=== PATIENT | female | born 1955 | race Caucasian/White ===

== ENCOUNTER 2018-02-21 00:45 | Outpatient (CLI) | payer BC, SELFPAY ==
--- NOTE | 2018-02-21 15:30 | DI.MAMMO_ITS ---
SYMPTOMS/DIAGNOSIS: SCREENING, Z12.31 MAMMOGRAM: Mammograms were interpreted according to the usual protocol including computer analysis with CAD system, tomosynthesis and C view imaging. The breasts are heterogeneously dense. No dominant mass or clumped microcalcification identified in either breast. Current examination is compared with previous examinations including January 2017 and there has been no gross interval change in appearance in comparison with the previous studies. CONCLUSION: No specific evidence of malignancy at this time. Routine screening examinations are suggested at yearly intervals in this age group according to the ACS/ACR guidelines. Category 1, breast density category C. MQSA ASSESSMENT OF FINDINGS: Negative. Category 1. Patient will receive a letter notifying them of these results. Bi-RADS category C. The breasts are heterogeneously dense, which may obscure small masses.
== END 2018-02-21 01:05 ==
PROVIDERS: PCP Nurse Practitioner; Visit Provider Nurse Practitioner
DX: Z12.31 Encounter for screening mammogram for malignant neoplasm of breast (principal)
CPT/HCPCS: 77063; 77067

== ENCOUNTER 2019-02-22 02:01 | Outpatient (CLI) | payer BC, SELFPAY ==
--- NOTE | 2019-02-22 15:54 | DI.MAMMO_ITS ---
EXAM: MAMMO SCREENING CLINICAL HISTORY: SCREENING Z12.31. TECHNIQUE: Mammograms were interpreted according to the usual protocol including computer analysis w [employer] CAD system, tomosynthesis and C-view imaging. COMPARISON: Comparison is made with previous studies. FINDINGS: The breasts are of heterogeneously dense appearance. No dominant mass or clumped microcalcification i s identified in either breast. Current examination is compared with previous examinations including O ctober 2018 and there has been no gross interval change in appearance in comparison with previous denis dies. IMPRESSION: No specific evidence of malignancy at this time. Routine screening examinations are suggested at year ly intervals in this age group according to the ACS ACR guidelines category 1. Breast density catego ry C. BI-RADS Cat 1 - Negative. Breast Density - Category C - Heterogeneously dense.
== END 2019-02-22 02:21 ==
PROVIDERS: PCP Nurse Practitioner; Visit Provider Nurse Practitioner Family
DX: Z12.31 Encounter for screening mammogram for malignant neoplasm of breast (principal)
CPT/HCPCS: 77063; 77067

== ENCOUNTER 2019-11-19 17:47 | Outpatient (REF) | payer BC, SELFPAY ==
--- NOTE | 2019-11-19 16:00 | PAPFT_PTH ---
PATIENT: Monse Reyes LOC: [facility]#:[id number] AGE/SX: 64/F ROOM: RE11/19/[address]: Sue Sandoval : 1955 BED: DIS: 11/19/2019 SPEC #: [id number] RECD: 11/20/19 12:52 STATUS: KRISTINE REQ #: [id number] CHARITY: 11/19/19 16:[address]: Sue Sandoval DEPT: [facility] Cytology RECD BY: Emely Meza ENTERED: 11/20/19 12:52 SP TYPE: PAPFT OTHR DR: Aaliyah Martinez Tissues: 1 - CX/ENDOCX FOR PAP SMEARS Procedures: PAP THIN PREP/UVM Screening Comments: [id number] (UNSATISFACTORY FOR EVALUATION)
== END 2019-11-19 18:07 ==
LOC: NCHCN 17:47
PROVIDERS: PCP Nurse Practitioner; Visit Provider Family Medicine
DX: Z00.00 Encounter for general adult medical examination without abnormal findings (principal); Z12.4 Encounter for screening for malignant neoplasm of cervix; Z11.51 Encounter for screening for human papillomavirus (HPV); Z01.419 Encounter for gynecological examination (general) (routine) without abnormal findings; R87.615 Unsatisfactory cytologic smear of cervix
CPT/HCPCS: 88142

== ENCOUNTER 2020-03-03 00:41 | Outpatient (CLI) | payer BC, SELFPAY ==
--- NOTE | 2020-03-03 | DI.MAMMO_ITS ---
EXAM: MG MAMMO SCREENING CLINICAL HISTORY: SCREENING, Z12.31 TECHNIQUE: Bilateral full field digital CC and MLO mammographic images were obtained with 3D tomosyn thesis and utilizing computer aided detection (CAD). COMPARISON: Available for comparison. FINDINGS: Masses/Architectural Distortion: None seen. Microcalcifications: No suspicious pleomorphic-type are seen. Skin Thickening/Nipple Retraction: None. IMPRESSION: 1. No significant interval change with no specific features of malignancy noted. 2. Unless there is more urgent need, screening mammography is recommended, as per [employer] guidelines. BI-RADS Category 1 - Negative Breast Density - Category C - Heterogeneously dense The mammogram demonstrates the patient's breast tissue is dense. Dense breast tissue is very common a nd is not abnormal but dense breast tissue can make it harder to find cancer on a mammogram. Also, de nse breast tissue may increase their breast cancer risk. This information about the result of the [facility] mogram report was provided to the patient to raise their awareness. Use this report when you speak wi th the patient about their risks for breast cancer, which includes their family history. At that time , you may recommend for more screening tests (Ultrasound or MRI) as they might be useful based on the ir risk. A negative radiographic report should not delay biopsy if a dominant or clinically suspicious mass is present. Up to ten percent of cancers are not identified on mammography. A negative report may reinforce clinical impression. Adenosis and dense breasts may obscure an underlying neoplasm. False positive reports average 6 to 10%. Patient will receive a letter notifying them of these results.
== END 2020-03-03 01:01 ==
PROVIDERS: PCP Family Medicine; Visit Provider Family Medicine
DX: Z12.31 Encounter for screening mammogram for malignant neoplasm of breast (principal)
CPT/HCPCS: 77063; 77067

== ENCOUNTER 2020-11-17 18:19 | Outpatient (REF) | payer BC, SELFPAY ==
[2020-11-17 16:31] LABS: ALT 110 U/L (14-59); AST 61 U/L (15-37); Albumin 3.3 g/dL (3.4-5.0); Alkaline Phosphatase 461 U/L (46-116); Anion Gap 10.1 mmol/L (3-11); BUN 11 mg/dL (7-18); Bilirubin, Total 0.5 mg/dL (0.2-1.0); CO2 27.9 mmol/L (21.0-32.0); CREATININE 0.8 mg/dL (0.55-1.02); Calcium 9.5 mg/dL (8.5-10.1); Calculated LDL 73 mg/dL (<100); Chloride 103 mmol/L (98-107); Cholesterol 138 mg/dL (<200); Glucose 102 mg/dL (74-106); HDL Cholesterol 51 mg/dL (40-60); Potassium 4.6 mmol/L (3.5-5.1); Sodium 141 mmol/L (136-145); Total Protein 7.7 g/dL (6.4-8.2); Triglyceride 73 mg/dL (<150)
[2020-11-17 16:54] LABS: Vitamin D 25 Total 27.3 ng/mL (30-100)
== END 2020-11-17 18:20 | disposition home or self-care (01) ==
LOC: NCHCN 18:19
PROVIDERS: PCP Family Medicine; Visit Provider Family Medicine
DX: Z00.00 Encounter for general adult medical examination without abnormal findings (principal); E78.5 Hyperlipidemia, unspecified; I10 Essential (primary) hypertension
CPT/HCPCS: 80053; 80061; 82306

== ENCOUNTER 2020-12-17 19:40 | Outpatient (REF) | payer BC, SELFPAY ==
[2020-12-17 22:01] LABS: ALT 199 U/L (14-59); AST 127 U/L (15-37); Albumin 3.3 g/dL (3.4-5.0); Alkaline Phosphatase 852 U/L (46-116); Bilirubin, Direct 0.3 mg/dL (0.0-0.2); Bilirubin, Total 0.3 mg/dL (0.2-1.0); Total Protein 7.5 g/dL (6.4-8.2)
== END 2020-12-17 19:41 | disposition home or self-care (01) ==
LOC: NCHCN 19:40
PROVIDERS: PCP Family Medicine; Visit Provider Family Medicine
DX: R79.89 Other specified abnormal findings of blood chemistry (principal)
CPT/HCPCS: 80076

== ENCOUNTER 2020-12-30 17:13 | Outpatient (REF) | payer BC, SELFPAY ==
[2020-12-30 20:57] LABS: ALT 258 U/L (14-59); AST 161 U/L (15-37); Albumin 3.4 g/dL (3.4-5.0); Alkaline Phosphatase 765 U/L (46-116); Bilirubin, Direct 0.4 mg/dL (0.0-0.2); Bilirubin, Total 0.6 mg/dL (0.2-1.0); Total Protein 7.4 g/dL (6.4-8.2)
[2021-01-01 09:01] LABS: HBs Antibody, Quant <3.1 mIU/mL (See Note); Hepatitis B Surface Ab Negative (See Note)
[2021-01-01 10:08] LABS: Hepatitis C Ab w Rflx HCV PCR Negative (Negative)
== END 2020-12-30 17:14 | disposition home or self-care (01) ==
LOC: NCHCN 17:13
PROVIDERS: PCP Family Medicine; Visit Provider Family Medicine
DX: R79.89 Other specified abnormal findings of blood chemistry (principal)
CPT/HCPCS: 80076; 86706; 86803

== ENCOUNTER 2021-01-05 15:27 | Outpatient (REF) | payer BC, SELFPAY ==
[2021-01-05 21:40] LABS: ALT 82 U/L (14-59); AST 25 U/L (15-37); Albumin 3.4 g/dL (3.4-5.0); Alkaline Phosphatase 532 U/L (46-116); Bilirubin, Direct 0.1 mg/dL (0.0-0.2); Bilirubin, Total 0.2 mg/dL (0.2-1.0); Total Protein 7.6 g/dL (6.4-8.2)
== END 2021-01-05 15:28 | disposition home or self-care (01) ==
LOC: NCHCN 15:27
PROVIDERS: PCP Family Medicine; Visit Provider Family Medicine
DX: R79.89 Other specified abnormal findings of blood chemistry (principal)
CPT/HCPCS: 80076

== ENCOUNTER 2021-01-23 04:41 | Outpatient (CLI) | payer BC, SELFPAY ==
[2021-01-23] MEDS: Breeza Beverage 473 ML BTL PO ×2 (07:49→07:50)
[2021-01-23] MEDS: Omnipaque 350 MG/ML 50 ML BTL PO (07:50)
[2021-01-23 07:54] LABS: CREATININE 0.8 mg/dL (0.55-1.02)
--- NOTE | 2021-01-23 09:21 | DI.CT_ITS ---
Exam(s) CT ABDOMEN PELVIS W EXAM: CT ABDOMEN PELVIS W CLINICAL HISTORY: PANCREATIC LESION,K86.9 TECHNIQUE: COMPARISON: CT ABD PELVIS WITH CONTRAST from 01/26/2012 FINDINGS: CT examination of the abdomen and pelvis was performed with bolus infusion 100 cc of Omnipaque 350 an d ingestion of dilute barium. Images obtained through the lung bases are unremarkable. Liver is mildly enlarged and contains numerous cysts, as seen on prior CT of January 2012. There i s marked intra and extrahepatic biliary dilatation with the common duct measuring up to 16 millimeter s in diameter. There is an apparent obstructing lesion distal common bile duct with a rounded appear ance suggesting a soft tissue mass, measuring about 1 cm to 1.5 cm in diameter. Pancreatic duct is m inimally dilated. Pancreatic head shows heterogeneous attenuation with no definite mass. No other hepatic mass identified. Spleen is unremarkable in appearance. Gallbladder appears contrac ritu and thick walled and there is a dilated cystic duct. There are multiple loops of dilated small bowel with disordered folds in the right lower quadrant. F indings are nonspecific. Differential diagnosis would include inflammatory or neoplastic disease. There is a left lower quadrant colostomy, please correlate regarding reason for colectomy. No eviden ce of bowel obstruction. Abdominal aorta is of normal diameter with heavily calcified wall. Major visceral branches appear pa tent. Adrenals are unremarkable in appearance bilaterally. Multiple renal cysts are noted bilaterally, no solid renal lesion identified. No nephrolithiasis hyd ro nephrosis or ureterolithiasis. No gross abdominal or pelvic adenopathy seen. No significant abdominal wall hernia. Appendix is normal. No evidence of diverticulitis. There is a right pelvic cyst noted measuring about 28 x 9 millimeters in diameter. This could be of ovarian origin or be related to prior pelvic surgery. Pelvic ultrasound suggested for correlation. Apparent small bowel located in the pelvis appears to communicate with rectosigmoid remnant, please c orrelate regarding prior surgical procedure, fistula not excluded. IMPRESSION: Findings are highly suggestive of an obstructing lesion of the distal common bile duct, probably a so lid mass. Correlation with ERCP recommended. Mass could originate in the head of the pancreas or wi thin the bile duct. Prior bowel surgery with left lower quadrant colostomy, please correlate with surgical history, fistu la not excluded as described above. Abnormal loops of small bowel, nonspecific, are also noted in right lower quadrant, inflammatory or n eoplastic disease not excluded. RADIATION DOSE DELIVERED: 892.85mGy.cm Total DLP 13.33mGy CTDIvol RADIATION OPTIMIZATION: All CT scans at this facility use at least one of these dose optimization te chniques: automated exposure control; mA and/or kV adjustment per patient size (includes targeted exa ms where dose is matched to clinical indication); or iterative reconstruction.
[2021-01-23] MEDS: Omnipaque 350 MG/ML 100 ML BTL IJ (09:22)
[2021-01-23] MEDS: Normal Saline 20 ML VIAL IJ (09:24)
== END 2021-01-23 05:01 ==
PROVIDERS: PCP Family Medicine; Visit Provider Family Medicine
DX: K86.9 Disease of pancreas, unspecified (principal); R93.5 Abnormal findings on diagnostic imaging of other abdominal regions, including retroperitoneum
CPT/HCPCS: 74177; 82565; J3490; Q9967

== ENCOUNTER 2021-04-29 16:46 | Outpatient (REF) | payer BC, SELFPAY ==
[2021-04-29 22:24] LABS: ALT 22 U/L (14-59); AST 15 U/L (15-37); Albumin 3.7 g/dL (3.4-5.0); Alkaline Phosphatase 88 U/L (46-116); Bilirubin, Direct 0.1 mg/dL (0.0-0.2); Bilirubin, Total 0.2 mg/dL (0.2-1.0); Total Protein 7.7 g/dL (6.4-8.2)
[2021-05-01 08:53] LABS: HBs Antibody, Quant 3.3 mIU/mL (See Note); Hepatitis B Surface Ab Negative (See Note)
== END 2021-04-29 16:47 | disposition home or self-care (01) ==
LOC: NCHCN 16:46
PROVIDERS: PCP Family Medicine; Visit Provider Family Medicine
DX: R79.89 Other specified abnormal findings of blood chemistry (principal)
CPT/HCPCS: 80076; 86706

== ENCOUNTER 2021-11-24 10:18 | Outpatient (REF) | payer BC, SELFPAY ==
[2021-11-24 15:58] LABS: ALT 23 U/L (14-59); AST 18 U/L (15-37); Albumin 3.7 g/dL (3.4-5.0); Alkaline Phosphatase 73 U/L (46-116); Anion Gap 9.7 mmol/L (3-11); BUN 20 mg/dL (7-18); Bilirubin, Total 0.4 mg/dL (0.2-1.0); CO2 27.3 mmol/L (21.0-32.0); CREATININE 0.8 mg/dL (0.55-1.02); Calcium 9.1 mg/dL (8.5-10.1); Calculated LDL 213 mg/dL (<100); Chloride 100 mmol/L (98-107); Cholesterol 290 mg/dL (<200); Glucose 93 mg/dL (74-106); HDL Cholesterol 49 mg/dL (40-60); Potassium 4.7 mmol/L (3.5-5.1); Sodium 137 mmol/L (136-145); Total Protein 7.5 g/dL (6.4-8.2); Triglyceride 143 mg/dL (<150)
== END 2021-11-24 10:19 | disposition home or self-care (01) ==
LOC: NCHCN 10:18
PROVIDERS: PCP Family Medicine; Visit Provider Family Medicine
DX: I10 Essential (primary) hypertension (principal); E78.5 Hyperlipidemia, unspecified; Z00.00 Encounter for general adult medical examination without abnormal findings
CPT/HCPCS: 80053; 80061

== ENCOUNTER 2021-12-08 17:25 | Outpatient (REF) | payer BC, SELFPAY ==
[2021-12-08 15:25] LABS: Abs Immature Grans 0.12 10^3/uL (0.0-0.06); Absolute Eosinophil Count 0.17 10^3/uL (0.0-0.7); Basophils % 0.6; Eosinophils % 0.8; HCT 46.7 % (36.0-46.0); HGB 15.1 g/dL (11.2-15.7); Immature Grans % 0.6; Lymphocytes % 12.3; MCH 27.2 pg (27.0-33.0); MCHC 32.3 % (32.0-36.0); MCV 84 fL (80-95); MPV 10.4 fL (8.0-11.0); Monocytes % 6.8; Neutrophils % 78.9; Platelet Count 547 10^3/uL (130-400); RBC 5.56 10^6/uL (3.93-5.22); RDW 13.2 % (11.7-14.6); RDW-SD 41.1 fL; WBC 21.36 10^3/uL (4.4-10.8)
[2021-12-08 15:28] LABS: Absolute Basophil Count 0.13 10^3/uL (0.0-0.2); Absolute Lymphocyte Count 2.63 10^3/uL (1.2-3.4); Absolute Monocyte Count 1.45 10^3/uL (0.1-0.8); Absolute Neutrophil Count 16.85 10^3/uL (1.2-6.7)
[2021-12-08 15:32] LABS: ESR 110 mm/hr (0-30)
[2021-12-08 15:53] LABS: ALT 18 U/L (14-59); AST 15 U/L (15-37); Albumin 3.2 g/dL (3.4-5.0); Alkaline Phosphatase 80 U/L (46-116); Anion Gap 14.3 mmol/L (3-11); BUN 14 mg/dL (7-18); Bilirubin, Total 0.4 mg/dL (0.2-1.0); CO2 28.7 mmol/L (21.0-32.0); CREATININE 0.9 mg/dL (0.55-1.02); Calcium 9.6 mg/dL (8.5-10.1); Chloride 94 mmol/L (98-107); Glucose 109 mg/dL (74-106); Potassium 3.4 mmol/L (3.5-5.1); Sodium 137 mmol/L (136-145); Total Protein 7.9 g/dL (6.4-8.2)
== END 2021-12-08 17:26 | disposition home or self-care (01) ==
LOC: NCHCN 17:25
PROVIDERS: PCP Family Medicine; Visit Provider Family Medicine
DX: R10.9 Unspecified abdominal pain (principal); R19.7 Diarrhea, unspecified
CPT/HCPCS: 80053; 85652; 85025

== ENCOUNTER → 2021-12-09 09:53 | Outpatient (CLI) | payer BC, SELFPAY ==
--- NOTE | 2021-12-09 | DI.CT_ITS ---
Exam(s) CT ABDOMEN PELVIS W EXAM: CT ABDOMEN PELVIS W CLINICAL HISTORY: ACUTE ABD PAIN, R10.9. TECHNIQUE: Imaging Protocol: Axial computed tomography images with coronal and sagittal reformatted images were created and reviewed CONTRAST MATERIAL: Intravenous: Omnipaque 350 Contrast volume:100 ml Oral: yes / COMPARISON: CT CT ABDOMEN PELVIS W from 01/23/2021 FINDINGS: ABDOMEN: Lung Bases: Normal where visualized. Liver: Normal density. No measurable mass. Gallbladder and biliary tract: Gallbladder contracted. Previously noted mass at the distal common bi le duct no longer seen. No radiodense calculus or dilation. Pancreas: Mildly atrophic. No ductal dilatation. Spleen: Normal. Kidneys: Normal size, contour and axis. No radiodense stones or obstructive uropathy. Several small b ilateral renal cysts. No masses seen. Adrenal glands: No masses seen. Abdominal Aorta: Abdominal portion non-dilated. Atherosclerotic changes. PELVIS: Bladder: Nearly empty no gross wall thickening. No calculi.No focal mass. Bowel: Left-sided colostomy. No evidence of obstruction. Marked wall thickening of the colon from t he ascending portion through the ostomy. Appendix normal. Peritoneal cavity: No ascites, collection . Bones: The degenerative changes. Apparent fusion between facet L4 and L5. Reproductive organs: Stab le small right ovarian cyst. Lymph nodes: Unremarkable. Impression: Marked diffuse wall thickening throughout the colon, consistent with colitis. RADIATION DOSE DELIVERED: 759.69mGy.cm Total DLP DATA REPOSITORY: All CT scans at this facility are submitted to the National Radiology Data Registry (NRDR) Dose Index Registry (DIR) with the [employer] (ACR). RADIATION OPTIMIZATION: All CT scans at this facility use at least one of these dose optimization te chniques: automated exposure control; mA and/or kV adjustment per patient size (includes targeted exa ms where dose is matched to clinical indication); or iterative reconstruction.
--- OUTSIDE RECORDS SUMMARY | 2021-12-09 09:56 | XMS_ITS | Encounter Summary ---
:1955 Author Organization [facility] [place] [address] Care Team Providers Name Role Phone Puneet Kuamr APRN Primary Care Provider Encounter Details Date Type Department Care Team Description 01/26/2012 Orders Only Radiology Brianna Ochoa MD Abscess (Primary Dx) [facility] [place] [address] DIAGNOSTIC [phone] RADIOLOGY [place], [place] [address] (Wo rk) Social History Tobacco Use Types Packs/Day Years Used Date Never Assessed Sex Assigned at Date Recorded Not on file documented as of this encounter Progress Notes Brianna Ochoa MD - 01/26/2012 5:47 PM EDT PRE-PROCEDURE VIR NOTE Date of : 1955 Age: 56 y.o. PCP: PUNEET KUMAR APRN Referring Physician (if different): LAUREN ([phone]) Indication: Pelvic abscess Planned Procedure: CT guided right transgluteal pelvic abscess drain placement Chief Complaint/Diagnosis: 56 yo female 6d s/p Colon resection with end colostomy and abscess washout with persistently elevated WBC. CT scan shows persistent pelvic abscess. Pertinent Past Medical/Surgical History: Perforated diverticulitis over a year ago for which her colostomy was taken down September 2011. HTN Allergies not on file No current outpatient prescriptions on file prior to encounter. Pertinent ROS: as per HPI Pertinent Family History: non contributory Social History: n/a Labs: No results found for this basename: wbc, anc, hct, platelet, inr, bun, cr, gfr No results found for this basename: alkphos, ast, albumin, bilidir, bilitot, alt, [facility] 01/25/12 eGFR >60 Platelet 537,000 INR 1.1 Imaging: Outside CT from [facility] as above Assessment / Plan: CT guided right transgluteal pelvic abscess drain placement Medications to discontinue: none Prophylactic antibiotic: none (currently on ABx) Planned access site / position: prone, right documented in this encounter Plan of Treatment Not on filedocumented as of this encounter Results CT retroperitoneal abscess drain (01/27/2012 1:26 PM EDT) Anatomical Region Laterality Modality Abdomen Computed Tomography Specimen (Source) Anatomical Collection Method Collection Time Re ceived Time Location / / Volume Laterality 01/27/2012 1:26 PM EDT Narrative 01/28/2012 5:01 PM EDT ?VIR ?? PROCEDURE NOTE ?Procedure: ?? CT-guided pelvic abscess drainage catheter placement (acc ?? # [id number]) ?Indication : Persistently elevated WBC s/p ?? colon resection with OSH CT positive for pelvic abscess. We have been ?? consulted for abscess drain age. ?Technique: ?? After discussing risks (including infection and hemorrhag e), and benefits, ?? patient consented to the procedure. ?Due ?? to the dylan nful nature of the procedure, split doses of fentanyl and versed ?? were administe red by the IR nurse during continuous monitoring of pulse, ?? blood pressure a nd oxygen saturation. Total dose of fentanyl 200 mcg IV, versed 4 mg IV. ?Pelvic ?? abscess was localized with noncontrast CT pelvis. ?? After sterile preparation overlying skin using maximum sterile barrier ?? technique, 1% lidocai ne SQ was administered for ?? anesthesia, and an 18 ga needle was advanced under C T fluoroscopic guidance ?? into the collection. Over an .035 guidewire, ?? tract was dilated to 10 Fr, and a 10.2 Fr locking pigtail drain was placed. Cat heter was secured ?? to the skin and left to bulb drainage. Post-procedure CT images were ?? obtained. Patient tolerated the procedure well. There were no immediate ?? complications. ? Findings: ?? 50cc bloody purulent fluid aspirated. Sample sent for microbiological ?? analysis. ?Impres bridger: ?? Successful CT guided transgluteal pelvic abscess ?? drainage catheter plac ement. ?Resident/Fellow: ?? Robert Arzate MD ?Attending: ?? Brianna Ochoa MD ?I, ?? Dr. Ochoa, was present and scrubbed for the entire procedure. ?EBL: ?? 0 ? ; ?? {CR} ? ; ?? {CR} ? ; ?? {CR} ? ; ?? {CR} ? ; ?? {CR} ? Film and interpretation reviewed by the attending Procedure Note Brianna Ochoa MD - 01/28/2012 VIR PROCEDURE NOTE Procedure: CT-guided pelvic abscess drainage catheter placement (acc # [id number]) Indication : Persistently elevated WBC s/p colon resection with OS H CT positive for pelvic abscess. We have been consulted for abscess drainage . Technique: After discussing risks (including infection and hemorrhag e), and benefits, patient consented to the procedure. Due to the painful ashley ure of the procedure, split doses of fentanyl and versed were administered by the IR nurse during continuous monitoring of pulse, blood pressure and oxygen saturation. Total dose of fentanyl 200 mcg IV, versed 4 mg IV. Pel nicolette abscess was localized with noncontrast CT pelvis. After sterile pre paration overlying skin using maximum sterile barrier technique, 1% lidocaine SQ was administered for anesthesia, and an 18 ga needle was advanced under C T fluoroscopic guidance into the collection. Over an .035 guidewire, tra ct was dilated to 10 Fr, and a 10.2 Fr locking pigtail drain was placed. Cat heter was secured to the skin and left to bulb drainage. Post-procedure CT images were obtained. Patient tolerated the procedure well. There were no immediate complications. Findings: 50cc bloody purulent fluid asp irated. Sample sent for microbiological analysis. Impression: Gutierres ccessful CT guided transgluteal pelvic abscess drainage catheter placeme nt. Resident/Fellow: Robert Arzate MD Attending: Brianna Ochoa MD I, Dr. Ochoa, was present and scrubbed for the entire procedure. E BL: 0 ; {CR} ; {CR} ; {CR} ; {CR} ; {CR} Film and interpretation reviewed by the attending Brianna Ochoa MD IMG CT ORDERABLES documented in this encounter Visit Diagnoses Diagnosis Abscess - Primary Cellulitis and abscess of unspecified si te Abscess Cellulitis and abscess of unspecified si te documented in this encounter Care Teams Clocksmith Relationship Specialty Start Date End Date Puneet Kumar APRN PCP - General 03/11/11 02/05/21 [address] [place] [address] documented as of this encounter
--- OUTSIDE RECORDS SUMMARY | 2021-12-09 09:56 | XMS_ITS | Encounter Summary ---
:1955 Author Organization [facility] [place] [address] Care Team Providers Name Role Phone Tiffanie Kumar APRN Primary Care Provider Encounter Details Date Type Department Care Team Description 01/23/2021 Ancillary Procedure Radiology Library at Sue Sandoval MD [facility] [address] [place] [address] [facility] [phone] [place] [address] (Work) [phone] Social History Tobacco Use Types Packs/Day Years Used Date Never Assessed Sex Assigned at Date Recorded Not on file documented as of this encounter Plan of Treatment Not on filedocumented as of this encounter Procedures Procedure Name Priority Date/Time Associated Diagnosis Comme nts FILM LIBRARY Routine 01/23/2021 12:00 AM Results for this STORAGE ONLY CT EDT procedure ar e in ABDOMEN AND PELVIS the resul ts section. documented in this encounter Results Film Library- Storage Only CT Abdomen & Pelvis (01/23/2021 12:00 AM EDT) Specimen (Source) Anatomical Location Collection Method / Collectio n Time Received Time / Laterality Volume Narrative CAIO - 01/28/2021 4:07 PM EDT This exam is auto-finalizing. It's purpo se is for storage only. Sue Sandoval MD IMG FILM LIBRARY ORDERABLES Performing Organization Address City/State/ZIP Code Phon e Number [place], [place] documented in this encounter Visit Diagnoses Not on filedocumented in this encounter Care Teams Senior Vice President And Chief Information Officer Relationship Specialty Start Date End Date Tiffanie Kumar APRN PCP - General 03/11/11 02/05/21 [address] [place], [place] [id number] documented as of this encounter
--- OUTSIDE RECORDS SUMMARY | 2021-12-09 09:56 | XMS_ITS | Encounter Summary ---
:1955 Author Organization [facility] [place] [address] Care Team Providers Name Role Phone Tiffanie Kumar FABIEN Primary Care Provider Encounter Details Date Type Department Care Team Description 02/03/2021 Telephone Gastroenterology at [facility] [place] Debbie Kyle [facility] [place] [address] Social History Tobacco Use Types Packs/Day Years Used Date Never Assessed Sex Assigned at Date Recorded Not on file documented as of this encounter Miscellaneous Notes Telephone Encounter - Debbie Kyle - 02/03/2021 3:01 PM EDT Monse Reyes [id number] Diagnosis/Indication: 65-year-old smoker recently found to have elevated AST/ALT (but normal T bili)on routine labs. First attributed to statin/Tylenol use, both stopped. Referred for RUQ U/S & CTwith intra and extrahepatic chris dil, possible obstructive lesion (pancreatic head v ampullary). 1. Have you ever had a/an EUS & ERCP before? No If yes, did you have any problems with the procedure? No What type of sedation was used: None 2. Do you take any blood thinners or have you been diagnosed with a bleeding disorder that increasesyour risk of bleeding with procedures? No 3. Do you have a Pacemaker or Defibrillator device? No 4. Are you a diabetic? No 5. Do you have any Allergies to Eggs, Latex or Medications? No 6. Do you take any Oral Iron Supplements (Including multi-vitamins)? Yes (Multivitamin) 7. Do you have a history of three or more abdominal surgeries? No 8. Have you had a problem with sedation or anesthesia? No 9. Do you use a c-pap machine or oxygen tank? Neither 10. Do you take prescription narcotic pain medications, including suboxone or methodone? No 11. Do you have a preference regarding the gender of your provider? No Preference 12. Is there any other information you would like to us to note for the provider and nursing team who will perform your case? No 13. Say to patient: You must have a responsible democrat who will drive you to your procedure, stay on campus for the entire duration of your procedure, and drive you home from your procedure? *Please Verify the height and weight, and adjust if height and/or weight have changed* *Delete if not needed* Height: 5' 1 Weight: 127 BMI:24 Age:65 y.o. documented in this encounter Plan of Treatment Not on filedocumented as of this encounter Visit Diagnoses Not on filedocumented in this encounter Care Teams Case Management Director Relationship Specialty Start Date End Date Tiffanie Kumar APRN PCP - General 03/11/11 02/05/21 [address] [place] [address] documented as of this encounter
--- OUTSIDE RECORDS SUMMARY | 2021-12-09 09:56 | XMS_ITS | Encounter Summary ---
:1955 [place] [address] Care Team Providers Name Role Phone Tiffanie Kumar FABIEN Primary Care Provider Encounter Details Date Type Department Care Team Description 01/27/[address] Scan at [facility], CONV Abscess [facility] Eugenia Ochoa MD [facility] [place] [address] [place] [address] Social History Tobacco Use Types Packs/Day Years Used Date Never Assessed Sex Assigned at Date Recorded Not on file documented as of this encounter Last Filed Vital Signs Vital Sign Reading Time Taken Comments Blood Pressure 127/76 01/27/2012 2:00 PM EDT Pulse 90 01/27/2012 2:00 PM EDT Temperature 36.7 ??C (98.1 ??F) 01/27/2012 1:49 PM EDT Respiratory Rate 18 01/27/2012 2:00 PM EDT Oxygen Saturation 99% 01/27/2012 2:00 PM EDT Inhaled Oxygen Concentration - - Weight - - Height - - Body Mass Index - - documented in this encounter Discharge Instructions Discharge InstructionsMorelia Workman RN - 01/27/2012 1:59 PM EDT [facility] Vascular and Interventional Radiology Discharge Instructions for Tube Care Activity: Rest for the next 24 hours.You may be sore for several days after the tube is inserted. This may limit your activity. You should be careful to avoid activity that causes a pulling sensation, pain or kinking of the tube. When to call your healthcare provider: There may be a little blood in the drainage after the tube is placed or changed. Contact your healthcare provider if the bleeding doesn???t stop in a couple of days or if the drainage becomes bright red. If drainage leaks around the tube, or there is decreased drainage into the bag or bulb. If the tube stops draining. If skin around the tube is red or irritated or if you see any swelling or drainage around the tube. If you have shaking chills. If you have a fever equal to or greater than 101 degrees Fahrenheit If you have unusual pain at the tube site. If the smell of the drainage becomes strong, call your healthcare provider. Tube Care: If your tube is connected to a drainage bag or bulb, it is important to empty it regularly. Monitor the dressing daily and change as needed. You may take a shower but you must cover the dressing with plastic wrap to keep it dry. It may be easier to take a sponge bath. You may NOT take a tub bath or swim. It is important that you take care of your tube. It can be pulled out if it is caught on something.If you think the tube is partly pulled out or if it comes out completely, we can usually put it backin easily if you come to see us within 12-24 hours. It is important to keep the skin around the tube healthy. You should clean the area with soap and water a minimum of three times per week. Replace the gauze dressing after you have cleaned and completely dried the skin. x Please flush your drain as instructed with _5 cc of Normal Saline, using the syringes supplied to you. When to call the Interventional Radiology Department: Please call with any questions or concerns. Ifit is during regular office hours, please call [phone]. If it is after regular office hours, oron weekends or holidays, please call [phone] and ask to speak to the Yard Labor Supervisor on callfor Interventional Radiology. You may have received medication during your procedure to help lesson anxiety and keep you comfortable. We recommend that you do not drive, operate equipment, sign any important documents, or smoke unattended for 24 hours following your procedure. You may have received medication before and/or during your procedure, which affects judgement and reaction time. Be careful on stairs, as you may be unsteady on your feet. You may eat a regular diet as tolerated IV site -- slight redness, or tenderness is normal, you can use a warm compress. If tenderness and redness increases or foul drainage occurs, please contact your M. D. 06/04/11 Revised 01/15/11 documented in this encounter Progress Notes Morelia Workman RN - 01/27/2012 2:06 PM EDT Pt d/c'd with [facility] RN by her side. Report given to her as well as Jess at [facility]. Eugenia Ochoa MD - 01/27/2012 12:13 PM EDT Addendum: The patient's history and physical exam have been reviewed and completed. There has been no intervalchange from that of the pre-operative history and physical exam done within the last 30 days. Risks (including hemorrhage, infection, allergic reaction, occlusion, respiratory depression), and benefits discussed and patient consented to the procedure. Physical Exam Heart: RRR Lungs: clear ASA Classification: ASA 3 - Patient with moderate systemic disease with functional limitations Mallampati Classification: I (soft palate, uvula, fauces, tonsillar pillars visible) Ashok Alexander RN - 01/26/2012 6:13 PM EDT [facility] NURSING DATABASE Name: MONSE FLORES Date of : 1955 AGE 56 y.o. Address: [address] [address] (home) Mobile: No relevant phone numbers on file. Referring Provider: Eugenia Ochoa Reason for Visit: CT RETROPERITONEAL ABSCESS DRAIN Date to be done (approx) : 01/27/2012 Reason for exam and clinical history: Persistently elevated WBC s/p colon resection with pelvic abscess on CT Is the patient ? Unknown Where will study be performed? [facility] Laterality Right Other pertinent information: transgluteal approach NKDA Pertinent PMH: HTN Diverticulosis, diverticulitis Pertinent PSH: 2010 Colon resection and colostomy for ruptured diverticulum 09/2011 Colostomy reversal Social Hx: Tobacco: Denies EtOH: Denies Date/Procedure Comments: No hx in edh or cis 01-27-12 CT guided retroperitoneal abscess drain VERSED 4 MG, FENTANYL 200 MCG IV LABORATORY DATA [facility] 01-25-12 Bun 6 CREATININE 0.4 POTASSIUM 4.0 PLATELET 583 Laboratory Results: No results found for this basename: inr No results found for this basename: PT, PTT No results found for this basename: BUN No results found for this basename: creatinine No results found for this basename: k No results found for this basename: PLATELET Medications: Prior to Admission medications Not on File documented in this encounter Procedure Notes Eugenia Ochoa MD - 01/27/2012 1:29 PM EDTProcedure(s): CT GUIDED DRAIN RETROPERITONEAL ABSCESS; CT GUIDED DRAIN RETROPERITONEAL ABSCESS VIR PROCEDURE NOTE Procedure: CT-guided pelvic abscess drainage catheter placement (acc # [id number]) Indication : Persistently elevated WBC s/p colon resection with OSH CT positive for pelvic abscess. We have been consulted for abscess drainage. Technique: After discussing risks (including infection and hemorrhage), and benefits, patient consented to the procedure. Due to the painful nature of the procedure, split doses of fentanyl and versed were administered by the IR nurse during continuous monitoring of pulse, blood pressure and oxygen saturation. Total dose of fentanyl 200 mcg IV, versed 4 mg IV. Pelvic abscess was localized with noncontrast CT pelvis. After sterile preparation overlying skin using maximum sterile barrier technique, 1% lidocaine SQ was administered for anesthesia, and an 18 ga needle was advanced under CT fluoroscopic guidance into the collection. Over an .035 guidewire, tract was dilated to 10 Fr, and a 10.2 Fr locking pigtail drain was placed. Catheter was secured to the skin and left to bulb drainage. Post-procedure CT images were obtained. Patient tolerated the procedure well. There were no immediate complications. Findings: 50cc bloody purulent fluid aspirated. Sample sent for microbiological analysis. Impression: Successful CT guided transgluteal pelvic abscess drainage catheter placement. Resident/Fellow: Robert Arzate MD Attending: Eugenia Ochoa MD I, Dr. Ochoa, was present and scrubbed for the entire procedure. EBL: 0 documented in this encounter Miscellaneous Notes Miscellaneous - Provider, Scanning - 02/02/2012 10:53 AM EDT Miscellaneous - Provider, Scanning - 02/02/2012 10:44 AM EDT documented in this encounter Plan of Treatment Not on filedocumented as of this encounter Procedures Procedure Name Priority Date/Time Associated Comments Diagnosis ANAEROBIC CULTURE Routine 01/27/2012 1:52 Results for this PM EDT procedure are i n the results section. BODY FLUID CULTURE, Routine 01/27/2012 1:52 AEROBIC & ANAEROBIC PM EDT BODY FLUID CULTURE, Routine 01/27/2012 1:50 Resul ts for this AEROBIC PM EDT procedure are i n the results section. CT RETROPERITONEAL Routine 01/27/2012 1:26 Abscess Result s for this ABSCESS DRAIN PM EDT procedure are in the results section. documented in this encounter Results ANAEROBIC CULTURE (01/27/2012 1:52 PM EDT) [facility] Method Time Signature Anaerobic CERNER Culture ? Patient Name: MONSE FLORES ? Ordered By: EUGENIA OCHOA [facility] ? MR#: [id number] ?LOC: ??3W ? /Sex: ??1955 (56 years), ? Female ? PROCEDURE: Anaerobic Culture ?SOURCE: Pelvic Fl ? COLLECTED: 01/27/2012 13:52 ? BODY SITE: Pelvic ? STARTED: 01/27/2012 13:52 ?FREE TEXT SOURCE: S/P COLON RESECTION W/PELVIC CHARITY ECTION ? FINAL REPORT ? Final Report ? Verified:01/31/2012 13:14 ? No anaerobic organisms isolated ? PRELIMINARY REPORT ? Preliminary Report ? Verified:01/28/2012 09:50 ? No anaerobic organisms isolated to date ? Specimen Anatomical Collection Method Collection Time Receive d Time (Source) Location / / Volume Laterality Pelvic Fluid PELVIC REGION / 01/27/2012 1:52 PM 2011 1:52 Unknown EDT PM EDT Comment: S/P COLON RESECTION W/PELVIC CO LLECTION Resulting Agency Comment Spec In Lab uEgenia Ochoa MD MICROBIOLOGY - GENERAL ORDER NATY Performing Organization Address City/State/[place] [address] BODY FLUID CULTURE (01/27/2012 1:50 PM EDT) Component Value Ref Test Analysis Performed At [facility] Range Method Time Signature Body Fluid CERNER Culture ? Patient Name: FLORES, MONSE ? Ordered By: EUGENIA OCHOA ? MR#: [id number] ?LOC: ??3W ? /Sex: ??1955 (56 years), ? Female ? PROCEDURE: Body Fluid Culture ?SOURCE: Pelvic Fl ? COLLECTED: 01/27/2012 13:50 ? BODY SITE: Pelvic ? STARTED: 01/27/2012 13:51 ?FREE TEXT SOURCE: S/P COLON RESECTION W/PELVIC CHARITY ECTION ? STAINS / PREPARATIONS ? Gram Stain Report ? Verified:01/27/2012 14:57 ? Many White Blood Cells seen ? No microorganisms seen. ? FINAL REPORT ? Final Report ? Verified:01/31/2012 09:10 ? Few Escherichia coli two morphologies ? PRELIMINARY REPORT ? Preliminary Report ? Verified:01/30/2012 10:27 ? Few Escherichia coli two morphologies ? Patient: FLORES, MONSE ? MR#: [id number] ? SUSCEPTIBILITY RESULTS ? Escherichia coli ?BERE Inter p ? Ampicillin ? R ? Ampicillin/Sulbactam ? R ? Aztreonam ?I ? Cefazolin ?R ? Cefoxitin ?R ? Ceftazidime ?I ? Ceftriaxone ?S ? Cefuroxime ? R ? Ciprofloxacin ?S ? Doripenem ?S ? Gentamicin ? S ? Meropenem ?S ? Piperacillin/Tazobactam ?S ? Trimethoprim/Sulfa ? S ? Tetracycline ? S ? Tobramycin ? S ? Patient: FLORES, MONSE ? MR#: [id number] ? Escherichia coli #2 ?BERE Inter p ? Ampicillin ? R ? Ampicillin/Sulbactam ? R ? Aztreonam ?S ? Cefazolin ?R ? Cefoxitin ?R ? Ceftazidime ?S ? Ceftriaxone ?S ? Cefuroxime ? R ? Ciprofloxacin ?S ? Doripenem ?S ? Gentamicin ? S ? Meropenem ?S ? Piperacillin/Tazobactam ?S ? Trimethoprim/Sulfa ? S ? Tetracycline ? S ? Tobramycin ? S ? Specimen Anatomical Collection Method Collection Time Receive d Time (Source) Location / / Volume Laterality Pelvic Fluid PELVIC REGION / 01/27/2012 1:50 PM 2011 1:50 Unknown EDT PM EDT Comment: S/P COLON RESECTION W/PELVIC CO LLECTION Resulting Agency Comment Spec In Lab Eugenia Ochoa MD MICROBIOLOGY - GENERAL ORDER NATY Performing Organization Address City/State/ZIP [place] [address] retroperitoneal abscess drain (01/27/2012 1:26 PM EDT) Anatomical Region Laterality Modality Abdomen Computed Tomography Specimen (Source) Anatomical Collection Method Collection Time Re ceived Time Location / / Volume Laterality 01/27/2012 1:26 PM EDT Narrative 01/28/2012 5:01 PM EDT ?VIR ?? PROCEDURE NOTE ?Procedure: ?? CT-guided pelvic abscess drainage catheter placement (acc ?? # [id number]) ?Indication : Persistently elevated WBC s/p ?? [...] ?Resident/Fellow: ?? Robert Arzate MD ?Attending: ?? Eugenia Ochoa MD ?I, ?? Dr. Ochoa, was present and scrubbed for the entire procedure. ?EBL: ?? 0 ? ; ?? {CR} ? ; ?? {CR} ? ; ?? {CR} ? ; ?? {CR} ? ; ?? {CR} ? Film and interpretation reviewed by the attending Procedure Note Eugenia Ochoa MD - 01/28/2012 VIR PROCEDURE NOTE Procedure: CT-guided pelvic abscess drainage catheter placement (acc # [id number]) Indication : Persistently elevated WBC s/p [...] placeme nt. Resident/Fellow: Robert Arzate MD Attending: Eugenia Ochoa MD I, Dr. Ochoa, was present and scrubbed for the entire procedure. E BL: 0 ; {CR} ; {CR} ; {CR} ; {CR} ; {CR} Film and interpretation reviewed by the attending Eugenia Ochoa MD IMG CT ORDERABLES documented in this encounter Visit Diagnoses Diagnosis Abscess Cellulitis and abscess of unspecified si te documented in this encounter Administered Medications Inactive Administered Medications - up to 3 most recent administrations Medication Order MAR Action Action Date Dose Rate Site fentaNYL 50mcg/mL injection Given 01/27/2012 1:17 PM EDT 200 mcg 25-50 mcg, Intravenous, EVERY 5 MIN PRN, Starting on Aminta 01/27/12 at 1130, Until Aminta 01/27/12 at 1328, Pain, Angio/IR (Intra-Procedure), Routine midazolam (VERSED) injection 0.5-1 mg Given 01/27/2012 1:17 PM EDT 4 mg 0.5-1 mg, Intravenous, EVERY 5 MIN PRN, Starting on Aminta 01/27/12 at 1130, Until Aminta 01/27/12 at 1328, Anxiety, Angio/IR (Intra-Procedure), Routine documented in this encounter Care Teams Sales Support Associate Relationship Specialty Start Date End Date Tiffanie Kumar APRN PCP - General 03/11/11 02/05/21 [address] [place] [address] documented as of this encounter
--- OUTSIDE RECORDS SUMMARY | 2021-12-09 09:56 | XMS_ITS | Encounter Summary ---
:1955 Author Organization [facility] [place] [address] Care Team Providers Name Role Phone Sue Sandoval MD Primary Care Provider Reason for Visit Auth/Cert Specialty Diagnoses / Procedures Referred By Contact Refer red To Contact Diagnoses Pancreatic mass 65-year-old smoker recently found to have elevated AST/ALT (but normal T bili) on routine labs. First attributed to statin/Tylenol use, both stopped. Referred for RUQ U/S & CT with intra and extrahe patic chris dil, possible obst ructive lesion (pancreatic head v ampullary). Procedures PRO ENDOSCOPIC US EXAM, ESOPH PRO ERCP,DIAGNOSTIC PRO ANESTH, COMBINED UPPER OR LOWER ENDOSCOPY PRO ANESTH, UGI ENDOSCOPY ERCP UPPER EUS- ENDOSCOPIC ULTRASOUND ERCP Referral ID Status Reason Start Date Expiration Date Visits Requ ested Visits Authorized [id number] 1 1 Encounter Details Date Type Department Care Team Description 02/16/2021 Anesthesia Event Gastroenterology at [facility] Eris Welch, [facility] [place] [address] [facility] [phone] DR ANESTHESIOLOGY [place], [place] [address] Anesthesia Record Procedure Summary Procedure Name Responsible Anesthesia Start Anesthesia Stop Anesthesiologist Time Time UPPER EUS- Eris Welch MD 02/16/21 0805 02/16/21 085 0 ENDOSCOPIC ULTRASOUND (N/A Trunk) Events Date Time Event Comment 02/16/2021 0733 0805 AN Verify 0805 Start 0805 An Start Data 0809 An Induction 0810 An Intubation 0812 Anesthesia Ready 0817 Procedure Start 0845 Procedure Stop 0849 Extubation/LMA Out 0849 an stop data 0850 Recovery or ICU Handoff Patient care was transferred to the destination unit staff after review of the patient's medica l history, current anesthetic/surgi khushbu status and plan, according to the Provider Handoff Checklist. 0850 Stop Name Total IV Lidocaine 50 mg Propofol 200 mg Succinylcholine 60 mg Ondansetron 4 mg Glucagon 1 mg Ciprofloxacin 400 mg Lactated Ringers 0 mL Agents Name O2 Air N2O Sevoflurane (et) Blood No blood administrations on file. Lines, Drains, and Airways Type Details Placement Removal Lumbar/CSF Drain 01/27/12; 1323; posterior; 01/27/12 1323 by abdomen; collapsible Sunny Romero, RN closed device (#10 FR. to PEPE cont. bulb suction drain.) PIV 02/16/21; 0735; metacarpal 02/16/21 0735 by 12/11 1027 by vein (top of hand), right; Emili Moncada Ferguson, Andrea efrt-nri-[id number] catheter RN system; 22 gauge; mago moncada rn; distraction, tolerated well, appears comfortable; 10/27/21 (LDA Cleanup utility RA#[id number]); 1027 (LDA Cleanup utility RA#[id number]) ETT Mask Ventilation: Easy 02/16/21 0815 by 02/16/21 0849 by (1); ETT Type: Cuffed, Dontae Steel, Dontae Oral; ETT Size: 7.5 mm; S, INDUSTRIAL LABORER S, INDUSTRIAL LABORER Mac Blade: 3; Notes: Asleep, Pre-O2, Stylette; Laryngoscopy Grade: 1; ETT Placement Verified By: Auscultation, Visual, Capnometry; Secured at Teeth: 22 cm; Inserted by: Milvia documented in this encounter Social History Tobacco Use Types Packs/Day Years Used Date Current Every Day Smoker Cigarettes 0.5 Smokeless Tobacco: Never Used Comments: started smoking at age 18; den ies vaping Alcohol Use Standard Drinks/Week Comments Not Currently 0 (1 standard drink = 0.6 oz pure alcoho l) Sex Assigned at Date Recorded Not on file documented as of this encounter OR Notes Anesthesia Postprocedure Evaluation - Eris Welch MD - 02/16/2021 9:20 AM EDT Department of Anesthesiology Post-procedure Note Patient: Monse Reyes Procedure Summary Date: 02/16/21 Room / Location: [facility] ENDO 2 / [facility] ENDOSCOPY Anesthesia Start: 804 Anesthesia Stop: 849 Procedures: UPPER EUS- ENDOSCOPIC ULTRASOUND (N/A Trunk) ERCP W/SPHINCTEROTOMY/PAPILLOTOMY (N/A Trunk) CHOLANGIOGRAM ERCP W/REMOVAL CALCULI/DEBRIS FROM BILARY/PANCREATIC DUCT(S) Diagnosis: (65-year-old smoker recently found to have elevated AST/ALT (but normal T bili) on routine labs. First attributed to statin/Tylenol use, both stopped. Referred for RUQ U/S & CT with intra and extrahepatic chris dil, possible obstructive lesion (pancreatic) (head v ampullary).) Surgeons: Kevin Alvarado MD Responsible Provider: Eris Welch MD Anesthesia Type: general ASA Status: 2 All Anesthesia Providers: Anesthesiologist: Eris Welch MD INDUSTRIAL LABORER: Dontae Steel CRNA Vitals Value Taken Time BP 127/91 02/16/21 0910 Temp Pulse Resp 18 02/16/21 0910 SpO2 96 % 02/16/21 0919 Pain Level 0 02/16/21 0910 Vitals shown include unvalidated device data. Patient Location: PACU/[facility] Level of Consciousness: Awake and Alert Pain Management: Satisfactory Analgesia PONV: None Cardiovascular Status: Hemodynamically Stable and At Baseline Respiratory Status: Supplemental O2 (NC or FM) and Stable Respiratory Status Postoperative Fluid Status: Intravascular EUvolemia Possible Anesthetic Complications: NONE apparent at time of evaluation Final Primary Anesthesia Type: General (The anesthetic type performed was the same as planned.) Comments: Anesthesia Preprocedure Evaluation - Eris Welch MD - 02/16/2021 7:31 AM EDT Pre-Anesthesia Evaluation for: Monse Reyes a 65 y.o. female. Procedure(s): UPPER EUS- ENDOSCOPIC ULTRASOUND ERCP There are no problems to display for this patient. No past medical history on file. No past surgical history on file. Social History Tobacco Use ??? Smoking status: Current Every Day Smoker Packs/day: 0.50 Types: Cigarettes ??? Smokeless tobacco: Never Used ??? Tobacco comment: started smoking at age 18; denies vaping Substance Use Topics ??? Alcohol use: Not Currently Social History Substance and Sexual Activity Drug Use Never No Known Allergies Medications: MAR and/or home medications have been reviewed. Physical Exam: Preprocedure Vitals Current as of 02/16/21 0731 BP: 145/72 Pulse: 78 Resp: SpO2: 97 Temp: 36.5 ??C (97.7 ??F) Height: 157.5 cm (5' 2) (02/16/21) Weight: 59 kg (130 lb) (02/16/21) BMI: 23.77 IBW: 50.1 kg (110 lb 7.8 oz) Last edited 02/16/21724 by CG Airway Assessment: Mallampati: III TM distance: >3 FB Neck ROM: full Cardiovascular Assessment: Rate: normal Pulmonary Assessment: unlabored breathing Dental Assessment: - normal exam Misc Assessment: Last Filed Perioperative Cognitive Screening None Anesthesia Plan: ASA 2 general, with a(n) intravenous induction 65 y/o woman with a PMH of HTN, anxiety, smoking, recently found to have biliary duct dilation here for EUS/ERCP. GA in the past without issues. NPO. Plan for GA, ETT. Region - Other Informed Consent: Anesthetic plan and risks discussed with patient. Plan discussed with INDUSTRIAL LABORER and attending. Anesthesia Screening documented in this encounter Plan of Treatment Not on filedocumented as of this encounter Visit Diagnoses Not on filedocumented in this encounter Administered Medications Inactive Administered Medications - up to 3 most recent administrations Medication Order MAR Action Action Date Dose Rate Site ciprofloxacin (Cipro) 400 mg in Given 02/16/2021 8:44 AM EDT 400 mg dextrose 5% 200 mL infusion Intravenous, PRN, Starting on Tue02/16/21 at 0844, Until Tue02/16/21 at 0850, Administer over 60 Minutes, Anesthesia Intra-op glucagon (Glucagen) (1 mg/mL) injection Given 02/16/2021 8:31 AM EDT 1 mg solution Intramuscular, PRN, Starting on Tue02/16/21 at 0831, Until Tue02/16/21 at 0850, Anesthesia Intra-op, Routine lactated ringers infusion New Bag 02/16/2021 8:05 AM EDT Intravenous, CONTINUOUS PRN, Starting on Tue02/16/21 at 0805, Until Tue02/16/21 at 0850, Anesthesia Intra-op lidocaine (pf) (Xylocaine) (20 mg/mL) 2% Given 02/16/2021 8:09 A M EDT 50 mg injection syringe Intravenous, PRN, Starting on Tue02/16/21 at 0809, Until Tue02/16/21 at 0850, Anesthesia Intra-op, Routine ondansetron (pf) (Zofran) (2 mg/mL) inje ction Given 02/16/2021 8:24 AM EDT 4 mg Intravenous, PRN, Starting on Tue02/16/21 at 0824, Until Tue02/16/21 at 0850, Anesthesia Intra-op, Routine propofoL (Diprivan) 10 mg/mL bolus injection Given 8:09 AM EDT 200 mg (Anesthesia) Intravenous, PRN, Starting on Tue02/16/21 at 0809, Until Tue02/16/21 at 0850, Anesthesia Intra-op succinylcholine (Anectine;Quelicin) (20 mg/mL) Given 0 02/16/2021 8:09 AM EDT 60 mg injection Intravenous, PRN, Starting on Tue02/16/21 at 0809, Until Tue02/16/21 at 0850, Anesthesia Intra-op, Routine documented in this encounter Care Teams Merchandising Lead Relationship Specialty Start Date End Date Sue Sandoval MD PCP - General Family Medicine 02/06/21 [address] [place] [address] documented as of this encounter
--- OUTSIDE RECORDS SUMMARY | 2021-12-09 09:56 | XMS_ITS | Encounter Summary ---
:1955 Author Organization [facility] Address [facility] [place] [address] Care Team Providers Name Role Phone Tiffanie Kumar APRN Primary Care Provider Encounter Details Date Type Department Care Team Description 01/26/2012 Orders Only Radiology Brianna Ochoa [place] [id number] DIAGNOSTIC RADIOLOGY [phone] [place], [place] [address] (Wo rk) Social History Tobacco Use Types Packs/Day Years Used Date Never Assessed Sex Assigned at Date Recorded Not on file documented as of this encounter Plan of Treatment Not on filedocumented as of this encounter Procedures Procedure Name Priority Date/Time Associated Diagnosis Comme nts FILM LIBRARY Routine 01/26/2012 1:30 PM Results f or this STORAGE ONLY CT EDT procedure ar e in ABDOMEN AND PELVIS the resul ts section. documented in this encounter Results FILM LIBRARY- STORAGE ONLY CT ABDOMEN & PELVIS (01/26/2012 1:30 PM EDT) Specimen (Source) Anatomical Collection Method Collection Time Re ceived Time Location / / Volume Laterality 01/26/2012 1:30 PM EDT Narrative RAD - 12/04/2013 10:35 AM EDT This is a non-reportable exam. Procedure Note Nicola Kaur - 12/04/2013Formatti ng of this note might be different from the original. This is a non-reportable exam. Brianna Ochoa MD IMG FILM LIBRARY ORDERABLES Performing Organization Address City/State/ZIP Code Phon e Number [facility] [address] [facility] [place] [address] documented in this encounter Visit Diagnoses Not on filedocumented in this encounter Care Teams Tomography Technologist Relationship Specialty Start Date End Date Tiffanie Kumar APRN PCP - General 03/11/11 02/05/21 [address] [place] [address] documented as of this encounter
--- OUTSIDE RECORDS SUMMARY | 2021-12-09 09:56 | XMS_ITS | Encounter Summary ---
:1955 Author Organization [facility] [place] [address] Care Team Providers Name Role Phone Sue [...] Expiration Date Visits Requ ested Visits Authorized [id number] 1 1 Encounter Details Date Type Department Care Team Description 02/16/2021 Surgery Gastroenterology at [facility] Kevin Alvarado UPPER EUS- ENDOSCOPIC [facility] Robinson [place] [address] [facility] [phone] DR GASTROENTEROLOGY [place], [place] [address] Social History Tobacco Use Types Packs/Day Years [...] Sign Reading Time Taken Comments Blood Pressure 127/91 02/16/2021 9:10 AM EDT Pulse 78 02/16/2021 7:25 AM EDT Temperature 36.5 ??C (97.7 ??F) 02/16/2021 7:25 AM EDT Respiratory Rate 18 02/16/2021 9:10 AM EDT Oxygen Saturation 96% 02/16/2021 9:20 AM EDT Inhaled Oxygen Concentration - - Weight 59 kg (130 lb) 02/16/2021 7:25 AM EDT Height 157.5 cm (5' 2) 02/16/2021 7:25 AM EDT Body Mass Index 23.78 02/16/2021 7:25 AM EDT documented in this encounter Discharge Instructions Discharge InstructionsAnthony Randolph RN - 02/16/2021 9:02 AM EDT Endoscopic Ultrasound (Oral) and Endoscopic Retrograde Cholangiopancreatogram (ERCP): : What to Expect At Home Your Recovery After you have an endoscopic ultrasound--a test to look for problems in the stomach, liver, gallbladder, and other organs-- and an ERCP you will stay at the hospital or clinic for 1 to 2 hours. This will allow the medicine to wear off. You will be able to go home after your doctor or nurse checks to make sure you are not having any problems. You may have a sore throat for a day or two after the test. This care sheet gives you a general idea about what to expect after the test. How can you care for yourself at home? Activity ??? Rest when you feel tired. ?? You can do your normal activities when it feels okay to do so. Diet ?? Follow your doctor's directions for eating. ?? Unless your doctor has told you not to, drink plenty of fluids. This helps to replace the fluidsthat were lost during the prep. ?? Do not drink alcohol. Medicines ?? Your doctor will tell you if and when you can restart your medicines. He or she will also give you instructions about taking any new medicines. ?? If you take blood thinners, such as warfarin (Coumadin), clopidogrel (Plavix), or aspirin, be sure to talk to your doctor. He or she will tell you if and when to start taking those medicines again.Make sure that you understand exactly what your doctor wants you to do. ?? If a biopsy was done during the test, your doctor may tell you not to take aspirin or other anti-inflammatory medicines for a few days. These include ibuprofen (Advil, Motrin) and naproxen (Aleve). ?? If you have a sore throat the day after the procedure, use an cmgq-kwx-hiomnti spray to numb yourthroat. Sucking on throat lozenges and gargling with warm salt water may also help relieve your symptoms. Other instructions ?? For your safety, do not drive or operate machinery until the medicine wears off and you can think clearly. Your doctor may tell you not to drive or operate machinery until the day after your test. ?? Do not sign legal documents or make major decisions until the medicine wears off and you can think clearly. The anesthesia can make it hard for you to fully understand what you are agreeing to. Additional Information for Sedation Patients For patients who received sedation: ?? You may have received medications before and/or during your procedure which effects your judgement and reaction time. ?? Do not drive, operate machinery, drink alcoholic beverages or make important decisions for 24 hours. ?? Be careful on stairs as you may be unsteady on your feet. ?? You may eat a regular diet as tolerated. ?? Do not smoke if you are alone. ?? IV site: Slight redness or tenderness is normal, you can use a warm compress if you would like. If tenderness and/or redness increase or if foul drainage occurs, please contact your Doctor. Please call [phone] before 8pm Mon-Fri with problems, questions or concerns. If you call after 8pm or on weekends, call the Hospital at [phone] and ask to speak to the [employer]arry Supervisor personal consultant and the salmon gillnet vessel operator will contact that person for you. When should you call for help? Call [phone] anytime you think you may need emergency care. For example, call if: ?? You passed out (lost consciousness). ?? You pass maroon or bloody stools. ?? You have trouble breathing. Call your doctor now or seek immediate medical care if: ?? You have pain that does not get better after you take pain medicine. ?? You are sick to your stomach or cannot drink fluids. ?? You have new or worse belly pain. ?? You have blood in your stools. ?? You have a fever. ?? You cannot pass stools or gas. Watch closely for changes in your health, and be sure to contact your doctor if you have any problems. Where can you learn more? [facility] View your After Visit Summary and more online at [email or web address] If you would like to provide feedback about your hospital experience, please call the Office of Patient and Family Relations at . If you have received this After Visit Summary in error, please immediately return it in person to the department, or notify the [facility] Privacy Office by calling toll free at between the hours of 8AM and 5PM to arrange for our retrieval of the documents at no cost to you. Content Version: 12.2 ?? [phone] [employer]. Care instructions adapted under license by [facility]. If you have questions about a medical condition or this instruction, always ask your healthcare professional. [employer] disclaims any warranty or liability for your use of this information. documented in this encounter Medications at Time of Discharge Medication Sig Dispensed Refills Start Date End Date spironolactone (Aldactone) TAKE ONE TABLET BY 0 0 01/30/2021 25 mg Tablet MOUTH EVERY DAY metoprolol tartrate TAKE ONE TABLET BY 0 01/23/20 21 (Lopressor) 50 mg Tablet MOUTH TWICE A DAY FLUoxetine (PROzac) 40 mg TAKE ONE CAPSULE BY 0 0 01/13/2021 Capsule MOUTH EVERY DAY documented as of this encounter H&P Notes Kevin Alvarado MD - 02/16/2021 8:07 AM EDT PROBLEM LIST There is no problem list on file for this patient. HISTORY OF PRESENT ILLNESS Monse Reyes is a 65 y.o. y/o who presents for EUS/ERCP for CBD pathology. She has painless jaundice. MEDICATIONS No current facility-administered medications on file prior to encounter. Current Outpatient Medications on File Prior to Encounter Medication Sig Dispense Refill ??? spironolactone (Aldactone) 25 mg Tablet TAKE ONE TABLET BY MOUTH EVERY DAY ??? metoprolol tartrate (Lopressor) 50 mg Tablet TAKE ONE TABLET BY MOUTH TWICE A DAY ??? FLUoxetine (PROzac) 40 mg Capsule TAKE ONE CAPSULE BY MOUTH EVERY DAY PHYSICAL EXAM: Blood pressure 145/72, pulse 78, temperature 36.5 ??C (97.7 ??F), temperature source Skin, height 157.5 cm (5' 2), weight 59 kg (130 lb), SpO2 97 %. GEN: Alert, cooperative. Pleasant. In NAD MP I ASA II HEENT: No oropharyngeal lesions. Neck supple. No masses. Thyroid symmetric LUNGS: CTAB CARD: RRR without m/g/r RECENT LABS No results found for this or any previous visit (from the past 24 hour(s)). ASSESSMENT AND PLAN Monse Reyes is a 65 y.o. y/o who presents for endoscopic evaluation. Risks extensively discussedincluding bleeding, infection, reaction to anesthesia, perforation, pancreatitis (if applicable), bile duct injury (if applicable), missing a cancer (if applicable) and/or other unforseen complication.Consent signed and patient well informed of the risks of the procedure. documented in this encounter Plan of Treatment Not on filedocumented as of this encounter Procedures Procedure Name Priority Date/Time Associated Comments Diagnosis XR ERCP Routine 02/16/2021 9:17 AM Results f or this EDT procedure are i n the results section. ERCP W/REMOVAL 02/16/2021 8:05 AM 65-year-old smoker CALCULI/DEBRIS FROM EDT recently found to BILARY/PANCREATIC have elevated DUCT(S) AST/ALT (but normal T bili) on routine labs. First attributed to statin/Tylenol use, both stopped. Referred for RUQ U/S & CT with intra and extrahepatic chris dil, possible obstructive lesion (pancreatic head v ampullary). CHOLANGIOGRAM 02/16/2021 8:05 AM 65-year-old smoker EDT recently found to have elevated AST/ALT (but normal T bili) on routine labs. First attributed to statin/Tylenol use, both stopped. Referred for RUQ U/S & CT with intra and extrahepatic chris dil, possible obstructive lesion (pancreatic head v ampullary). ERCP 02/16/2021 8:05 AM 65-year-old smoker W/SPHINCTEROTOMY/PAPIL EDT recently found to LOTOMY have elevated AST/ALT (but normal T bili) on routine labs. First attributed to statin/Tylenol use, both stopped. Referred for RUQ U/S & CT with intra and extrahepatic chris dil, possible obstructive lesion (pancreatic head v ampullary). UPPER EUS- ENDOSCOPIC 02/16/2021 8:05 AM 65-year-old luis bryan ULTRASOUND EDT recently found to have elevated AST/ALT (but normal T bili) on routine labs. First attributed to statin/Tylenol use, both stopped. Referred for RUQ U/S & CT with intra and extrahepatic chris dil, possible obstructive lesion (pancreatic head v ampullary). UPPER EUS-ENDOSCOPIC Routine 02/16/2021 7:35 AM R esults for this ULTRASOUND EDT procedure are i n the results section. ERCP Routine 02/16/2021 7:33 AM Results f or this EDT procedure are i n the results section. documented in this encounter Results XR ERCP (02/16/2021 9:17 AM EDT) Specimen (Source) Anatomical Location Collection Method / Collectio n Time Received Time / Laterality Volume Narrative [facility] N[facility] - 02/16/2021 9:17 AM EDT See PACS for result report. Kevin Alvarado MD IMG FILM LIBRARY ORDERABLES Performing Organization Address City/State/ZIP Code Phon e Number [place], [place] UPPER EUS-ENDOSCOPIC ULTRASOUND (02/16/2021 7:35 AM EDT) Component Value Ref Test Analysis Performed Pathologis t Range Method Time At [facility] ENDOSCOPIC Endoscopy ULTRASOUND _ Procedure Date: 02/16/2021 7:35 AM ? Patient Name: Monse Reyes ? Date of : 1955 ? Age: 65 ? Order #: [id number] ? Instrument Name: [id number] ? Procedure: ? Upper EUS Indications: ? Abnormal abdominal/pelvic CT scan Providers: ? Kevin Alvarado MD, Paul cortes ? Helen Mars , ? Reservoir Engineering Manager Referring MD: ?Sue Sandoval MD Medicines: ? General Anesthesia Complications: ? No immediate complications. Procedure: ? Pre-Anesthesia Assessment: ? - Prior to the procedure, a H istory ? and Physical was performed, a nd ? patient medications and aller gies ? were reviewed. The patient is ? competent. The risks and bene fits of ? the procedure and the sedatio n ? options and risks were discus sed with ? the patient. All questions we re ? answered and informed consent was ? obtained. Patient identificat ion and ? proposed procedure were verif ied by ? the physician in the pre-proc edure ? area. Airway Examination: nor mal ? oropharyngeal airway and neck ? mobility. CV Examination: nor mal. ? Prophylactic Antibiotics: The patient ? does not require prophylactic ? antibiotics. Prior Anticoagul ants: ? The patient has taken no prev ious ? anticoagulant or antiplatelet agents. ? ASA Grade Assessment: II - A patient ? with mild systemic disease. A fter ? reviewing the risks and benef its, the ? patient was deemed in satisfa ctory ? condition to undergo the proc edure. ? The anesthesia plan was to us e ? general anesthesia. Immediate ly prior ? to administration of medicati ons, the ? patient was re-assessed for a dequacy ? to receive sedatives. The hea rt rate, ? respiratory rate, oxygen satu rations, ? blood pressure, adequacy of p ulmonary ? ventilation, and response to care ? were monitored throughout the ? procedure. The physical statu s of the ? patient was re-assessed after the ? procedure. ? The procedure, indications, b enefits, ? risks and alternatives were e xplained ? to the patient. Specifically ? discussed were potential ? complications including, but not ? limited to, bleeding, perfora tion, ? infection, missing a cancer, and ? adverse medication reactions. The ? Endosonoscope was introduced through ? the mouth, and advanced to e third ? part of duodenum. The ULTRASO UND ? SCOPE was introduced through the ? mouth, and advanced to the ird part ? of duodenum. The upper EUS wa s ? accomplished without difficul ty. The ? patient tolerated the procedu re well. ? Findings: ? ENDOSCOPIC FINDING: : ? The examined esophagus was endoscopically normal. ? The entire examined stomach was endoscopically normal . ? The examined duodenum was endoscopically normal. ? There was no evidence of ampullary mass. ? ENDOSONOGRAPHIC FINDING: : ? There was no sign of significant endosonographic ? abnormality in the esophagus, stomach, duodenum or ? celiac axis. ? There was no sign of significant endosonographic ? abnormality in the ampulla. Specifically, the CBD and ? PD tapered normally to the ampulla. ? The proximal CBD was dilated to 15 mm. Just proximal ? to the ampulla was a 10 x 6 mm shadowing stone. There ? was no evidence of mass or stricture. I could not ? locate the gallbladder. ? There was no sign of significant endosonographic ? abnormality in the left lobe of the liver with the ? excepion of massive ductal dilitation. ? There was no sign of significant endosonographic ? abnormality in the pancreatic head, body and tail ? with the excerption of fatty pancreatopathy. The PD ? was not dilated, ? No lymphadenopathy seen. ? Moderate Sedation: ? Not applicable - See Anesthesia documentation Impression: ?- Choledocholithiasis with large ? stone in the distal CBD and u pstream ? biliary dilitation. Recommendation: ?- Proceed with ERCP now ? Attending Participation: ? I personally performed the entire procedure. ? Kevin Alvarado MD 02/16/2021 8:25:48 AM This report has been signed electronically. Number of Addenda: 0 Note Initiated On: 02/16/2021 7:35 AM Specimen (Source) Anatomical Collection Method Collection Time Re ceived Time Location / / Volume Laterality 02/16/2021 7:35 AM EDT Sue Sandoval MD GENERAL SURGICAL ORDERABLES Performing Organization Address City/State/ZIP Code Phon e Number [facility] ERCP (02/16/2021 7:33 AM EDT) Component Value Ref Test Analysis Performed At [facility] Method Time Signature ERCP [facility] Endoscopy Procedure Date: 02/16/2021 7:33 AM ? Patient Name: Monse Reyes ? Date of : 1955 ? Age: 65 ? Order #: [id number] ? Instrument Name: [id number] ? Procedure: ? ERCP Indications: ? Evaluation and possible treatment o f ? bile duct stone(s) Providers: ? Kevin Alvarado MD, Paul cortes ? OHelen Chance , ? Reservoir Engineering Manager Referring MD: ?Sue Sandoval MD Medicines: ? General Anesthesia Complications: ? No immediate complications. Procedure: ? Pre-Anesthesia Assessment: ? - Prior to the procedure, a H istory ? and Physical was performed, a nd ? patient medications and aller gies ? were reviewed. The patient is ? competent. The risks and bene fits of ? the procedure and the sedatio n ? options and risks were discus sed with ? the patient. All questions we re ? answered and informed consent was ? obtained. Patient identificat ion and ? proposed procedure were verif ied by ? the physician in the pre-proc edure ? area. Mental Status Examinati on: ? alert and oriented. Airway ? Examination: normal oropharyn geal ? airway and neck mobility. Res piratory ? Examination: clear to auscult ation. ? CV Examination: normal. Proph ylactic ? Antibiotics: The patient does not ? require prophylactic antibiot ics. ? Prior Anticoagulants: The pat ient has ? taken no previous anticoagula nt or ? antiplatelet agents. ASA Grad e ? Assessment: II - A patient wi th mild ? systemic disease. After revie wing the ? risks and benefits, the patie nt was ? deemed in satisfactory condit ion to ? undergo the procedure. The an esthesia ? plan was to use general anest hesia. ? Immediately prior to administ ration ? of medications, the patient w as ? re-assessed for adequacy to r eceive ? sedatives. The heart rate, ? respiratory rate, oxygen satu rations, ? blood pressure, adequacy of p ulmonary ? ventilation, and response to care ? were monitored throughout the ? procedure. The physical statu s of the ? patient was re-assessed after the ? procedure. ? The procedure, indications, b enefits, ? risks and alternatives were e xplained ? to the patient. Specifically ? discussed were potential ? complications including, but not ? limited to, bleeding, perfora tion, ? infection, pancreatitis, miss ing a ? cancer, and adverse medicatio n ? reactions. The Duodenoscope w as ? introduced through the mouth, and ? advanced to the duodenum wher e it was ? used to inject contrast into and used ? to inject contrast into the b ile ? duct. The ERCP was accomplish ed ? without difficulty. The patie nt ? tolerated the procedure well. ? Findings: ? The welfare adviser film was normal. The esophagus was ? successfully intubated under direct vision. The scope ? was advanced to a normal major papilla in the ? descending duodenum without detailed examination of ? the pharynx, larynx and associated structures, and ? upper GI tract. The upper GI tract was grossly ? normal. The papilla was somewhat redundant so we used ? the SPYBITE forceps for stabilization. The bile duct ? was deeply cannulated with the short-nosed traction ? sphincterotome and a 25 Visiglide advanced to the ? intrahepatic ducts. Contrast was injected. ? Cholangiogram revealed a dilated CBD to 15 mm with ? the round filling defect seen on EUS having migrated ? proximally - indicating a stone. There was no other ? abnormality and contrast filled into a very ? diminutive cystic duct. A 15 mm biliary ? sphincterotomy was made with a sphincterotome using ? ERBE electrocautery. There was no post-sphincterotomy ? bleeding. Next the duct was swept with the 11.5 mm ? balloon and a single brown pigment stone was removed. ? Occlusion cholangiogram with the 15 mm balloon ? revealed no focal filling defects. The PD was not ? accessed. ? Moderate Sedation: ? Not applicable - See Anesthesia documentation Impression: ?- Choledocholithiasis s/p ? sphincterotomy and stone haresh kwaku Recommendation: ?- Consider outpatient CCY ? Attending Participation: ? I personally performed the entire procedure. ? Kevin Alvarado MD 02/16/2021 8:52:21 AM This report has been signed electronically. Number of Addenda: 0 Note Initiated On: 02/16/2021 7:33 AM Specimen (Source) Anatomical Collection Method Collection Time Re ceived Time Location / / Volume Laterality 02/16/2021 7:33 AM EDT Sue Sandoval MD GENERAL SURGICAL ORDERABLES Performing Organization Address City/State/ZIP Code Phon e Number [facility] documented in this encounter Visit Diagnoses Not on filedocumented in this encounter Administered Medications Inactive Administered Medications - up to 3 most recent administrations Medication Order MAR Action Action Date Dose Rate Site lactated ringers infusion New Bag 02/16/2021 7:35 AM EDT 100 mL/hr 100 mL/hr 100 mL/hr, Intravenous, CONTINUOUS, Starting on Tue02/16/21 at 0745, Until Tue02/16/21 at 1142, Endoscopy (Day of Procedure) documented in this encounter Active and Recently Administered Medications Times are shown in EDT. Continuous Medication Order 02/14/2021 02/15/2021 02/16/2021 lactated ringers infusion 0735 ( New Bag - Provider: Emili Thomas RN) 100 mL/hr, at 100 mL/hr, Intravenous, CO NTINUOUS, Starting on Tue02/16/21 at 0745, Until Tue02/16/21 at 1142, Endo (Day of Procedure) documented in this encounter Care Teams Coal Chute Worker Relationship Specialty Start Date End Date Sue Sandoval MD PCP - General Family Medicine 02/06/21 [address] [place] [address] documented as of this encounter
--- OUTSIDE RECORDS SUMMARY | 2021-12-09 09:56 | XMS_ITS | Encounter Summary ---
:1955 Author Organization [facility] [place] [address] Care Team Providers Name Role Phone Sue [...] Expiration Date Visits Requ ested Visits Authorized [id number] 1 1 Encounter Details Date Type Department Care Team Description 02/16/2021 Ancillary Procedure G[facility]enterology at [facility] [place] [address] Social History Tobacco Use Types Packs/Day [...] Name Priority Date/Time Associated Diagnosis Comme nts XR ERCP Routine 02/16/2021 9:17 AM Results f or this EDT procedure are i n the results section . documented in this encounter Results XR ERCP (02/16/2021 9:17 AM EDT) Specimen (Source) Anatomical Location Collection Method / Collectio n Time Received Time / Laterality Volume Narrative [facility] - 02/16/2021 9:17 AM EDT See PACS for result report. Kevin Alvarado MD IMG FILM LIBRARY ORDERABLES Performing Organization Address City/State/ZIP Code Phon e Number [place], [place] documented in this encounter Visit Diagnoses Not on filedocumented in this encounter Care Teams Jboss Developer Relationship Specialty Start Date End Date Sue Sandoval MD PCP - General Family Medicine 02/06/21 [address] [place] [address] documented as of this encounter
--- OUTSIDE RECORDS SUMMARY | 2021-12-09 09:56 | XMS_ITS | Encounter Summary ---
:1955 Author Organization [facility] [place] [address] Care Team Providers Name Role Phone Sue [...] Expiration Date Visits Requ ested Visits Authorized [id number] 1 1 Encounter Details Date Type Department Care Team Description 02/16/2021 Hospital Encounter Gastroenterology at [facility] Kevin Alvarado [facility] [place] [address] [place] [address] [facility] [place], [place] [address] Social History Tobacco Use Types [...] the day after the procedure, use an wxgl-zub-rntcxye spray to numb yourthroat. Sucking on throat [...] occurs, please contact your Doctor. Please call [phone] before 8pm Mon-Fri with problems, questions or concerns. If you call after 8pm or on weekends, call the Hospital at [phone] and ask to speak to the Lead Recreation Assistant customer service receptionist and the stamping machine operator will contact that person for you. When should you call for help? Call [phone] anytime you think you may need emergency [...] any problems. Where can you learn more? [facility] View your After Visit Summary and more online at [email or web address] If you would like to provide feedback about your hospital experience, please call the Office of Patient and Family Relations at . If you have received this After Visit Summary in error, please immediately return it in person to the department, or notify the [facility] Privacy Office by calling toll free at between the hours of 8AM and 5PM to arrange for our retrieval of the documents at no cost to you. Content Version: 12.2 ?? [id number] [employer]. Care instructions adapted under license by [facility]. If you have questions about a medical condition or this instruction, always ask your healthcare professional. [employer] disclaims any warranty or liability for your [...] Time Received Time / Laterality Volume Narrative [facility] - 02/16/2021 9:17 AM EDT See PACS for result report. Kevin Alvarado MD IMG FILM LIBRARY ORDERABLES Performing Organization Address City/State/ZIP Code Phon e Number [place], [place] UPPER EUS-ENDOSCOPIC ULTRASOUND (02/16/2021 7:35 AM EDT) Component Value Ref Test Analysis Performed Pathologis t Range Method Time At [facility]ATION ENDOSCOPIC Endoscopy ULTRASOUND _ Procedure Date: 02/16/2021 7:35 AM ? Patient Name: Monse Reyes ? Date of : 1955 ? Age: 65 ? Order #: [id number] ? Instrument Name: [id number] ? Procedure: ? Upper EUS Indications: ? Abnormal abdominal/pelvic CT scan Providers: ? Kevin Alvarado MD, Paul cortes ? Helen Mars , ? Human Resources Supervisor Referring MD: ?Sue Sandoval MD Medicines: ? [...] Component Value Ref Test Analysis Performed At [facility] Range Method Time Signature ERCP [facility] Endoscopy Procedure Date: 02/16/2021 7:33 AM ? Patient Name: Monse Reyes ? Date of : 1955 ? Age: 65 ? Order #: [id number] ? Instrument Name: [id number] ? Procedure: ? ERCP Indications: ? Evaluation and possible treatment o f ? bile duct stone(s) Providers: ? Kevin Alvarado MD, Paul cortes ? OHelen Chance , ? Human Resources Supervisor Referring MD: ?Sue Sandoval MD Medicines: ? [...] the procedure well. ? Findings: ? The comic book designer film was normal. The esophagus was ? [...] Procedure) documented in this encounter Care Teams Electric Knife Operator Relationship Specialty Start Date End Date Sue Sandoval MD PCP - General Family Medicine 02/06/21 [address] [place] [address] documented as of this encounter
--- OUTSIDE RECORDS SUMMARY | 2021-12-09 09:56 | XMS_ITS | Encounter Summary ---
:1955 Author Organization [facility] [place] [address] Care Team Providers Name Role Phone Tiffanie Kumar APRN Primary Care Provider Encounter Details Date Type Department Care Team Description 01/15/2021 Ancillary Procedure Radiology Library at Sue Sandoval MD [facility] [address] [place] [address] [facility] [phone] [place] [address] (Work) [phone] Social History Tobacco Use Types Packs/Day Years Used Date Never Assessed Sex Assigned at Date Recorded Not on file documented as of this encounter Plan of Treatment Not on filedocumented as of this encounter Procedures Procedure Name Priority Date/Time Associated Comments Diagnosis FILM LIBRARY STORAGE Routine 01/15/2021 12:00 AM Results for this ONLY ULTRASOUND EDT procedure ar e in STUDY the results section. documented in this encounter Results Film Library- Storage Only Ultrasound Study (01/15/2021 12:00 AM EDT) Specimen (Source) Anatomical Location Collection Method / Collectio n Time Received Time / Laterality Volume Narrative [facility] - 01/28/2021 4:07 PM EDT This exam is auto-finalizing. It's purpo se is for storage only. Sue Sandoval MD IMG FILM LIBRARY ORDERABLES Performing Organization Address City/State/ZIP Code Phon e Number [facility] [place], [place] documented in this encounter Visit Diagnoses Not on filedocumented in this encounter Care Teams Food Technology Teacher Relationship Specialty Start Date End Date Tiffanie Kumar APRN PCP - General 03/11/11 02/05/21 [address] [place], [place] [id number] documented as of this encounter
--- OUTSIDE RECORDS SUMMARY | 2021-12-09 09:56 | XMS_ITS | Clinical Summary ---
:1955 Author Organization [facility] [place] [address] Care Team Providers Name Role Phone Sue Sandoval MD Primary Care Provider Allergies No known active allergies Medications Medication Sig Dispensed Refills Start Date End Date Status spironolactone TAKE ONE TABLET 0 01/30/2021 Active (Aldactone) 25 mg Tablet BY MOUTH EVERY DAY metoprolol tartrate TAKE ONE TABLET 0 01/22/2021 Active (Lopressor) 50 mg Tablet BY MOUTH TWICE A DAY FLUoxetine (PROzac) 40 TAKE ONE CAPSULE 0 01/13/2021 Active mg Capsule BY MOUTH EVERY DAY Social History Tobacco Use Types Packs/Day Years Used Date Current Every Day Smoker Cigarettes 0.5 Smokeless Tobacco: Never Used Comments: started smoking at age 18; den ies vaping Alcohol Use Standard Drinks/Week Comments Not Currently 0 (1 standard drink = 0.6 oz pure alcoho l) Sex Assigned at Date Recorded Not on file Last Filed Vital Signs Vital Sign Reading [...] Mass Index 23.78 02/16/2021 7:25 AM EDT Plan of Treatment Health Maintenance Due Date Last Done Comments Covid-19 Vaccine (#1) 1962 Pneumococcal Vaccine: At-Risk 5-64yrs (1 - PCV) 1963 HIV screen 1975 Hepatitis C Screening 1975 Lipid Screening 1975 Tdap adult 1976 Tetanus vaccine 1976 HPV test 1987 PAP Smear 1987 Breast Cancer Share Decision Needed 1997 Colonoscopy 2002 Breast Cancer screening 2007 Zoster vaccine (1 of 2) 2007 Advance Directive 2012 Influenza (Flu) vaccine (1 of 1 - Influenza standard 01/21/2022 series) Insurance Payer Benefit Plan / Subscriber ID Effective Dates Phone Addre ss Type Group [employer] [id number] 2020-Present [address] BLUE [facility] EXCHANGE [facility] [address] Care Teams Clothing Cutter Relationship Specialty Start Date End Date Sue Sandoval MD PCP - General Family Medicine 02/06/21 [address] [place] [address]
--- OUTSIDE RECORDS SUMMARY | 2021-12-09 09:57 | XMS_ITS | Clinical Summary ---
:1955 Author Organization [facility] Address [address] [place] [address] Care Team Providers Name Role Phone Nilda Gonsales MD Primary Care Provider Social History Tobacco Use Types Packs/Day Years Used Date Never Assessed Sex Assigned at Date Recorded Not on file Plan of Treatment Health Maintenance Due Date Last Done Comments COVID-19 Vaccine (1) 1962 Hepatitis C Screen Completed 12/30/2020 Care Teams Lpn Cma Relationship Specialty Start Date End Date Nilda Gonsales MD PCP - General 03/16/11 [address] [place] [address]
--- OUTSIDE RECORDS SUMMARY | 2021-12-09 09:57 | XMS_ITS | Encounter Summary ---
:[address] [facility] Address [address] [place] [address] Care Team Providers Name Role Phone Nilda Gonsales MD Primary Care Provider Encounter Details Date Type Department Care Team Description 11/21/2019 Lab Requisition [facility] Sue Sandoval nter for general adult medical examination without abnormal findings; Pathology & CMD Encounter for screening for malignant ne oplasm of cervix; Laboratory Medicine [facility] Encounter for gynecological examination (general) (routine) without abnormal findings - [place], [place] [address] [facility] [address] [place], [place] [id number] Social History Tobacco Use Types Packs/Day Years Used Date Never Assessed Sex Assigned at Date Recorded Not on file documented as of this encounter Plan of Treatment Not on filedocumented as of this encounter Procedures Procedure Name Priority Date/Time Associated Diagnosis Comme nts PAP TEST Today 11/19/2019 4:00 EDT Encounter for general Results for this adult medical procedure are in examination without the resu lts abnormal finding s section. Encounter for screening for malignant neoplasm of cervix Encounter for gynecological examination (general) (routine) without abnormal findings documented in this encounter Results PAP TEST (11/19/2019 4:00 EDT) Specimens A. Cervix and/or [facility] Endocervix , [place] ThinPrep Imaging LABORATORY System with Manual SERVICES Evaluation Specimen Adequacy Unsatisfactory for [facility] MEDICAL evaluation - CENTER insufficient numbers LABORATORY of squamous SERVICES epithelial cells (less than 10% of expected cellularity). General Unsatisfactory [facility] CENTER LABORATORY SERVICES Attestation . [facility] MEDICAL Electronically CENTER signed by REMA Leung CT(ASC P) SERVICES on 11/29/2019 at 0907 Educational Comments Unsatisfactory - Specimen pr ocessed and examined, but unsatisfactory for evaluation of epithelial abnormality. Recommend Pap test in 2-4 months as stated in ASCCP's 2012 Updated Guidelines. HPV testing [facility] will not be performed due to the potential for false n egative results. [place] LABORATORY SERVICES Clinical History NONE [facility] Scanned Images [facility] SERVICES Specimen Pap Test - Cervix and/or Endocervix Performing Organization Address City/State/[facility] Code Phon e Number [facility] [address] [place] [address] SERVICES documented in this encounter Visit Diagnoses Diagnosis Encounter for general adult medical exam ination without abnormal findings Unspecified general medical examination Encounter for screening for malignant ne oplasm of cervix Screening for malignant neoplasm of the cervix Encounter for gynecological examination (general) (routine) without abnormal findings documented in this encounter Care Teams Unit Nurse Relationship Specialty Start Date End Date Nilda Gonsales MD PCP - General 03/16/11 [address] [place] [address] documented as of this encounter
--- OUTSIDE RECORDS SUMMARY | 2021-12-09 09:57 | XMS_ITS | Encounter Summary ---
:1955 Author Organization [facility] Address [address] [place] [address] Care Team Providers Name Role Phone Nilda Gonsales MD Primary Care Provider Encounter Details Date Type Department Care Team Description 01/27/2021 Lab Requisition [facility] Outr Resulting Lab, Pathology & Laboratory Provider [facility] [address] [place] [address] Social History Tobacco Use Types Packs/Day Years Used Date Never Assessed Sex Assigned at Date Recorded Not on file documented as of this encounter Plan of Treatment Not on filedocumented as of this encounter Procedures Procedure Name Priority Date/Time Associated Diagnosis Comme nts IGA Routine 01/27/2021 15:24 Results for this EDT procedure are i n the results section. ANTI NUCLEAR AB Routine 01/27/2021 15:24 Results for this (JANICE), IFA EDT procedure are i n the results section. IGG Routine 01/27/2021 15:24 Results for this EDT procedure are i n the results section. documented in this encounter Results (ABNORMAL) ANTI NUCLEAR AB (JANICE), IFA (01/27/2021 15:24 EDT) JANICE Interpretation Positive (A) Negative [facility] Comment: CENTER LABORATORY For titers greater than or e qual to 1:160 (except the centromere and nucleolar patterns) it is recommended that specific follow-up autoantibody testing ??(such as for dsDNA and Extractable Nuclear Antig SERVICES ens) be performed on all diffuse and/or speckled patterns NOTE: For add-on testing dsD NA is stable for 7 days refrigerated while Extractable Nuclear Antigens are only stable for 48 hours refrigerated. JANICE Titer and Pattern 1:[address] LABORATORY SERVICES Specimen Blood - Venous blood (substance) Narrative [facility] LABORATORY SERVICES - 01/29/2021 14:11 EDT Results were obtained with the ITN NOV A Lite HEp-2 JANICE Kit by indirect immunofluorescence. Performing Organization Address City/State/ZIP Code Phon e Number [facility] [address] [place] [address] SERVICES IGA (01/27/2021 15:24 EDT) Pathologist Sig nature IgA 272 85 - 499 mg/dL [facility] Specimen Blood - Venous blood (substance) Performing Organization Address City/[facility]/ZIP Code Phon e Number [facility] [address] [place] [address] SERVICES IGG (01/27/2021 15:24 EDT) Pathologist Sig nature IgG 1,467 610-1,616 mg/dL [facility] Specimen Blood - Venous blood (substance) Performing Organization Address City/[facility]/ZIP Code Phon e Number [facility] [address] [place] [address] SERVICES documented in this encounter Visit Diagnoses Not on filedocumented in this encounter Care Teams Assembler Tester Relationship Specialty Start Date End Date Nilda Gonsales MD PCP - General 03/16/11 [address] [place] [phone] documented as of this encounter
--- OUTSIDE RECORDS SUMMARY | 2021-12-09 09:57 | XMS_ITS | Encounter Summary ---
:1955 Author Organization [facility] Address [address] [place] [address] Care Team Providers Name Role Phone Unknown, Provider Primary Care Provider Encounter Details Date Type Department Care Team Description 03/12/2011 Results Only [facility] Samara Mensah, DO [phone] [facility] [place], [place] [phone] (Wo rk) Social History Tobacco Use Types Packs/Day Years Used Date Never Assessed Sex Assigned at Date Recorded Not on file documented as of this encounter Plan of Treatment Not on filedocumented as of this encounter Procedures Procedure Name Priority Date/Time Associated Diagnosis Comme nts SURGICAL PATHOLOGY Routine 03/12/2011 0:00 EDT Re sults for this procedure are i n the results section. documented in this encounter Results SURGICAL PATHOLOGY (03/12/2011 0:00 EDT) Pathology Report: SURGICAL PATHOLOGY REPORT BRYANT A ZAYNABMARKELL Reports generated via electronic interface contain galen ginal data; LAB however they are lacking the format of the original re port. Caution should be taken when reading/interpreting unfo rmatted reports. Name: ? MORENO FLORES ? Accession #: ? [id number] ? : ? 1955 (Age: 55) ??F ? Collect Date: ? 03/12/2011 ? Location: ? [facility] ? Receive Date: ? 011 ? Provider: SAMARA MENSAH DO Copy to: TANA VOGEL MD ? Final Pathologic Diagnosis: A. ?Liver, wedge biopsy: 1. ?Benign mesothelial-lined cyst. ?? 2. ? Cauterized liver tissue with mild steatosis. B. ?Colon, sigmoid, segmental resection: 1. ?Acute diverticulitis with fistula tra ct formation. 2. ? Diverticulosis. 3. ? Surgical resection margins viable. ?? Document reviewed and electronically signed by: JD DIETZ MD Report ??Date: 03/16/2011 15:04 By the signature above, the attending physician certif ies that he/she has personally conducted a gross and/or microscopic examin ation of the described specimens and rendered or confirmed the above diagnosi s. Specimen(s) Received: A. ?Liver wedge (#1) B. ? Sigmoid colon (#2) Clinical History: ? Colovesical fistula and left hydronephrosis Gross Description: ? Received in formalin labelled Moreno Flores and 1 ??liver wedge is a 0.7 x 0.5 x 0.2 cm firm henriquez tissue. ??The trisected sp ecimen is submitted entirely as (A). Received in formalin labelled Moreno Flores and 2 ??sigmoid colon is an unoriented 17 cm in length by 4.0 cm in diameter opened segment of colon with one stapled and one unstaple d margin. ??The serosa is dusky, and hemorrhagi, with focal walker-white exudate. ?? The mucosa is henriquez, velvety, and has focal submucosal edema. ??The muscularis is markedly thic kened up to 1.5 cm centrally and shows several diverticula. ??Sever al ill-defined areas of apparent perforation/fistula formation into the surrounding pericolic tissue with surrounding fibrosis and fat necrosis are present. ?? Semi Driver sections of the specimen are submitted as follows: BLOCK MILLER B1 ?Unstapled surgical margin ?? B2 ?Stapled surgical margin B3, B4 ?Full th ickness central bowel, bisected, demonstrating probable fistula (blue inked placed on ? contiguous cut surfaces) ? B5-B8 ?Additional sections of colo n (Benny Sigala)/kmm ?? End of Report Specimen Performing Organization Address City/State/ZIP Code Phon e Number [facility] [address] [place] [address] SERVICES [facility] [address] [place] [address] documented in this encounter Visit Diagnoses Not on filedocumented in this encounter Care Teams Bi Developer Relationship Specialty Start Date End Date Unknown, Provider, PCP - General 03/13/11 03/15/11 documented as of this encounter
--- OUTSIDE RECORDS SUMMARY | 2021-12-09 09:57 | XMS_ITS | Encounter Summary ---
:1955 Author Organization [facility] Address [address] [place] [address] Care Team Providers Name Role Phone Nilda Gonsales MD Primary Care Provider Encounter Details Date Type Department Care Team Description 12/31/2020 Lab Requisition [facility] Outr Resulting Lab, Pathology & Laboratory Provider [facility] [address] [place] [address] Social History Tobacco Use Types Packs/Day Years Used Date Never Assessed Sex Assigned at Date Recorded Not on file documented as of this encounter Plan of Treatment Not on filedocumented as of this encounter Procedures Procedure Name Priority Date/Time Associated Diagnosis Comme nts HEPATITIS C AB W Routine 12/30/2020 15:35 Results for this REFLEX TO HCV RNA EDT procedure are in BY PCR the results section. HEPATITIS B SURFACE Routine 12/30/2020 15:35 Resu lts for this ANTIBODY EDT procedure are i n the results section. documented in this encounter Results HEPATITIS B SURFACE ANTIBODY (12/30/2020 15:35 EDT) Hep B Surface Ab, <3.1 [address] [facility] Quantitative Comment: mIU/mL [facility] Reference Range for Hep B Surface Ab, Quant: SERVICES Positive: >= 10.0 mIU/mL Negative: ??< 10.0 mIU/mL Patient is presumed to not be immune to infection with Hepatitis B Virus. Hep B Surface Ab, Negative See Note [facility] Qualitative Comment: [facility] Reference Range for Hep B Surface Ab, Qual: SERVICES Unvaccinated: ??Negative Vaccinated: ??Positive Specimen Blood - Venous blood (substance) Performing Organization Address City/State/ZIP Code Phon e Number [facility] [address] [place] [address] SERVICES HEPATITIS C AB W REFLEX TO HCV RNA BY PCR (12/30/2020 15:35 EDT) Pathologist Sig nature Hep C Antibody Negative Negative [facility] SERVICES Specimen Blood - Venous blood (substance) Performing Organization Address City/State/ZIP Code Phon e Number [facility] [address] [place] [address] SERVICES documented in this encounter Visit Diagnoses Not on filedocumented in this encounter Care Teams Postdoctoral Scholar Relationship Specialty Start Date End Date Nilda Gonsales MD PCP - General 03/16/11 [address] [place] [address] documented as of this encounter
--- OUTSIDE RECORDS SUMMARY | 2021-12-09 09:57 | XMS_ITS | Encounter Summary ---
:1955 Author Organization [facility] Address [address] [place] [address] Care Team Providers Name Role Phone Nilda Gonsales MD Primary Care Provider Encounter Details Date Type Department Care Team Description 01/27/2021 Results Only [facility] Víctor Agarwal MD Lab - [place] [address] [place] [address] [place] [address] (Wo rk) Social History Tobacco Use Types Packs/Day Years Used Date Never Assessed Sex Assigned at Date Recorded Not on file documented as of this encounter Plan of Treatment Not on filedocumented as of this encounter Procedures Procedure Name Priority Date/Time Associated Comments Diagnosis HEPATIC FUNCTION PANEL Routine 01/27/2021 15:32 R esults for this (ALB,ALK EDT procedure are i n PHOS,ALT,AST,DBIL,TOT the re sults SHAE,TOT PROT) section. INR Routine 01/27/2021 15:24 Results for this EDT procedure are i n the results section. ANTI SMOOTH MUSCLE AB - Routine 01/27/2021 15:24 Results for this [facility] EDT procedure are i n the results section. CELIAC DISEASE Routine 01/27/2021 15:24 Results f or this COMPREHENSIVE CASCADE EDT proced ure are in the results section. IBC Routine 01/27/2021 15:24 Results for this EDT procedure are i n the results section. MITOCHONDRIAL IGG Routine 01/27/2021 15:24 Result s for this ANTIBODY EDT procedure are i n the results section. TISSUE TRANSGLUTAMINASE Routine 01/27/2021 15:24 Results for this AB EDT procedure are i n the results section. IGA Routine 01/27/2021 15:24 Results for this EDT procedure are i n the results section. PROTIME Routine 01/27/2021 15:24 Results for this EDT procedure are i n the results section. ANTI NUCLEAR AB (JANICE), Routine 01/27/2021 15:24 R esults for this IFA EDT procedure are i n the results section. TSH Routine 01/27/2021 15:24 Results for this EDT procedure are i n the results section. IRON Routine 01/27/2021 15:24 Results for this EDT procedure are i n the results section. IGG Routine 01/27/2021 15:24 Results for this EDT procedure are i n the results section. FERRITIN Routine 01/27/2021 15:24 Results for this EDT procedure are i n the results section. documented in this encounter Results (ABNORMAL) HEPATIC FUNCTION PANEL (ALB,ALK PHOS,ALT,AST,DBIL,TOT SHAE,TOT PROT) (01/27/2021 15:32 EDT) Pathologist Sig nature ALBUMIN - [facility] 4.5 3.4 - 4.9 g/dL [facility] ALKALINE PHOSPHATASE - 313 (H) 38 - 126 U/L [facility] ME D [facility] BILIRUBIN DIRECT CALC 0.1 0.0 - 0.4 mg/dL [facility] BILIRUBIN TOTAL 0.3 0.2 - 1.3 mg/dL [facility] Unconjugated Bilirubin 0.2 0.0 - 1.1 mg/dL [facility] TOTAL PROTEIN - [facility] 7.9 6.2 - 8.2 gm/dL [facility] SGOT/AST - [facility] 62 (H) 14 - 36 U/L [facility] SGPT/ALT - [facility] 102 (H) 0 - 35 U/L [facility] Specimen Narrative [facility] - 021 16:36 EDT Does PT Have a Latex Allergy? NO Performing Organization Address City/State/ZIP Code Phon e Number [facility] [address] [place] [address] TISSUE TRANSGLUTAMINASE AB (01/27/2021 15:24 EDT) Tissue Transglutaminase <1.2 () U/mL [facility] Antibody IGA Comment: [facility] REFERENCE VALUE ------ <4.0 (Negative) Test Performed by: [facility] [place] [address] Health And Wellness Director: Alejandro Mcdonough M.D. Ph.D.; CLIA# [id number] Specimen Narrative [facility] - 14:48 EDT Does PT Have a Latex Allergy? NO Performing Organization Address [facility] Phon e Number [facility] [address] [place] [address] ANTI SMOOTH MUSCLE AB - [facility] (01/27/2021 15:24 EDT) Pathologist [facility] ANTI SMOOTH Negative Negative [facility] MUSCLE AB - [facility] Comment: [facility] Negative: No further testing will be performed ADDITIONAL INFORMATION ------ This test was developed and its performance characteri stics determined by [facility] in a manner consistent with CLIA requirements. This test has not been cleared or approv ed by the U.S. Food and Drug Administration. Test Performed by: [facility] [place] [address] Health And Wellness Director: Alejandro Mcdonough M.D. Ph.D.; CLIA# [id number] Specimen Narrative [facility] - 14:48 EDT Does PT Have a Latex Allergy? NO Performing Organization Address [facility] Phon e Number [facility] [address] [place] [address] IGG (01/27/2021 15:24 EDT) Pathologist [facility] nature IgG 1,467 610-1,616 mg/dL [facility] Comment: [facility] Test performed or referred by The [address] [address] Specimen Narrative [facility] - 14:48 EDT Does PT Have a Latex Allergy? NO Performing Organization Address City/[facility]/ZIP Code Phon e Number [facility] [address] [place] [address] IGA (01/27/2021 15:24 EDT) Pathologist Sig nature IgA 272 85 - 499 mg/dL [facility] Comment: [facility] Test performed or referred by The [address] [address] Specimen Narrative [facility] - 14:48 EDT Does PT Have a Latex Allergy? NO Performing Organization Address [facility] Phon e Number [facility] [address] [place] [address] CELIAC DISEASE COMPREHENSIVE CASCADE (01/27/2021 15:24 EDT) IgA 290 61 - 356 [facility] mg/dL [facility] Celiac Disease SEE BELOW () [facility] Interpretation Comment: [facility] Negative serology. Celiac disease unlikely. However, approximately 10% of patients with celiac disease are seronegative. Also, patients who are already adhering to a gluten-free diet may be seronegative. If celiac diseas e is highly clinically suspected, consider HLA-DQ typing. Test Performed by: [facility] [place] [address] Health And Wellness Director: Alejandro Mcdonough M.D. Ph.D.; CLIA# [id number] Specimen Narrative [facility] - 14:48 EDT Does PT Have a Latex Allergy? NO Performing Organization Address [facility] Phon e Number [facility] [address] [place] [address] MITOCHONDRIAL IGG ANTIBODY (01/27/2021 15:24 EDT) ANTI MITOCHONDRIAL AB <0.1 () U [facility] - [facility] Comment: [facility] REFERENCE VALUE ------ <0.1 (Negative) Test Performed by: [facility] [place] [address] Health And Wellness Director: Alejandro Mcdonough M.D. Ph.D.; CLIA# [id number] Specimen Narrative [facility] - 14:48 EDT Does PT Have a Latex Allergy? NO Performing Organization Address [facility] Code Phon e Number [facility] [address] [place] [address] (ABNORMAL) ANTI NUCLEAR AB (JANICE), IFA (01/27/2021 15:24 EDT) Pathologist [facility] JANICE Interpretation Positive (A) Negative [facility] Comment: [facility] For titers greater than or equal to 1:160 (except the centromere and nucleolar patterns) it is recommended t hat specific follow-up autoantibody testing ??(such as for dsDNA and Extractable Nuclear Antigens) be performed on all diffuse and/or speckled patterns NOTE: For add-on testing dsDNA is stable for 7 days refrigerated while Extractable Nuclear Antigens are on ly stable for 48 hours refrigerated. JANICE Titer and Pattern 1:320 [address] () [facility] 1 Comment: [facility] Results were obtained with the [employer] NOVA Lite HEp-2 A NA Kit by indirect immunofluorescence. Test performed or referred by The [address] [address] Specimen Narrative [facility] - 14:48 EDT Does PT Have a Latex Allergy? NO Performing Organization Address [facility] Code Phon e Number [facility] [address] [place] [address] IBC (01/27/2021 15:24 EDT) Pathologist Sig nature IRON BINDING CAPACITY 385 261 - 462 ug/dL [facility] Specimen Narrative [facility] - 17:15 EDT Does PT Have a Latex Allergy? NO Performing Organization Address [facility]/ZIP Code Phon e Number [facility] [address] [place] [address] FERRITIN (01/27/2021 15:24 EDT) Pathologist [facility] FERRITIN - [facility] 31 11.1 - 264.0 [facility] Comment: ng/mL [facility] The results of this assay can be falsely lowered due t o the consumption of Biotin. Specimen Narrative [facility] - 17:15 EDT Does PT Have a Latex Allergy? NO Performing Organization Address [facility]/ZIP Code Phon e Number [facility] [address] [place] [address] IRON (01/27/2021 15:24 EDT) Pathologist Sig [facility] SERUM IRON - [facility] 60 37 - 170 ug/dL [facility] Specimen Narrative [facility] - 17:15 EDT Does PT Have a Latex Allergy? NO Performing Organization Address City/[facility]/ZIP Code Phon e Number [facility] [address] [place] [address] TSH (01/27/2021 15:24 EDT) THYROID STIM 1.78 0.46 - 4.68 [facility] Comment: uIU/ml [facility] The results of this assay can be falsely lowered due t o the consumption of Biotin. Specimen Narrative [facility] - 17:05 EDT Does PT Have a Latex Allergy? NO Performing Organization Address City/[facility] Code Phon e Number [facility] [address] [place] [address] PROTIME (01/27/2021 15:24 EDT) Pathologist Sig [facility] PROTHROMBIN TIME - 11.7 10.3 - 13.4 [facility] Specimen Narrative [facility] - 16:14 EDT Does PT Have a Latex Allergy? NO Performing Organization Address [facility]/ZIP Code Phon e Number [facility] [address] [place] [address] INR - [facility] (01/27/2021 15:24 EDT) Pathologist Sig [facility] INR - [facility] 1.0 0.9 - 1.1 [facility] Comment: [facility] Moderate Intensity Coumadin INR = 2.0-3.0 Adjustments in anticoagulant therapy dose should be ba sed upon the INR and NOT the Protime. Specimen Narrative [facility] - 16:14 EDT Does PT Have a Latex Allergy? NO Performing Organization Address City/[facility]/ZIP Code Phon e Number [facility] [address] [place] [address] documented in this encounter Visit Diagnoses Not on filedocumented in this encounter Care Teams Branch Sales Manager Relationship Specialty Start Date End Date Nilda Gonsales MD PCP - General 03/16/11 [address] [place] [address] documented as of this encounter
--- OUTSIDE RECORDS SUMMARY | 2021-12-09 09:57 | XMS_ITS | Encounter Summary ---
:1955 Author Organization [facility] Address [address] [place] [address] Care Team Providers Name Role Phone Nilda Gonsales MD Primary Care Provider Encounter Details Date Type Department Care Team Description 06/25/2020 Lab Requisition [facility] Outr Resulting Lab, Pathology & Laboratory Provider [facility] [address], [place] [address] Social History Tobacco Use Types Packs/Day Years Used Date Never Assessed Sex Assigned at Date Recorded Not on file documented as of this encounter Plan of Treatment Not on filedocumented as of this encounter Procedures Procedure Name Priority Date/Time Associated Diagnosis Comme nts COVID-19 TEST [facility] Today 06/25/2020 7:00 EST LAB PCR COVID-19 TESTING Routine 06/25/2020 7:00 EST Resu lts for this procedure are i n the results section. documented in this encounter Results COVID-19 TEST [facility] PCR (06/25/2020 7:00 EST) Specimen Swab - Entire nasopharynx (body structur e) Performing Organization Address City/State/ZIP Code Phon e Number [facility] [address] [place] [address] SERVICES COVID-19 TESTING (06/25/2020 7:00 EST) COVID-19 rt-PCR Negative Negative [facility] Result Comment: [facility] This test has not been FDA c leared or approved. This test has been authorized by FDA under an EUA for use by authorized laboratories. This test has been authorized only for detection of nucleic acid fro SERVICES m 2019-nCoV, not for any oth er viruses or pathogens. This test is only authorized for the duration of the declaration that circumstances exist justifying the authorization of emergency use of in vitro d iagnostic tests for detectio n and/or diagnosis of 2019-nCoV under section 564(b)(1) of Act, 21 U.S.C ?? 360bbb-3(b) (1), unless the authorization is terminated or revoked sooner. Negative results do not prec lude 2019-nCoV infection and should not be used as the sole basis for treatment or other patient management decisions. Negative results must be combined with clinical observa tions, patient history, and epidemiological informatio n. This test was developed and its performance characteristics determined by [facility]. It has not been cleared or approved by the US Food and Drug Administration. FDA does not require this test to go through premarket FDA review. This t est is used for clinical purposes. It should not be regarded as investigational or for research. This laboratory is certified under the Clinical Laboratory Improvement Amendm ents (CLIA) as qualified to perform high complexity clinical laboratory testing. This test is based on the CD C COVID-19 Emergency Use Authorization (EUA) assay, with minor modification as defined by the FDA Performed on the [employer] 7 Flex RT-PCR System. Performing Lab [facility] Lab [facility] SERVICES Specimen Swab Performing Organization Address City/State/ZIP Code Phon e Number [facility] [address] [place] [address] SERVICES documented in this encounter Visit Diagnoses Not on filedocumented in this encounter Care Teams Contact Center Professional Relationship Specialty Start Date End Date Nilda Gonsales MD PCP - General 03/16/11 [address] [place] [address] documented as of this encounter
--- OUTSIDE RECORDS SUMMARY | 2021-12-09 09:57 | XMS_ITS | Encounter Summary ---
:1955 Author Organization [facility] Address [address] [place] [address] Care Team Providers Name Role Phone Nilda Gonsales MD Primary Care Provider Encounter Details Date Type Department Care Team Description 10/13/2011 Results Only [facility] Samaar Lim DO [phone] [facility] [facility] [address] (Wo rk) Social History Tobacco Use Types Packs/Day Years Used Date Never Assessed Sex Assigned at Date Recorded Not on file documented as of this encounter Plan of Treatment Not on filedocumented as of this encounter Procedures Procedure Name Priority Date/Time Associated Diagnosis Comme nts SURGICAL PATHOLOGY Routine 10/13/2011 0:00 EDT Re sults for this procedure are i n the results section. documented in this encounter Results SURGICAL PATHOLOGY (10/13/2011 0:00 EDT) Pathology Report: SURGICAL PATHOLOGY REPORT [facility] B[facility]ROWS Reports generated via electronic interface contain galen ginal data; LAB however they are lacking the format of the original re port. Caution should be taken when reading/interpreting unfo rmatted reports. Name: ? MORENO FLORES ? Accession #: ? [id number] ? : ? 1955 (Age: 56) ??F ? Collect Date: ? 10/13/2011 ? Location: ? [facility] ? Receive Date: ? 012 ? Provider: SAMARA AGUILAR DO Copy to: NILDA GONSALES MD ? Final Pathologic Diagnosis: ? Tissue from ostomy site, resection: 1. ?Colocutaneous anastomotic tissue with : ? - Chronic inflammation. - Fibrosis. Document reviewed and electronically signed by: Ronna Keenan MD Report ??Date: 10/15/2011 15:35 By the signature above, the attending physician certif ies that he/she has personally conducted a gross and/or microscopic examin ation of the described specimens and rendered or confirmed the above diagnosi s. Specimen(s) Received: ? Ostomy site Clinical History: ? Reversal of colostomy Gross Description: ? Received in formalin labelled Flores, Moreno and ostomy site is a short segment of bowel which measu res 2.5 cm in length by 2.0 cm in diameter, received partially incised, which has a stapled proximal surgical margin. ??The distal end has a 2.5 x 1.0 cm roughly e lliptical shaped ring of white skin, which ranges in width from 0.4 cm to 0.2 cm. ??There is a small amount of mucosa slightly bulging from the center of the skin, which is granular and henriquez-brown. ??This distal end of bowel surrounded by skin is received with black silk sutures within it. ??The bowel mucosa is light henriquez, velvety, and folded and the bowel wall ranges in thickness from 0.6 cm to 0.1 cm. ??There is a moderate amount of light yellow, lobular adipose tissue attached to the external surfac e of the bowel. ??The serosa, otherwise, is slight ly rough and henriquez-white. ??Dry Pan Feeder sections of the specimen are submitted as follows: BLOCK MILLER A1 ?Section adjacent to stapled proximal surgical margin A2 ?Perpendicular sections of distal end, two sections (Benny Sigala)/ljn End of Report Specimen Performing Organization Address City/State/ZIP Code Phon e Number [facility] [address] [place] [address] SERVICES [facility] [address] [place] [address] documented in this encounter Visit Diagnoses Not on filedocumented in this encounter Care Teams Cashier Tube Room Relationship Specialty Start Date End Date Nilda Gonsales MD PCP - General 03/16/11 [address] [place] [phone] documented as of this encounter
--- OUTSIDE RECORDS SUMMARY | 2021-12-09 09:57 | XMS_ITS | Encounter Summary ---
:1955 Author Organization [facility] Address [address] [place] [address] Care Team Providers Name Role Phone Nilda Gonsales MD Primary Care Provider Encounter Details Date Type Department Care Team Description 01/19/2012 Results Only [facility]- Samara Lim DO [phone] [facility] [place], [place] [id number] (Wo rk) Social History Tobacco Use Types Packs/Day Years Used Date Never Assessed Sex Assigned at Date Recorded Not on file documented as of this encounter Plan of Treatment Not on filedocumented as of this encounter Procedures Procedure Name Priority Date/Time Associated Diagnosis Comme nts SURGICAL PATHOLOGY Routine 01/19/2012 0:00 EDT Re sults for this procedure are i n the results section. documented in this encounter Results SURGICAL PATHOLOGY (01/19/2012 0:00 EDT) Pathology Report: SURGICAL PATHOLOGY REPORT MANNY BURROWS Reports generated via electronic interface contain galen ginal data; LAB however they are lacking the format of the original re port. Caution should be taken when reading/interpreting unfo rmatted reports. Name: ? MORENO FLORES ? Accession #: ? [id number] ? : ? 1955 (Age: 56) ??F ? Collect Date: ? 01/19/2012 ? Location: ? [facility] ? Receive Date: ? 012 ? Provider: SAMARA AGUILAR DO Copy to: NILDA GONSALES MD ? Final Pathologic Diagnosis: ? Small intestine, segmental resection: 1. ?Severe acut e and chronic serositis with granulation tissue. ??See comment. 2. ? Focal ischemic changes. ?? Comment: ? The severe inflammatory response predominantly involves the serosa. However, there are focal areas of abscess and fistula tract formations identified in the mucosa and musculars propria. Althou gh the inflammation is present at some of the end sections of the small bowel segments, definitive surgical margin status can not be ascertained, because the proximity of the individual bowel segments is unknown. Clinical correlation is recommended. (Dr. Hoover)/lynn Document reviewed and electronically signed by: JE OSEGUERA MD Report ??Date: 01/25/2012 14:37 By the signature above, the attending physician certif ies that he/she has personally conducted a gross and/or microscopic examin ation of the described specimens and rendered or confirmed the above diagnosi s. Specimen(s) Received: ? Small intestine portion Clinical History: ? Bowel obstruction Gross Description: ? Received in formalin labelled Flores, Moreno and portion of small intestine are three portion s of bowel. ??The largest piece measures 12.0 cm in length by 8.0 cm in greatest circumference. ??The two small pieces measure 7.5 cm in length by 4.[address] and 9.0 cm in length by 4.0 cm in diameter. ??The 7.0 cm fragment is stapled a t both ends and has a wall disruption measuring 2.5 cm in the mid portion that i s stuffed with gauze. ??The 9.7 cm fragment does not have stapled ends, but has m ultiple disruptions in its bowel wall. ??The largest specimen has a disrupted area approximat nataly 2.5 cm from the end margin and 9.0 cm from the opposing end mar gin. ??The largest fragment has a henriquez-pink, focally hyperemic and hemorrhagic se michelle with a small amount of attached yellow adipose tissue. ??The 7.0 cm fragment of bowel h as henriquez-pink rough, focally hemorrhagic serosa with the previously described disruption measur ing 2.0 cm. ??The uninvolved mucosa is henriquez-brown, slightly folded and unremarkable. ??The 9.0 cm fragment has a mostly disrupted serosa and the margins are not readily identifiable. ??The 9.0 cm f ragmented serosa is not well-defined and is henriquez-pink with a moderate amount of at tached yellow adipose tissue. ??The uninvolved mucosa is henriquez-brown, edematous and folded. ? Represent ative sections of the specimen are submitted as follows: BLOCK MILLER A1 ?End margin (largest fragment) A2, A3 ?Opposing end, largest piece A4, A5 ?Sections of disrupted area (large st fragment) A6 ?Uninvolved mucosa (largest fragment) A7 ?End margin (7.0 cm fragment) A8 ?Opposing end margin (7.0 cm fragment) A9, A10 ?Sections of disrupted area (7.0 cm fragment) A11 ?Uninvolved mucosa (7.0 cm fragment) A12 ?End margin (9.0 cm fragment) A13 ?Opposing end margin (9.0 cm fragment ) A14-A16 ? Sections of disrupted wall (9.0 cm fragm ent) A17 ?Uninvolved mucosa (9.0 cm fragment (Dr. Luna)/[facility] End of Report Specimen Performing Organization Address City/State/ZIP Code Phon e Number [facility] [address] [place] [address] [facility] [address] [place] [address] documented in this encounter Visit Diagnoses Not on filedocumented in this encounter Care Teams Ward Nurse Relationship Specialty Start Date End Date Nilda Gonsales MD PCP - General 03/16/11 [address] [place] [address] documented as of this encounter
[2021-12-09] MEDS: Omnipaque 350 MG/ML 100 ML BTL IJ (12:20)
== END ==
PROVIDERS: PCP Family Medicine; Visit Provider Family Medicine
DX: R10.9 Unspecified abdominal pain (principal); R93.3 Abnormal findings on diagnostic imaging of other parts of digestive tract
CPT/HCPCS: 74177; J3490

== ENCOUNTER 2021-12-14 15:50 | Outpatient (REF) | payer BC, SELFPAY ==
[2021-12-14 16:22] LABS: Abs Immature Grans 0.16 10^3/uL (0.0-0.06); Absolute Eosinophil Count 0.11 10^3/uL (0.0-0.7); Absolute Lymphocyte Count 2.68 10^3/uL (1.2-3.4); Absolute Monocyte Count 1.22 10^3/uL (0.1-0.8); Basophils % 0.9; Eosinophils % 0.6; HCT 50.2 % (36.0-46.0); HGB 16.3 g/dL (11.2-15.7); Immature Grans % 0.9; Lymphocytes % 14.3; MCH 27.2 pg (27.0-33.0); MCHC 32.5 % (32.0-36.0); MCV 84 fL (80-95); Monocytes % 6.5; Neutrophils % 76.8; RBC 5.99 10^6/uL (3.93-5.22); RDW 13.2 % (11.7-14.6); RDW-SD 40.5 fL; WBC 18.76 10^3/uL (4.4-10.8)
[2021-12-14 16:28] LABS: Absolute Basophil Count 0.17 10^3/uL (0.0-0.2); Absolute Neutrophil Count 14.41 10^3/uL (1.2-6.7)
[2021-12-14 16:53] LABS: Platelet Count 709 10^3/uL (130-400)
[2021-12-14 17:08] LABS: ALT 19 U/L (14-59); AST 14 U/L (15-37); Alkaline Phosphatase 76 U/L (46-116); Anion Gap 14.7 mmol/L (3-11); BUN 19 mg/dL (7-18); Bilirubin, Total 0.3 mg/dL (0.2-1.0); CO2 28.3 mmol/L (21.0-32.0); CREATININE 1.1 mg/dL (0.55-1.02); Calcium 9.5 mg/dL (8.5-10.1); Chloride 90 mmol/L (98-107); Estimated GFR 50.01 (mL/min/1.73m2); Glucose 122 mg/dL (74-106); Potassium 4.3 mmol/L (3.5-5.1); Sodium 133 mmol/L (136-145); Total Protein 7.3 g/dL (6.4-8.2)
[2021-12-14 18:22] LABS: C Diff PCR Negative (Negative)
[2021-12-15 13:27] LABS: Campylobacter PCR Negative (Negative); Salmonella PCR Negative (Negative); Shiga Toxin PCR Negative (Negative); Shigella/Enteroinvasive Ecoli Negative (Negative)
== END 2021-12-14 15:51 | disposition home or self-care (01) ==
LOC: NCHCN 15:50
PROVIDERS: PCP Family Medicine; Visit Provider Family Medicine
DX: R19.7 Diarrhea, unspecified (principal); R10.9 Unspecified abdominal pain
CPT/HCPCS: 80053; 87329; 87493; 87505; 83630; 85025; 87177

== ENCOUNTER 2021-12-14 16:16 | Emergency (ER) | payer BC, SELFPAY ==
[2021-12-14 16:19] VITALS: BP 162/79; PULSE 109; RESP 17; TEMP 36.8; O2SAT 98
[2021-12-14 17:55] VITALS: BP 142/86; PULSE 107; TEMP 35.6; O2SAT 97
--- NOTE | 2021-12-14 18:27 | W.ED.GENAD ---
Discharge Plan Disposition Patient Disposition: HOME Condition: Improving Discharge Details Clinical Impression: Colitis, Vomiting Primary Care Provider: Sue Sandoval ED Provider: Elise Lazo Home Meds and New Rx's Prescriptions: New amoxicillin-pot clavulanate 875-125 mg tablet 1 tab PO BID 10 Days Qty: 20 0RF metoclopramide HCl [Reglan] 5 mg tablet 5 mg PO QACHS PRN (Reason: nausea and vomiting) Qty: 10 0RF No Action multivitamin Tablet 1 tab PO DAILY spironolactone 25 mg tablet 25 mg PO DAILY fluoxetine 40 mg capsule 40 mg PO DAILY metoprolol tartrate 50 mg tablet 50 mg PO BID Discharge Instructions Instructions: Acute Nausea and Vomiting (ED), Colitis (ED) Additional Instructions: Please do not take the Cipro or Flagyl anymore. Please change to the Augmentin which you have been given the first dose here in the department. Potassium was slightly low please increase foods that are high in potassium such as spinach the next few days. May also consider taking a potassium supplement for the next few days.. Take the nausea medication as instructed. Follow up with primary care provider in 3-5 days. Return to ED sooner if any worsening or concerns. Increase oral fluids. Referrals: Sue Sandoval [Primary Care Provider] - 3 days Discharge Data Discharge Date/Time-TO BE ENTERED AT DEPARTURE: 12/14/21 23:14 Medical Decision Making 66-year-old female with past medical history of hypertension, hyperlipidemia, anxiety, pancreatic lesion, vitamin D deficiency and tobacco use with a past family presents with chief complaint of Nausea vomiting diarrhea which began . Patient has a colostomy from a very extensive diverticulitis. She was recently diagnosed with colitis and was placed on Flagyl and Cipro. Labs ordered including lipase, Zofran 4 mg IV, liter normal saline. Patient had CT abdomen pelvis 5 days ago so imaging was not reordered. Will consider changing the antibiotic to Augmentin. CBC shows leukocytosis white blood cell count of 19.37, hemoglobin 16. Hematocrit 47.0, patient has had leukocytosis in the past since high as 21, platelet count is 673, absolute neutrophils 15.07, sodium 138 potassium 3.1 chloride 89 anion gap 12.5 BUN 20 creatinine 1.2 GFR is 45, glucose 139 magnesium 1.5 AST. She albumin 2.7 lipase is 199. Patient given 40mg p.o. potassium liquid, Reglan, liter of fluid 19 which patient tolerated. No emesis while here in the department. She was given 15 mg Toradol for some abdominal discomfort. Patient was administered 5 to 6 hours. Currently. She does plan to be discharged home prior to discharge. Improved. She is to Augmentin twice daily x10 days. Instructed to follow-up with PCP discussed strict return instructions. This text was generated using [employer] system, please disregard any oddities of phrase or misspellings. Medical Records Medical records reviewed: Yes I reviewed the patient's medical records. Lab Data Lab results reviewed: Yes I reviewed the patient's lab results. Labs: Laboratory Tests Range/Units 12/14/21 12/14/21 12/14/21 18:49 18:49 18:49 WBC (4.4-10.8) 10^3/uL 19.37 H RBC (3.93-5.22) 10^6/uL 5.91 H Hgb (11.2-15.7) g/dL 16.1 H Hct (36.0-46.0) % 47.0 H MCV (80-95) fL 80 D MCH (27.0-33.0) pg 27.2 MCHC (32.0-36.0) % 34.3 RDW (11.7-14.6) % 13.1 Plt Count (130-400) 10^3/uL 673 H MPV (8.0-11.0) fL 9.7 Immature Gran % 0.9 Neutrophils % 77.8 Lymphocytes % 12.7 Monocytes % 7.1 Eosinophils % 0.6 Basophils % 0.9 Nucleated RBC % (0.0-0.3) % 0.0 Absolute Neutrophils (1.2-6.7) 10^3/uL 15.07 H Absolute Lymphocytes (1.2-3.4) 10^3/uL 2.46 Absolute Monocytes (0.1-0.8) 10^3/uL 1.38 H Absolute Eosinophils (0.0-0.7) 10^3/uL 0.12 Absolute Basophils (0.0-0.2) 10^3/uL 0.17 Sodium (136-145) mmol/L 130 L Potassium (3.5-5.1) mmol/L 3.1 L D Chloride (98-107) mmol/L 89 L Carbon Dioxide (21.0-32.0) mmol/L 28.5 Anion Gap (3-11) mmol/L 12.5 H BUN (7-18) mg/dL 20 H Creatinine (0.55-1.02) mg/dL 1.2 H Estimated GFR/1.73 m2 (mL/min/1.73m2) 45.23 Glucose (74-106) mg/dL 139 H Calcium (8.5-10.1) mg/dL 9.4 Magnesium (1.8-2.4) mg/dL 1.5 L Total Bilirubin (0.2-1.0) mg/dL 0.4 AST (15-37) U/L 13 L ALT (14-59) U/L 15 Alkaline Phosphatase (46-116) U/L 72 Total Protein (6.4-8.2) g/dL 8.0 Albumin (3.4-5.0) g/dL 2.7 L Lipase (73-393) U/L 199 HPI General Mode of arrival: ambulatory. Date/Time Provider Initiated Documentation: 12/14/21 16:26. Limitations to Documentation: no limitations. Information obtained by: patient, RN notes reviewed and old records reviewed. HPI Narrative: 66-year-old female with past medical history of hypertension, hyperlipidemia, anxiety, pancreatic lesion, vitamin D deficiency and tobacco use with a past family presents with chief complaint of Nausea vomiting diarrhea which began . Patient has a colostomy from a very extensive diverticulitis. She was recently diagnosed with colitis and was placed on Flagyl and Cipro. She reports that her she last took the antibiotic last night. She is also being given nausea medication for which she reports is not working. She states that she has been able to keep down water daily. She is slightly tachycardic on arrival at 107. Abdomen is soft nontender. She did have some hematochezia even blood-tinged stool output which she reports has been ongoing for months. She recently had a CT abdomen pelvis with contrast 5 days ago. Related Data Home Medications Medication Instructions Recorded Confirmed fluoxetine 40 mg capsule 40 mg PO DAILY 07/16/21 12/14/21 metoprolol tartrate 50 mg tablet 50 mg PO BID 02/24/22 07/25/22 multivitamin 1 tab PO DAILY 07/16/21 12/14/21 spironolactone 25 mg tablet 25 mg PO DAILY 07/16/21 12/14/21 amoxicillin 875 mg-potassium 1 tab PO BID 10 days #20 tabs 12/14/21 clavulanate 125 mg tablet metoclopramide HCl 5 mg tablet 5 mg PO QACHS PRN nausea and 12/14/21 (Reglan) vomiting #10 tabs Previous Rx's Medication Instructions Recorded amoxicillin 875 mg-potassium 1 tab PO BID 10 days #20 tabs 12/14/21 clavulanate 125 mg tablet metoclopramide HCl 5 mg tablet 5 mg PO QACHS PRN nausea and 12/14/21 (Reglan) vomiting #10 tabs Allergies Allergy/AdvReac Type Severity Reaction Status Date / Time No Known Allergies Allergy Verified 12/14/21 16:28 General Stated Complaint: Abd Prob EDWARD: 3 Review of Systems All systems reviewed & are unremarkable except as noted in HPI and below Gastrointestinal Gastrointestinal: Reports as per HPI, Denies abdominal pain, Reports hematochezia, Reports diarrhea, Reports nausea and Reports vomiting PFSH All Active Problems (Updated 12/14/21 @ 22:30 by Elise Lazo NP) Colitis (Acute) Vomiting (Acute) Bilateral carotid bruits (Acute) Elevated LFTs (Acute) Cholelithiasis (Acute) Colostomy infection (Acute) Medical History Anxiety disorder Hyperlipidemia Hypertension Pancreatic lesion Shingles Tobacco use Vitamin D deficiency Social History Smoking/Tobacco Use Status: Current-Occasional Tobacco Type: cigarettes Smoking risk assessment performed?: Yes Alcohol Intake: never Drug use: Never Substance use type: does not use Do you feel safe at home: Yes Do you feel safe in your relationship?: Yes Exam Narrative Exam Narrative: Constitutional: Alert and oriented x3. Appears stated age. Normal body habitus. Head: Normocephalic, no trauma. Eyes: Pupils PERRL, Red reflex noted, EOM's intact. Eyelids symmetrical without lesions, discharge, or swelling. Chest: RRR, Normal S1, S2, distal pulses intact. Resp: Lungs clear to auscultation bilaterally, no wheezes, rales, or rhonchi. Abdomen: Soft, non-distended, midline vertical healed scar noted, colostomy bag in place to left lower quadrant. A stoma. There is red tinged soft diarrhea stool noted in the bag. Musculoskeletal: Normal gait, 5/5 strength to all four extremities. Skin: No suspicious rashes or lesions. Capillary refill less than 2 sec. Neurologic: Cranial nerves II-XII intact. Alert and oriented x 3. Motor: No deficits noted. Sensory: Intact bilaterally all 4 extremities. Hematologic/Lymphatic: No ecchymosis, no lymphadenopathy. Course Vital Signs Vital signs: Vital Signs Temperature 36.8 C 12/14/21 16:19 Pulse 109 H 12/14/21 16:19 Respiratory Rate 17 12/14/21 16:19 Blood Pressure 162/79 H 12/14/21 16:19 Pulse Oximetry 98 12/14/21 16:19 Temperature 35.6 C L 12/14/21 17:55 Temperature Source Tympanic 12/14/21 17:55 Pulse 107 H 12/14/21 17:55 Respiratory Rate 17 12/14/21 16:19 Respiratory Effort Non-Labored 12/14/21 16:25 Blood Pressure 142/86 H 12/14/21 17:55 Blood Pressure Position Sitting 12/14/21 16:19 Pulse Oximetry 97 12/14/21 17:55 Oxygen Delivery Method Room Air 12/14/21 17:55 Oxygen Flow Rate 0 12/14/21 17:55 Pain Level 2 12/14/21 16:25
[2021-12-14 19:04] LABS: Abs Immature Grans 0.18 10^3/uL (0.0-0.06); Absolute Basophil Count 0.17 10^3/uL (0.0-0.2); Absolute Eosinophil Count 0.12 10^3/uL (0.0-0.7); Absolute Lymphocyte Count 2.46 10^3/uL (1.2-3.4); Absolute Monocyte Count 1.38 10^3/uL (0.1-0.8); Absolute Neutrophil Count 15.07 10^3/uL (1.2-6.7); Basophils % 0.9; Eosinophils % 0.6; HGB 16.1 g/dL (11.2-15.7); Immature Grans % 0.9; Lymphocytes % 12.7; MCH 27.2 pg (27.0-33.0); MCHC 34.3 % (32.0-36.0); MCV 80 fL (80-95); MPV 9.7 fL (8.0-11.0); Monocytes % 7.1; Neutrophils % 77.8; RBC 5.91 10^6/uL (3.93-5.22); RDW 13.1 % (11.7-14.6); RDW-SD 37.3 fL; WBC 19.37 10^3/uL (4.4-10.8)
[2021-12-14 19:05] LABS: Platelet Count 673 10^3/uL (130-400)
[2021-12-14 19:13] LABS: Lipase 199 U/L (73-393); Magnesium 1.5 mg/dL (1.8-2.4)
[2021-12-14] MEDS: Normal Saline 1,000 ML 1000 ML IV (19:15)
[2021-12-14] MEDS: FAMOTIDINE 20 MG in Normal Saline 100 ML 400 MG IVPB (19:15)
[2021-12-14] MEDS: Ondansetron 4 MG/2 ML VIAL IVP (19:16)
[2021-12-14 19:18] LABS: ALT 15 U/L (14-59); AST 13 U/L (15-37); Albumin 2.7 g/dL (3.4-5.0); Alkaline Phosphatase 72 U/L (46-116); Anion Gap 12.5 mmol/L (3-11); BUN 20 mg/dL (7-18); Bilirubin, Total 0.4 mg/dL (0.2-1.0); CO2 28.5 mmol/L (21.0-32.0); CREATININE 1.2 mg/dL (0.55-1.02); Calcium 9.4 mg/dL (8.5-10.1); Chloride 89 mmol/L (98-107); Estimated GFR 45.23 (mL/min/1.73m2); Glucose 139 mg/dL (74-106); Potassium 3.1 mmol/L (3.5-5.1); Sodium 130 mmol/L (136-145)
[2021-12-14] MEDS: MAGNESIUM SULFATE 1 GM/100 ML BAG IVPB (20:23)
[2021-12-14] MEDS: Potassium Chloride Liquid 20 MEQ PKT 40 MEQ PO (20:24)
[2021-12-14] MEDS: Metoclopramide 10 MG/2 ML VIAL IVP (21:58)
[2021-12-14 22:00] VITALS: BP 163/99; PULSE 96; RESP 16; O2SAT 97
[2021-12-14] MEDS: Amoxicillin 875/Clav. 125 TAB PO (22:00)
[2021-12-14 22:46] VITALS: BP 157/63; PULSE 73; RESP 16; O2SAT 97
[2021-12-14] MEDS: Ketorolac 15 MG/ML VIAL IVP (22:47)
== END 2021-12-14 23:14 | disposition home or self-care (01) ==
PROVIDERS: Emergency Provider Registered Nurse Emergency; PCP Family Medicine
DX: K52.9 Noninfective gastroenteritis and colitis, unspecified (principal); D72.829 Elevated white blood cell count, unspecified; I10 Essential (primary) hypertension; F17.210 Nicotine dependence, cigarettes, uncomplicated; Z93.3 Colostomy status
CPT/HCPCS: 36415; 80053; 83690; 96361; 96374; 96375; 99284; 83735; 85025; J1885; J2405; J2765; J3475

== ENCOUNTER 2021-12-27 10:47 | Inpatient (IN) | payer BC, SELFPAY ==
[2021-12-27] VITALS (48 sets, daily range): BP systolic 95–120; BP diastolic 47–69; PULSE 73–85; RESP 16–18; TEMP 36.1–37.4; O2SAT 92–98
--- NOTE | 2021-12-27 11:27 | W.ED.GENAD ---
Discharge Plan Disposition Patient Disposition: [facility] IN[facility]IENT Discharge Details Chief Complaint: Abd Prob Clinical Impression: Colitis Primary Care Provider: Sue Sandoval ED Provider: Oscar Urena Home Meds and New Rx's Prescriptions: No Action multivitamin Tablet 1 tab PO DAILY spironolactone 25 mg tablet 25 mg PO DAILY fluoxetine 40 mg capsule 40 mg PO DAILY metoprolol tartrate 50 mg tablet 50 mg PO BID metronidazole 500 mg tablet 500 mg PO BID ciprofloxacin HCl 500 mg tablet 500 mg PO BID ondansetron 4 mg tablet,disintegrating 4 mg PO Q6H atorvastatin 40 mg tablet 40 mg PO QHS metoclopramide HCl [Reglan] 5 mg tablet 5 mg PO QACHS PRN (Reason: nausea and vomiting) Qty: 10 0RF Medical Decision Making The patient with a known pancolitis with elevated white count. Antibiotics were ordered. I recommended the patient be admitted when she initially refused. Dr. Westbrook will be in the emergency department and he was scheduled to see the patient tomorrow in the office. He was consulted. Following his consult, the patient was amenable to admission. Screening COVID test prior to admission revealed the patient is COVID-positive. Patient admitted for pancolitis with IV antibiotics and hydration. Also COVID-positive. No respiratory symptoms HPI General Date/Time Provider Initiated Documentation: 12/27/21 11:26. HPI Narrative: 66-year-old lady presented to the emergency room for evaluation of persistent abdominal pain. On December 07 she sought medical attention with her PCP recurrent abdominal pain. At that time she was having yellowish stools with blood and mucus in her colostomy. She was placed on the dual antibiotic coverage which she did not tolerate and then presented to the emergency department a few days later. This time her antibiotic was changed to what I believe is Augmentin which she tolerated well for 7 days. During the antibiotic course her stools did not change. Following the antibiotic course however the pain recurred. She states that she has right lower quadrant pain intermittently. The stools persist to be yellowish with blood and mucus. She has had no fevers no chills. Her nausea has been under control. She endorses a 20 pound loss in the past 4 to 5 weeks. No dysuria no frequency no hematuria Related Data Home Medications Medication Instructions Recorded Confirmed fluoxetine 40 mg capsule 40 mg PO DAILY 07/16/21 12/27/21 metoprolol tartrate 50 mg tablet 50 mg PO BID 07/16/21 12/27/21 multivitamin 1 tab PO DAILY 07/16/21 12/27/21 spironolactone 25 mg tablet 25 mg PO DAILY 07/16/21 12/27/21 metoclopramide HCl 5 mg tablet 5 mg PO QACHS PRN nausea and 12/14/21 12/27/21 (Reglan) vomiting #10 tabs atorvastatin 40 mg tablet 40 mg PO QHS 12/24/21 ciprofloxacin HCl 500 mg tablet 500 mg PO BID 12/24/21 12/27/21 metronidazole 500 mg tablet 500 mg PO BID 12/24/21 12/27/21 ondansetron 4 mg disintegrating 4 mg PO Q6H 12/24/21 12/27/21 tablet Previous Rx's Medication Instructions Recorded metoclopramide HCl 5 mg tablet 5 mg PO QACHS PRN nausea and 12/14/21 (Reglan) vomiting #10 tabs Allergies Allergy/AdvReac Type Severity Reaction Status Date / Time No Known Allergies Allergy Verified 12/14/21 16:28 General Stated Complaint: Abd Prob EDWARD: 3 Review of Systems Narrative: Constitutional negative for fever and chills. Positive for malaise and fatigue. HEENT negative Cardiovascular no chest pain no palpitations Respiratory no cough no shortness of breath GI see HPI see HPI MSK no myalgias or arthralgias Neuro intermittent headaches. No focal weakness no paresthesias Skin no rashes Endo see HPI Psych positive anxiety PFSH All Active Problems (Updated 12/27/21 @ 17:42 by Oscar Urena MD) Colitis (Acute) Vomiting (Acute) Bilateral carotid bruits (Acute) Elevated LFTs (Acute) Cholelithiasis (Acute) Colostomy infection (Acute) Medical History (Updated 12/27/21 @ 17:42 by Oscar Urena MD) Anxiety disorder Hyperlipidemia Hypertension Pancreatic lesion Shingles Tobacco use Vitamin D deficiency Surgical History (Updated 12/24/21 @ 06:34 by Emili Raymond RN) H/O colectomy Social History Smoking/Tobacco Use Status: Current-Occasional Tobacco Type: cigarettes Smoking risk assessment performed?: Yes Alcohol Intake: never Drug use: Never Substance use type: does not use Do you feel safe at home: Yes Do you feel safe in your relationship?: Yes Exam Narrative Exam Narrative: Awake alert [place] x3 calm mild distress, pleasant and cooperative PERRLA EOMI MMM anicteric Supple neck no JVD Chest EXTR palpitation bilaterally Heart is regular rhythm and rate no murmurs Abdomen soft diffuse discomfort with palpation no guarding no rebound colostomy bag intact Back normal MSK full range of motion upper and lower extremities no edema lower extremities Neuro grossly intact Psych no mood and affect Course Vital Signs Vital signs: Vital Signs Temperature 36.9 C 12/27/21 10:57 Pulse 83 12/27/21 10:57 Respiratory Rate 18 12/27/21 10:57 Blood Pressure 108/65 12/27/21 10:57 Pulse Oximetry 98 12/27/21 10:57 Temperature 36.9 C 12/27/21 10:57 Temperature Source Temporal Artery Scan 12/27/21 10:57 Pulse 83 12/27/21 10:57 Respiratory Rate 18 12/27/21 10:57 Blood Pressure 108/65 12/27/21 10:57 Blood Pressure Position Sitting 12/27/21 10:57 Pulse Oximetry 98 12/27/21 10:57 Oxygen Delivery Method Room Air 12/27/21 10:57 Oxygen Flow Rate 0 12/27/21 10:57 Pain Level 8 12/27/21 10:57
--- NOTE | 2021-12-27 11:30 | DI.CT_ITS ---
Exam(s) CT ABDOMEN PELVIS W EXAM: CT ABDOMEN PELVIS W CLINICAL HISTORY: Right lower quadrant pain. TECHNIQUE: Imaging Protocol: Axial computed tomography images with coronal and sagittal reformatted images were created and reviewed CONTRAST MATERIAL: Intravenous: Omnipaque 350 Contrast volume:80 ml Oral: yes COMPARISON: CT CT ABDOMEN PELVIS W from 12/09/2021 FINDINGS: ABDOMEN: Lung Bases: Normal where visualized. Liver: Normal density. Fat near falciform ligament. No measurable mass. Gallbladder and biliary tract: Gallbladder contracted no radiodense calculus or dilation. Pancreas: Normal density, no abnormal calcifications or inflammatory process. Spleen: Normal. Kidneys: Normal size, contour and axis. No radiodense stones or obstructive uropathy. No masses seen. Small cysts. Adrenal glands: No masses seen. Abdominal Aorta: Abdominal portion non-dilated. Soft tissues: Left lower quadrant colostomy. PELVIS: Bladder: Nearly empty.. No calculi.No focal mass. Bowel: Marked wall thickening of the colon consistent with colitis. Inflammation at right lower quad rant small bowel anastomosis. Appendix normal. Peritoneal cavity: No ascites bor localized collection. Bones: Within normal limits for age. Reproductive organs: Fluid density tubular right adnexal lesion may represent hydrosalpinx. This leticia ears stable from prior.. Lymph nodes: Unremarkable. Impression: Persistent pancolitis. Left lower quadrant ostomy. Question of inflammation at the right lower quadr ant small bowel anastomosis. RADIATION DOSE DELIVERED: 733.29mGy.cm Total DLP DATA REPOSITORY: All CT scans at this facility are submitted to the National Radiology Data Registry (NRDR) Dose Index Registry (DIR) with the [employer] (ACR). RADIATION OPTIMIZATION: All CT scans at this facility use at least one of these dose optimization te chniques: automated exposure control; mA and/or kV adjustment per patient size (includes targeted exa ms where dose is matched to clinical indication); or iterative reconstruction.
[2021-12-27] MEDS: Lactated Ringers 1,000 ML 1000 ML IV (11:44)
[2021-12-27] MEDS: Ondansetron 4 MG/2 ML VIAL IVP (11:45)
[2021-12-27 11:50] LABS: HCT 39.2 % (36.0-46.0); HGB 12.7 g/dL (11.2-15.7); MCHC 32.4 % (32.0-36.0); MCV 83 fL (80-95); MPV 8.5 fL (8.0-11.0); RBC 4.71 10^6/uL (3.93-5.22); RDW 13.3 % (11.7-14.6); RDW-SD 40.5 fL; WBC 11.68 10^3/uL (4.4-10.8)
[2021-12-27 12:01] LABS: ALT 16 U/L (14-59); AST 9 U/L (15-37); Alkaline Phosphatase 61 U/L (46-116); Anion Gap 6.4 mmol/L (3-11); BUN 9 mg/dL (7-18); Bilirubin, Total 0.3 mg/dL (0.2-1.0); CO2 30.6 mmol/L (21.0-32.0); CREATININE 0.9 mg/dL (0.55-1.02); Calcium 8.8 mg/dL (8.5-10.1); Chloride 101 mmol/L (98-107); Glucose 123 mg/dL (74-106); Magnesium 1.6 mg/dL (1.8-2.4); Potassium 3.8 mmol/L (3.5-5.1); Sodium 138 mmol/L (136-145); Total Protein 6.9 g/dL (6.4-8.2)
[2021-12-27 12:07] LABS: Absolute Lymphocyte Count 3.39 10^3/uL (1.2-3.4); Absolute Monocyte Count 1.05 10^3/uL (0.1-0.8); Absolute Neutrophil Count 6.54 10^3/uL (1.2-6.7); Atypical Lymphocytes % 3; Bands % 4; Diff Comment Manual Differential; Platelet Count 748 10^3/uL (130-400); RBC Morphology Normal
[2021-12-27] MEDS: MAGNESIUM SULFATE 1 GM/100 ML BAG 100 GM (12:39)
[2021-12-27 12:53] LABS: Bilirubin Negative (Negative); Blood Moderate (Negative); Clarity Clear (Clear); Glucose Negative (Negative); Ketones Negative (Negative); Leukocyte Esterase Moderate (Negative); Nitrite Negative (Negative); Urobilinogen 0.2 EU/dL (Up TO 0.2)
[2021-12-27 13:04] LABS: Bacteria Few HPF (Negative); Crystals Negative HPF (Negative); Epithelial Cells Few HPF (Negative); Mucus Negative (Negative)
[2021-12-27 13:05] LABS: C & S Indicated? Yes; Casts Negative LPF (Negative)
[2021-12-27] MEDS: Ketorolac 15 MG/ML VIAL (13:46)
[2021-12-27] MEDS: Omnipaque 350 MG/ML 100 ML BTL IJ (15:08)
[2021-12-27] MEDS: Normal Saline Flush 10 ML SYR IVP ×2 (15:09→20:54)
[2021-12-27] MEDS: Breeza Beverage 473 ML BTL 940 ML PO (15:10)
[2021-12-27] MEDS: Gastrografin 120 ML BTL 25 ML PO (15:11)
--- NOTE | 2021-12-27 15:35 | DI.VRAD_ITS ---
PROCEDURE INFORMATION: Exam: CT Abdomen And Pelvis With Contrast Exam date and time: 12/27/2021 1:22 PM Age: 66 years old Clinical indication: Other: Right lower quadrant pain TECHNIQUE: Imaging protocol: Computed tomography of the abdomen and pelvis with contrast. Contrast material: OMNIPAQUE 350; Contrast volume: 80 ml; Contrast route: INTRAVENOUS (IV); Other contrast: Oral, gastrografin, 25; COMPARISON: CT ABDOMEN PELVIS W 12/09/2021 12:05 PM FINDINGS: Stable diffuse hepatic steatosis. Stable 7 mm right hepatic lobe lesion, likely a small hemangioma or cyst. Stable fatty infiltration at the level of the falciform ligament. Stable slightly nodular hepatic contour, raising concern for underlying hepatocellular disease. Stable contracted gallbladder. No biliary ductal dilation. Normal pancreas, spleen, and adrenal glands. Stable bilateral simple renal cysts, benign. Kidneys and ureters otherwise normal. Contracted urinary bladder difficult to evaluate. Stable serpentine like structure in the right adnexa, favoring a small stable right hydrosalpinx versus complex cyst. This can be correlated with nonemergent ultrasound. Visualized reproductive organs otherwise unremarkable. Stable Mati pouch. Stable left lower quadrant colostomy. Diffuse wall thickening and pericolonic fat stranding throughout the colon. Mild wall thickening to the enteroenteric anastomosis in the right lower quadrant. No other segmental bowel wall thickening. No bowel obstruction. No free fluid, fluid collections, or pneumoperitoneum. No adenopathy. Mild calcific arterial disease without acute vascular pathology portal venous system patent No acute body wall soft tissue findings. Atelectasis in the bilateral lung bases no acute skeletal abnormality or aggressive osseous lesion. IMPRESSION: 1. Severe infectious/inflammatory pancolitis. 2. Focal enteritis suspected at the enteroenteric anastomosis in the right lower quadrant. 3. No bowel obstruction. Dictated and Authenticated by: Cuong Mancia MD. Ordering:KAREEN Moore MD
[2021-12-27] MEDS: AMPICILLIN/SULBACTAM 3 GM in Normal Saline 100 ML IVPB (16:01)
[2021-12-27] MEDS: oxyCODONE 5 mg/Acetaminophen 325 mg TAB 2 TAB PO (16:01)
[2021-12-27 16:52] LABS: Source Nasal/Nares
[2021-12-27 17:34] LABS: COVID-19 PCR Positive (Negative)
[2021-12-27 20:48] LABS: ALT 14 U/L (14-59); AST 10 U/L (15-37); Albumin 1.9 g/dL (3.4-5.0); Alkaline Phosphatase 59 U/L (46-116); BUN 7 mg/dL (7-18); Bilirubin, Total 0.2 mg/dL (0.2-1.0); Calcium 8.5 mg/dL (8.5-10.1); Chloride 98 mmol/L (98-107); Estimated GFR 55.82 (mL/min/1.73m2); Glucose 141 mg/dL (74-106); Potassium 3.2 mmol/L (3.5-5.1); Sodium 136 mmol/L (136-145); Total Protein 6.4 g/dL (6.4-8.2)
[2021-12-27] MEDS: MORPHine 2 MG/ML SYR IVP (20:53)
[2021-12-27] MEDS: CIPROFLOXACIN 200 MG/100 ML BAG 100 MG IVPB (20:53)
[2021-12-27] MEDS: Enoxaparin 40 MG/0.4 ML SYR SC (20:54)
--- NOTE | 2021-12-27 21:17 | HPE_ITS ---
Date of service: 12/27/21 Time of Service: 16:00 Assessment and Plan Assessment and plan (1) Colitis: Status: Acute Assessment and plan: We will start intravenous ciprofloxacin and Flagyl after sending off stool studies. Certainly, with recent antibiotic exposure, C. difficile colitis remains a possibility here. Although going through her entire history, I do wonder if Crohn's colitis is a more unifying diagnosis. If she does not have a favorable response to the antibiotics over the next day or so, the may be a dose of steroids to help suppress some of the inflammation will be useful. History of Present Illness History of Present Illness Chief Complaint: abdominal pain Narrative: Monse is a 66-year-old woman with a past medical history that is significant for a laparotomy for a was presumed to be perforated diverticulitis. She was treated with a Arceo's operation. This occurred in 2010. She made a nice recovery, and efforts were made to reverse her in 2011, however, that was complicated and she was left with a diverting ostomy. Eventually, she was discharged home and has done pretty well through the years with minimal gastrointestinal complaints. She has had several episodes of peristomal complications that seem to be ulcerative, and perhaps related to excess granulation tissue around the area. Most recently, around the middle of November, she began experiencing a change in the character of her ostomy output. She went from twice daily formed stools to several episodes of loose in stools and uncontrolled diarrhea. During the subsequent weeks, she started to develop some abdominal discomfort. She was treated with an antibiotic regimen as an outpatient that she did not tolerate very well. She developed some anorexia and fatigue in the setting of her ongoing diarrhea that has been associated with an unintentional 5 to 10 pound weight loss. She was actually scheduled to see me in the office tomorrow afternoon, but had increasing abdominal discomfort, and therefore came to the emergency department. Currently, she is feeling better and has had an improvement in her abdominal discomfort. She is very depressed about the diarrhea and the chronicity of her abdominal pain. She does report a relatively recent history of a COVID in fection, and she seems to associate her abdominal complaints with the recovery from that infection. Review of Systems Constitutional Constitutional: Reports anorexia, Reports fatigue, Denies fever(s), Reports l ethargy, Reports malaise, Reports poor appetite and Reports weight loss Eyes Eyes: Denies change in vision ENT Ears, Nose, Mouth, and Throat: Reports dry mouth, Denies otalgia and Denies neck pain Cardiovascular Cardiovascular: Denies chest pain, Denies leg edema and Denies dyspnea Respiratory Respiratory: Denies chest congestion, Denies cough and Denies dyspnea Gastrointestinal Gastrointestinal: Reports abdominal pain, Denies melena, Denies hematochezia, Reports change in stool character, Reports cramping, Reports diarrhea, Reports nausea and Denies vomiting Musculoskeletal Musculoskeletal: Denies abnormal gait, Denies myalgias, Reports atrophy and Denies neck pain Neurologic Neurologic: Denies abnormal movements, Denies abnormal gait and Reports confusion Psychiatric Psychiatric: Reports confusion, Reports depression and Denies panic attacks Endocrine Endocrine: Reports fatigue Hematologic/Lymphatic Hematologic/Lymphatic: Denies easy bleeding and Denies easy bruising Allergic/Immunologic Allergic/Immunologic: Denies urticaria PFSH All Active Problems Colitis (Acute) Vomiting (Acute) Bilateral carotid bruits (Acute) Elevated LFTs (Acute) Cholelithiasis (Acute) Colostomy infection (Acute) Medical History Anxiety disorder Hyperlipidemia Hypertension Pancreatic lesion Shingles Tobacco use Vitamin D deficiency Surgical History H/O colectomy Social History Smoking/Tobacco Use Status: Current-Occasional Tobacco Type: cigarettes Smoking risk assessment performed?: Yes Alcohol Intake: never Drug use: Never Substance use type: does not use Do you feel safe at home: Yes Do you feel safe in your relationship?: Yes Meds Allergies and Home Medications Allergies Allergy/AdvReac Type Severity Reaction Status Date / Time No Known Allergies Allergy Verified 12/14/21 16:28 Home Medications Medication Instructions Recorded Confirmed Type fluoxetine 40 mg capsule 40 mg PO DAILY 07/16/21 12/27/21 History metoprolol tartrate 50 mg tablet 50 mg PO BID 07/16/21 12/27/21 History multivitamin 1 tab PO DAILY 07/16/21 12/27/21 History spironolactone 25 mg tablet 25 mg PO DAILY 07/16/21 12/27/21 History metoclopramide HCl 5 mg tablet 5 mg PO QACHS PRN nausea and 12/14/21 12/27/21 Rx (Reglan) vomiting #10 tabs atorvastatin 40 mg tablet 40 mg PO QHS 12/24/21 History ciprofloxacin HCl 500 mg tablet 500 mg PO BID 12/24/21 12/27/21 History metronidazole 500 mg tablet 500 mg PO BID 12/24/21 12/27/21 History ondansetron 4 mg disintegrating 4 mg PO Q6H 12/24/21 12/27/21 History tablet Exam Const General: cooperative, anxious, not diaphoretic and ill appearing Nutritional Appearance: thin and underweight Orientation: alert, awake and oriented x3 Eyes General: appearance normal, both eyes and all related structures Neck Neck: normal visual inspection, no lymphadenopathy, lymphadenopathy and no JVD Thyroid: thyroid normal Lymphatic: no lymphadenopathy noted Resp Effort & Inspection: normal respiratory effort Auscultation: clear to auscultation bilaterally Cardio Jugular venous pressure: no JVD Rate: regular rate Heart Sounds: S1 abnormal and S2 normal GI Inspection: non-distended Palpation: soft, guarding, no hernias, not rigid and tender Auscultation: normal bowel sounds Skin General skin exam: no rashes or lesions noted Neuro General: patient alert, patient awake and patient oriented x3 Cognition: normal cognition Speech: speech normal Motor: muscle tone normal throughout Extrem General: normal to inspection and full ROM Right lower extremity: no edema Left lower extremity: no edema Psych Appearance: grossly normal Mood: anxious mood Affect: sad Attitude: cooperative Thought Process: normal Insight: insight good Judgment: judgment good Results Labs Result diagrams: 12/27/21 11:30 12/27/21 20:15 Labs: Laboratory Results - last 24 hr 12/27/21 12/27/21 12/27/21 11:30 11:30 12:34 WBC 11.68 H RBC 4.71 Hgb 12.7 Hct 39.2 MCV 83 MCH 27.0 MCHC 32.4 RDW 13.3 Plt Count 748 H MPV 8.5 Immature Gran % 0.0 Neutrophils % 52.0 Band Neutrophils % 4 Lymphocytes % 26.0 Atypical Lymphs % 3 Monocytes % 9.0 Eosinophils % 6.0 Basophils % 0.0 Nucleated RBC % 0.0 Absolute Neutrophils 6.54 Absolute Lymphocytes 3.39 Absolute Monocytes 1.05 H Absolute Eosinophils 0.70 Absolute Basophils 0.00 RBC Morphology Normal Sodium 138 Potassium 3.8 Chloride 101 Carbon Dioxide 30.6 Anion Gap 6.4 BUN 9 Creatinine 0.9 Estimated GFR/1.73 m2 >= 60.00 Glucose 123 H Calcium 8.8 Magnesium 1.6 L Total Bilirubin 0.3 AST 9 L ALT 16 Alkaline Phosphatase 61 Total Protein 6.9 Albumin 2.0 L Urine Color Yellow Urine Clarity Clear Urine pH 6.0 Ur Specific [place] 1.010 Urine Protein Negative Urine Ketones Negative Urine Blood Moderate H Urine Nitrite Negative Urine Bilirubin Negative Urine Urobilinogen 0.2 Ur Leukocyte Esterase Moderate H Urine RBC 3-5 H Urine WBC 10-20 H Ur Epithelial Cells Few Urine Crystals Negative Urine Bacteria Few Urine Casts Negative Urine Mucus Negative Ur Culture Indicated? Yes Urine Glucose Negative COVID-19 Source SARS-CoV-2 (PCR) 12/27/21 12/27/21 16:45 20:15 WBC RBC Hgb Hct MCV MCH MCHC RDW Plt Count MPV Immature Gran % Neutrophils % Band Neutrophils % Lymphocytes % Atypical Lymphs % Monocytes % Eosinophils % Basophils % Nucleated RBC % Absolute Neutrophils Absolute Lymphocytes Absolute Monocytes Absolute Eosinophils Absolute Basophils RBC Morphology Sodium 136 Potassium 3.2 L Chloride 98 Carbon Dioxide 31.0 Anion Gap 7.0 BUN 7 Creatinine 1.0 Estimated GFR/1.73 m2 55.82 Glucose 141 H Calcium 8.5 Magnesium Total Bilirubin 0.2 AST 10 L ALT 14 Alkaline Phosphatase 59 Total Protein 6.4 Albumin 1.9 L Urine Color Urine Clarity Urine pH Ur Specific [place] Urine Protein Urine Ketones Urine Blood Urine Nitrite Urine Bilirubin Urine Urobilinogen Ur Leukocyte Esterase Urine RBC Urine WBC Ur Epithelial Cells Urine Crystals Urine Bacteria Urine Casts Urine Mucus Ur Culture Indicated? Urine Glucose COVID-19 Source Nasal/Nares SARS-CoV-2 (PCR) Positive A* Last Vital Signs Temp 99.3 F 12/27/21 20:24 Pulse 77 12/27/21 20:24 Resp 16 12/27/21 20:24 BP 100/60 12/27/21 20:24 Pulse Ox 95 12/27/21 20:24
[2021-12-27] MEDS: metroNIDAZOLE 500 MG/100 ML BAG 100 MG IVPB (22:05)
[2021-12-28] MEDS: MORPHine 2 MG/ML SYR IVP ×2 (03:27→09:26)
[2021-12-28] MEDS: Normal Saline Flush 10 ML SYR IVP ×3 (03:27→18:34)
[2021-12-28] MEDS: CIPROFLOXACIN 200 MG/100 ML BAG 100 MG IVPB ×3 (03:28→20:06)
[2021-12-28 03:29] VITALS: BP 110/63; PULSE 96; RESP 16; TEMP 37.1; O2SAT 92
[2021-12-28] MEDS: metroNIDAZOLE 500 MG/100 ML BAG 100 MG IVPB ×3 (06:06→21:53)
[2021-12-28 06:57] LABS: HCT 36.4 % (36.0-46.0); HGB 11.9 g/dL (11.2-15.7); MCH 26.9 pg (27.0-33.0); MCHC 32.7 % (32.0-36.0); MCV 82 fL (80-95); MPV 8.4 fL (8.0-11.0); Platelet Count 629 10^3/uL (130-400); RBC 4.42 10^6/uL (3.93-5.22); RDW 13.6 % (11.7-14.6); RDW-SD 41.1 fL; WBC 8.21 10^3/uL (4.4-10.8)
[2021-12-28 07:19] LABS: Absolute Eosinophil Count 0.49 10^3/uL (0.0-0.7); Absolute Lymphocyte Count 3.45 10^3/uL (1.2-3.4); Absolute Monocyte Count 0.66 10^3/uL (0.1-0.8); Absolute Neutrophil Count 3.61 10^3/uL (1.2-6.7); Atypical Lymphocytes % 2; Bands % 1; Diff Comment Manual Differential; RBC Morphology Normal
[2021-12-28 08:09] VITALS: BP 122/69; PULSE 83; RESP 17; TEMP 37.1; O2SAT 95
[2021-12-28] MEDS: Ondansetron 4 MG/2 ML VIAL IVP (09:26)
--- NOTE | 2021-12-28 10:27 | INITIAL_ITS ---
- If Service Date Differs Date of service: 12/28/21 Time of Service: 10:27 Care Management Initial Assess REASON FOR HOSPITALIZATION:: Colitis PAST MEDICAL HISTORY/PAST SURGICAL HISTORY:: All Active Problems. Colitis (Acute). Vomiting (Acute). Bilateral carotid bruits (Acute). Elevated LFTs (Acute). Cholelithiasis (Acute). Colostomy infection (Acute). Medical History. Anxiety disorder. Hyperlipidemia. Hypertension. Pancreatic lesion. Shingles. Tobacco use. Vitamin D deficiency. Surgical History. H/O colectomy PREVIOUS FUNCTIONAL STATUS/SOCIAL/FAMILY SUPPORTS:: Monse lives in [place] with her , and her daughter, Shirin. 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 She is independent at baseline. CURRENT FUNCTIONAL STATUS:: Monse is currently on Covid precautions therefore CM was unable to meet her in person, but CM talked to her on the phone. She reported that she is feeling better today, and her diet has been advanced. She stated that per MD, she will likely be ready for discharge tomorrow if she tolerates the advanced diet. CM will continue to follow. ADVANCE DIRECTIVES:: None on file. Has patient been provided with info about the portal/API?: Yes Did the patient sign up for the portal?: Yes (active) CODE STATUS:: Full Code INSURANCE COVERAGE / FINANCIAL ISSUES:: [employer] CURRENT HOME/COMMUNITY SERVICES/EQUIPMENT:: No services/equipment. PRIMARY CARE PHYSICIAN:: Sue Sandoval POTENTIAL DISCHARGE NEEDS:: Evaluations for further needs, follow up appointments. PATIENT/FAMILY EDUCATION NEEDS:: Review discharge instructions and limitations, discussion of self care needs including ask me three. ANTICIPATED BARRIERS TO DISCHARGE:: None. TRANSPORTATION:: Via private vehicle by family. PLAN:: Anticipate Monse will return home once medically cleared. Her daughter will drive her home via private vehicle when ready. She will follow up with her PCP and discharge plan of care. CM will continue to follow.
[2021-12-28 10:37] LABS: Lab Add On Test DONE
[2021-12-28 10:49] LABS: C-Reactive Protein 7.77 mg/dL (0.0-0.3)
[2021-12-28] MEDS: Ketorolac 15 MG/ML VIAL IVP ×2 (12:10→18:34)
[2021-12-28] MEDS: Lactated Ringers 1,000 ML 75 ML IV (14:03)
[2021-12-28 15:50] VITALS: BP 122/69; PULSE 98; RESP 16; TEMP 37; O2SAT 94
[2021-12-28] MEDS: Acetaminophen 500 MG TAB 1000 MG PO (18:33)
[2021-12-28] MEDS: Enoxaparin 40 MG/0.4 ML SYR SC (20:06)
[2021-12-29 00:03] LABS: Campylobacter PCR Negative (Negative); Salmonella PCR Negative (Negative); Shiga Toxin PCR Negative (Negative); Shigella/Enteroinvasive Ecoli Negative (Negative)
[2021-12-29] MEDS: Ketorolac 15 MG/ML VIAL IVP ×5 (00:48→23:33)
[2021-12-29 00:49] VITALS: BP 109/60; PULSE 80; RESP 18; TEMP 36.5; O2SAT 95
[2021-12-29] MEDS: CIPROFLOXACIN 200 MG/100 ML BAG 100 MG IVPB ×3 (04:40→20:26)
[2021-12-29 06:23] LABS: HCT 33.1 % (36.0-46.0); HGB 10.7 g/dL (11.2-15.7); MCHC 32.3 % (32.0-36.0); MCV 83 fL (80-95); MPV 8.6 fL (8.0-11.0); Platelet Count 533 10^3/uL (130-400); RBC 3.97 10^6/uL (3.93-5.22); RDW 13.5 % (11.7-14.6); RDW-SD 41.2 fL; WBC 9.07 10^3/uL (4.4-10.8)
[2021-12-29] MEDS: Lactated Ringers 1,000 ML 75 ML IV (06:31)
[2021-12-29] MEDS: metroNIDAZOLE 500 MG/100 ML BAG 100 MG IVPB ×3 (06:32→21:51)
[2021-12-29 07:52] VITALS: BP 103/62; PULSE 94; RESP 18; TEMP 37.2; O2SAT 94
[2021-12-29 09:59] LABS: Source Nasal/Nares
[2021-12-29 10:45] LABS: COVID-19 PCR Negative (Negative)
[2021-12-29] MEDS: Normal Saline Flush 10 ML SYR IVP ×2 (12:51→21:51)
[2021-12-29 15:16] VITALS: BP 103/65; PULSE 94; RESP 22; TEMP 36.6; O2SAT 96
--- NOTE | 2021-12-29 15:18 | PHA.REVIEW ---
Pharmacy Admission Review - Admission Clinical Review (Last Reviewed 12/27/21 @ 21:26 by Robert Westbrook MD) Colitis (Acute) No Known Allergies Allergy (Verified 12/14/21 16:28) Resuscitation Status Full Code Height 5 ft 2 in Weight 57.606 kg - Renal Dosing Renal Dosing: BUN 7 mg/dL (7-18) 12/27/21 20:15 Creatinine 1.0 mg/dL (0.55-1.02) 12/27/21 20:15 Medications needing adjustments: Reviewed (Crcl ~51.59 mL/min current meds okay.) - Anticoagulation Anticoagulation: Hgb 10.7 g/dL (11.2-15.7) L 12/29/21 06:00 Hct 33.1 % (36.0-46.0) L 12/29/21 06:00 Plt Count 533 10^3/uL (130-400) H 12/29/21 06:00 Creatinine 1.0 mg/dL (0.55-1.02) 12/27/21 20:15 DVT Prophylaxis: Reviewed (H/H down some since admission.) Medications: Enoxaparin Therapeutic Anticoagulation: N/A - Opiate Usage Evaluate Pain Scale/Pains Meds: Reviewed Scheduled Bowel Reg ordered if on Opiates?: No - Relevant Labs Sodium 136 mmol/L (136-145) 12/27/21 20:15 Potassium 3.2 mmol/L (3.5-5.1) L 12/27/21 20:15 Chloride 98 mmol/L (98-107) 12/27/21 20:15 Magnesium 1.6 mg/dL (1.8-2.4) L 12/27/21 11:30 C-Reactive Protein 7.77 mg/dL (0.0-0.3) H 12/28/21 06:30 Electrolytes, C-Reactive P, ESR: Intervened (IV mag replacment was ordered, but no K+ replacment was ordered. Will mention to provider.) - DM Control DM Control: Glucose 141 mg/dL (74-106) H 12/27/21 20:15 Insulin Dosing: N/A (No DM noted in pt's medical history, no A1c on file.) - Heart Failure/OR EF%, EVELYN's, B-Blockers, Diuretics: N/A - BP Control BP Control: Blood Pressure 103/65 Blood Pressure 103/62 If elevated: Reviewed (BP has been low to normal so far this admission. HR-94) - Qtc Review If Elevated: N/A - IV to PO Switch IV Medications: Reviewed - Home Meds Home Med List reviewed: Intervened (atorvastatin was unconfirmed on the med list in [employer]. The PCP's office list has atorvastatin listed as a home med, but the pt's preferred pharmacy has not filled atorvastatin. Will make provider aware. Will ask provider about ordering home meds as none are currently ordered.) Relevent Home Meds Not ordered & why?: atorvastatin (unconfirmed), fluoxetine, metoclopramide, metoprolol, multivitamin and spironolactone - Current meds Current Medication Order Review: Reviewed - Comments Comments/Follow Ups: Watch BP, HR, SCr, K+, mag, H/H, labs, for culture results and for med changes (possible renal dose adjustments, home meds). Antibiotic Activity - Pharmacy Antibiotic Review Pharmacy Antibiotic Activity: Reviewed, no change (Cipro and metronidazole continue. UC growing gram positive jordon.)
--- NOTE | 2021-12-29 15:58 | CHAPLAIN ---
Monse was resting in bed when I visited. She said she is feeling better and is in touch with family. She did not seem interested in further conversation.
--- NOTE | 2021-12-29 16:04 | W.PM.PROGNOT ---
Date of Service Date of service: 12/29/21 Time of Service: 16:04 Assessment and Plan Assessment and plan (1) Colitis: Status: Acute Assessment and plan: Clinically patient is feeling better. She is having less abdominal pain. She is tolerating regular diet. Her labs are returning to normal. She did have fevers and sweats last night. We will keep her until tomorrow on the IV Flagyl and Cipro. I did address her home medications and switch most of her meds to oral. Continue with regular diet. And if she is feeling better she can go home in the morning. (2) Vomiting: Status: Acute (3) Cholelithiasis: Status: Acute (4) Colostomy infection: Status: Acute (5) Anxiety disorder: (6) Hyperlipidemia: (7) Hypertension: (8) Tobacco use: (9) Vitamin D deficiency: (10) History of COVID-19: Status: Acute Assessment and plan: Patient had COVID-19 in September 2021. She is still within the 90-day window. They did an PCR test when she was admitted that tested positive. They repeated the cycle test today and it was negative. I did discuss her with Dr. Teodora del valle. He feels she was still positive on the PCR because she is within the 90-day window. Clinically the patient has no respiratory symptoms. Subjective Subjective Interval history since last seen: Pt is doing well. no headaches. No CP or SOB. no productive cough. no dysuria. no leg pain or swelling. From a GI standpoint she is feeling better. Her stools have returned to more of a normal consistency. She is tolerating regular diet. She did have severe sweats last night. Sounded like she was running a temp throughout the night. Her labs are significantly improved today. Her abdomen is feeling better and she feels less bloated. Exam Const Other: PHYSICAL EXAM GENERAL APPEARANCE: Alert, healthy appearance, oriented, in no acute distress SKIN: No rashes.? No breakdown HYDRATION: Well hydrated HEAD, EYES, EARS, NECK, THROAT: Head is normocephalic, pupils equal, round, reactive to light and accommodation, ocular movement intact, sclera clear and no jaundice. ?Dentition intact. No sore throat.? No jaw pain. No thrush NECK: Supple, Trachea midline. No JVD. LUNGS: normal respiration/nl chest excursion. ?Clear to auscultation B/l no R/R/W ?HEART: Regular rate and rhythm, EXTREMITY: No edema or cyanosis? no leg pain, redness, swelling.? No IV infiltration ABDOMEN: non tender to palpation, no masses or distention, no hernias. Normal bowel sounds her ostomy is common with her pouch and this is not taken down. NEURO: no focal neuro deficits. Objective Last Vital Signs Temp 36.6 C 12/29/21 15:16 Pulse 94 H 12/29/21 15:16 Resp 22 12/29/21 15:16 BP 103/65 12/29/21 15:16 Pulse Ox 96 12/29/21 15:16 Laboratory Results - last 24 hr 12/27/21 12/29/21 12/29/21 18:40 06:00 09:50 WBC 9.07 RBC 3.97 Hgb 10.7 L Hct 33.1 L MCV 83 MCH 27.0 MCHC 32.3 RDW 13.5 Plt Count 533 H MPV 8.6 Stool Campylobacter PCR Negative Stool Salmonella PCR Negative Stool Shigella PCR Negative COVID-19 Source Nasal/Nares SARS-CoV-2 (PCR) Negative Shiga Toxin (PCR) Negative Add-On Test Request 12/29/21 Unknown WBC RBC Hgb Hct MCV MCH MCHC RDW Plt Count MPV Stool Campylobacter PCR Stool Salmonella PCR Stool Shigella PCR COVID-19 Source SARS-CoV-2 (PCR) Shiga Toxin (PCR) Add-On Test Request Cancelled
--- NOTE | 2021-12-29 16:52 | CMPROGNOTE_ITS ---
- If Service Date Differs Date of service: 12/29/21 Time of Service: 16:52 Care Management Progress Note S/O: Monse was sitting up in a chair when CM met with her. She reported that she recently spoke to the MD, who stated that she will remain overnight for continued observation. Monse reported that she is feeling much better today, and was able to eat a regular meal at lunch. Per report, she will remain overnight for IV antibiotic therapy, and will likely be ready for discharge tomorrow. CM will continue to follow. A: Monse is a 66 year old female admitted to [facility] on 12/27/21 with colitis. P: Monse will return home once medically cleared. She will be transported home via private vehicle by family when ready. She will follow up with her PCP and discharge plan of care. CM will continue to follow.
[2021-12-29] MEDS: Enoxaparin 40 MG/0.4 ML SYR SC (20:26)
[2021-12-29] MEDS: Metoprolol 50 MG TAB PO (20:27)
[2021-12-29 22:51] VITALS: BP 100/60; PULSE 78; RESP 18; TEMP 38.2; O2SAT 93
[2021-12-29 23:33] VITALS: TEMP 38.2
[2021-12-29] MEDS: Acetaminophen 500 MG TAB 1000 MG PO (23:33)
[2021-12-30 00:22] LABS: Bilirubin Small (Negative); Blood Large (Negative); Clarity Cloudy (Clear); Glucose Negative (Negative); Ketones Trace mg/dL (Negative); Leukocyte Esterase Small (Negative); Nitrite Positive (Negative); Specific Gravity >= 1.030 (1.005-1.025); Urobilinogen 0.2 EU/dL (Up TO 0.2); pH 5.5 (5-8)
[2021-12-30 00:31] LABS: WBC >50 HPF (0-5)
[2021-12-30 00:32] LABS: C & S Indicated? Yes
[2021-12-30] MEDS: Zolpidem 6.25 MG TABCR PO ×2 (00:35→19:31)
[2021-12-30 00:38] LABS: C Diff PCR Negative (Negative)
[2021-12-30 00:45] VITALS: TEMP 36.7
[2021-12-30] MEDS: CIPROFLOXACIN 200 MG/100 ML BAG 100 MG IVPB (04:45)
[2021-12-30] MEDS: Ketorolac 15 MG/ML VIAL IVP ×3 (06:27→18:01)
[2021-12-30] MEDS: metroNIDAZOLE 500 MG/100 ML BAG 100 MG IVPB ×3 (06:28→22:18)
[2021-12-30 06:41] LABS: Abs Immature Grans 0.04 10^3/uL (0.0-0.06); HGB 10.5 g/dL (11.2-15.7); MCH 26.7 pg (27.0-33.0); MCHC 31.8 % (32.0-36.0); MCV 84 fL (80-95); MPV 8.6 fL (8.0-11.0); Platelet Count 504 10^3/uL (130-400); RBC 3.93 10^6/uL (3.93-5.22); RDW 13.6 % (11.7-14.6); RDW-SD 42.2 fL; WBC 9.45 10^3/uL (4.4-10.8)
[2021-12-30 07:00] LABS: C-Reactive Protein 8.82 mg/dL (0.0-0.3)
[2021-12-30 07:21] LABS: Absolute Eosinophil Count 0.28 10^3/uL (0.0-0.7); Absolute Lymphocyte Count 2.46 10^3/uL (1.2-3.4); Absolute Monocyte Count 0.66 10^3/uL (0.1-0.8); Absolute Neutrophil Count 6.05 10^3/uL (1.2-6.7); Atypical Lymphocytes % 5; Bands % 4; Diff Comment Manual Differential; RBC Morphology Normal
[2021-12-30 07:32] LABS: D-Dimer 808 ng/mlFEU (<500)
[2021-12-30 08:05] VITALS: BP 105/66; PULSE 80; RESP 18; TEMP 36.5; O2SAT 95
[2021-12-30] MEDS: Metoprolol 50 MG TAB PO (08:09)
[2021-12-30] MEDS: FLUoxetine 20 MG CAP 40 MG PO (08:09)
--- NOTE | 2021-12-30 11:11 | W.PM.PROGNOT ---
Date of Service Date of service: 12/30/21 Time of Service: 11:12 Assessment and Plan Assessment and plan (1) Colitis: Status: Acute Assessment and plan: Patient is feeling better. Low grade temp late last night. Ostomy site is edematous, which is most likely secondary to colitis and the irritation from her frequent liquid stools. Will continue to monitor this. Tolerating a regular diet. Patient seen and examined Agree with above Chart reviewed. It seems she has a UTI now. Cultures are pending Stool Cx and OVA and Parasites are negative Ostomy looks edematous and is tender to touch Will order some metamucil to try and bulk up her stools a bit Fosfomycin 3 g x 1 for UTI (2) Vomiting: Status: Acute (3) Cholelithiasis: Status: Acute (4) Colostomy infection: Status: Acute (5) Anxiety disorder: (6) Hyperlipidemia: (7) Hypertension: (8) Tobacco use: (9) Vitamin D deficiency: (10) History of COVID-19: Status: Acute Assessment and plan: Patient had COVID-19 in September 2021. She is still within the 90-day window. They did an PCR test when she was admitted that tested positive. They repeated the cycle test today and it was negative. I did discuss her with Dr. Teodora del valle. He feels she was still positive on the PCR because she is within the 90-day window. Clinically the patient has no respiratory symptoms. Subjective Subjective Interval history since last seen: Patient states she is feeling okay this morning. Her largest concern is the discomfort and swelling around her ostomy. She denies any nausea or vomiting. She states that she did have a fever last night. Exam Const General: cooperative, healthy appearing and comfortable Orientation: alert and oriented x3 Resp Effort & Inspection: normal respiratory effort, no audible wheezes and no cough GI Inspection: normal to inspection Palpation: soft, no guarding and nontender Other: ostomy site- Edematous. No open areas or bleeding noted. Thin, brown mucousy stool. Objective Last Vital Signs Temp 36.5 C 12/30/21 08:05 Pulse 80 12/30/21 08:05 Resp 18 12/30/21 08:05 BP 105/66 12/30/21 08:05 Pulse Ox 95 12/30/21 08:05 Laboratory Results - last 24 hr 12/29/21 12/29/21 12/30/21 23:40 23:40 06:25 WBC RBC Hgb Hct MCV MCH MCHC RDW Plt Count MPV Immature Gran % Neutrophils % Band Neutrophils % Lymphocytes % Atypical Lymphs % Monocytes % Eosinophils % Basophils % Nucleated RBC % Absolute Neutrophils Absolute Lymphocytes Absolute Monocytes Absolute Eosinophils Absolute Basophils RBC Morphology D-Dimer C-Reactive Protein 8.82 H Urine Color Yellow Urine Clarity Cloudy Urine pH 5.5 Ur Specific [place] >= 1.030 H Urine Protein 100 H Urine Ketones Trace H Urine Blood Large H Urine Nitrite Positive H Urine Bilirubin Small H Urine Urobilinogen 0.2 Ur Leukocyte Esterase Small H Urine RBC Not Applicable Urine WBC >50 H Ur Epithelial Cells Not Applicable Urine Crystals Not Applicable Urine Bacteria Not Applicable Urine Mucus Not Applicable Ur Culture Indicated? Yes Urine Glucose Negative Stl C.difficile Tox PCR Negative 12/30/21 12/30/21 06:25 06:25 WBC 9.45 RBC 3.93 Hgb 10.5 L Hct 33.0 L MCV 84 MCH 26.7 L MCHC 31.8 L RDW 13.6 Plt Count 504 H MPV 8.6 Immature Gran % 0.0 Neutrophils % 60.0 Band Neutrophils % 4 Lymphocytes % 21.0 Atypical Lymphs % 5 Monocytes % 7.0 Eosinophils % 3.0 Basophils % 0.0 Nucleated RBC % 0.0 Absolute Neutrophils 6.05 Absolute Lymphocytes 2.46 Absolute Monocytes 0.66 Absolute Eosinophils 0.28 Absolute Basophils 0.00 RBC Morphology Normal D-Dimer 808 H C-Reactive Protein Urine Color Urine Clarity Urine pH Ur Specific [place] Urine Protein Urine Ketones Urine Blood Urine Nitrite Urine Bilirubin Urine Urobilinogen Ur Leukocyte Esterase Urine RBC Urine WBC Ur Epithelial Cells Urine Crystals Urine Bacteria Urine Mucus Ur Culture Indicated? Urine Glucose Stl C.difficile Tox PCR
[2021-12-30] MEDS: Normal Saline Flush 10 ML SYR IVP ×3 (12:19→19:29)
[2021-12-30] MEDS: CIPROFLOXACIN 400 MG/200 ML BAG 200 MG IVPB (13:52)
[2021-12-30] MEDS: Fosfomycin Tromethamine 3 GM PACKET PO (13:52)
[2021-12-30 15:39] VITALS: BP 90/55; PULSE 76; RESP 19; TEMP 36.2; O2SAT 92
--- NOTE | 2021-12-30 16:33 | PDOC.CMPRO ---
- If Service Date Differs Date of service: 12/30/21 Time of Service: 16:33 Care Management Progress Note S/O: Monse was sitting up in bed when CM met with her. She reported that she was starting to feel better yesterday, but that overnight she had a fever and wasn't feeling well. Per MD, she will remain overnight for close monitoring and IV antibiotics, which may be changed today. Monse is comfortable with this plan. CM will continue to follow. A: Monse is a 66 year old female admitted to [facility] on 12/27/21 with colitis. P: Monse will return home once medically cleared. She will be transported home via private vehicle by family when ready. She will follow up with her PCP and discharge plan of care. CM will continue to follow.
[2021-12-30] MEDS: Psyllium PKT 1 EACH PO (19:30)
[2021-12-30] MEDS: Enoxaparin 40 MG/0.4 ML SYR SC (19:30)
[2021-12-30 23:59] VITALS: BP 94/53; PULSE 85; RESP 17; TEMP 37.1; O2SAT 95
[2021-12-31] MEDS: CIPROFLOXACIN 400 MG/200 ML BAG 200 MG IVPB (00:20)
[2021-12-31] MEDS: Ketorolac 15 MG/ML VIAL IVP ×2 (00:21→06:23)
[2021-12-31] MEDS: metroNIDAZOLE 500 MG/100 ML BAG 100 MG IVPB (06:23)
[2021-12-31 06:44] LABS: HCT 32.5 % (36.0-46.0); HGB 10.6 g/dL (11.2-15.7); MCHC 32.6 % (32.0-36.0); MCV 83 fL (80-95); MPV 8.5 fL (8.0-11.0); Platelet Count 546 10^3/uL (130-400); RBC 3.93 10^6/uL (3.93-5.22); RDW-SD 42.3 fL; WBC 9.39 10^3/uL (4.4-10.8)
[2021-12-31 07:10] VITALS: BP 102/55; PULSE 102; RESP 20; TEMP 37.7; O2SAT 94
[2021-12-31] MEDS: Metoprolol 50 MG TAB PO (08:31)
[2021-12-31] MEDS: Psyllium PKT 1 EACH PO (08:31)
[2021-12-31] MEDS: FLUoxetine 20 MG CAP 40 MG PO (08:31)
[2021-12-31 08:32] VITALS: BP 131/76; PULSE 118; RESP 16; TEMP 36.8; O2SAT 97
--- NOTE | 2021-12-31 09:45 | W.PM.DS.N ---
Date of service: 12/31/21 Time of Service: 09:46 DS: Diagnosis Discharge Diagnosis (1) Colitis: Status: Acute Asessment and Plan: improved with cipro and flagyl and some psyllium follow up with me 2 weeks for colonoscopy with biopsies to rule out crohns (2) History of COVID-19: Status: Resolved Asessment and Plan: resolved (3) Urinary tract infection: Status: Acute Asessment and Plan: treated with fosfomycin I will follow up urine culture Discharge Plan Disposition Patient Disposition: HOME Condition: Improving Discharge Details Reason For Visit: Colitis Admit Date/Time: 12/27/21 16:30 Admit Provider: Robert Westbrook Attending Provider: Robert Westbrook Primary Care Provider: Sue Sandoval [facility] Course Hospital Course: This is a 66-year-old woman with past surgical sigmoid colectomy (Arceo procedure) and failed attempt at reversal, leaving her with a distal enteroenterostomy, in situ terminal ileum, cecum and ascending colon, and end colostomy and a defunctionalized rectal stump. She has recently been suffering from abdominal pain and a change in the character of her colostomy output with diarrhea. She presented to the emergency department on December 27 with anorexia, abdominal pain, and diarrhea. She had a leukocytosis, and a CAT scan demonstrated severe colitis. I started ciprofloxacin and Flagyl intravenous, and we admitted her for hydration and further work-up. She did test positive for COVID, but she is asymptomatic and had a recent previous COVID infection. In that regards, this appears to be resolved rather than to active COVID. During the subsequent days, her leukocytosis normalized and her abdominal symptoms resolved. She did have a positive urinalysis and was treated with a single dose of fosfomycin in the case that this might be a resistant organism. By the morning of the , she was tolerating some diet without any nausea or vomiting. The character of her stoma output thickened, and she appeared appropriate for discharge. Home Meds and New Rx's Prescriptions: New Metamucil Sugar-Free (aspart) 3.4 gram/5.8 gram Powder 1 pwd PO BID Qty: 660 2RF Rx Instructions: 1 tablespoon two times per day mixed with water ciprofloxacin HCl [Cipro] 250 mg tablet 250 mg PO BID Qty: 20 0RF metronidazole 500 mg tablet 500 mg PO Q8H Qty: 30 0RF Continued multivitamin Tablet 1 tab PO DAILY spironolactone 25 mg tablet 25 mg PO DAILY fluoxetine 40 mg capsule 40 mg PO DAILY atorvastatin 40 mg tablet 40 mg PO HS metoclopramide HCl [Reglan] 5 mg tablet 5 mg PO QACHS PRN (Reason: nausea and vomiting) Qty: 10 0RF metoprolol tartrate 50 mg tablet 50 mg PO BID Label Comments: TAKE ONE TABLET BY MOUTH TWICE A DAY ondansetron 4 mg tablet,disintegrating 4 mg PO Q6H PRN PRN Label Comments: PLACE ONE TABLET BY MOUTH EVERY 6 HOURS NEEDED FOR NAUSEA AND VOMITING Discharge Instructions Instructions: Crohn Disease (GEN), Colonoscopy (GEN) Stand Alone Forms: Nursing Discharge Form Referrals: Sue Sandoval [Primary Care Provider] - 01/06/22 10:00 am (The office is currently relocated to [facility] in [facility]) Robert Westbrook MD [ [facility] STAFF PHYSICIAN] - 01/04/22 2:30 pm Activity:: Activity as Tolerated Equipment/Supplies:: No Equipment Needed Diet:: As Tolerated Discharge Orders Discharge Orders: Discharge Order (Routine); Ordered 12/31/21 Ordered By: Robert Westbrook DS: Summary Time Spent with Patient providing and/or coordinating discharge services: Greater than 30 minutes Status at Discharge Functional status at discharge: independent ambulation Overall status at discharge: patient is progressing back to baseline Mental Status: mental status grossly normal Speech and Movement: speech and movement normal Mood: congruent mood Affect: normal affect Exam Const General: cooperative, healthy appearing and comfortable Orientation: awake and oriented x3 Eyes General: appearance normal, both eyes and all related structures Conjunctivae: conjunctivae normal Sclera: sclerae normal Resp Effort & Inspection: normal respiratory effort and able to speak in complete sentences Cardio Jugular venous pressure: no JVD Rate: regular rate GI Inspection: non-distended Palpation: soft, no guarding, no hernias and nontender Auscultation: normal bowel sounds Skin General skin exam: normal turgor Neuro General: patient alert, patient awake and patient oriented x3 Cognition: normal cognition Extrem Right lower extremity: no edema Left lower extremity: no edema Psych Mental Status: mental status grossly normal Speech and Movement: speech and movement normal Mood: congruent mood Affect: normal affect DS: Data Vitals/I&O Vitals and I&O: Vital Signs Temperature 98.2 F 12/31/21 08:32 Temperature Source Tympanic 12/31/21 08:32 Pulse 118 H 12/31/21 08:32 Pulse Rhythm Regular 12/31/21 07:46 Respiratory Rate 16 12/31/21 08:32 Respiratory Effort Non-Labored 12/31/21 07:46 Respiratory Depth Normal 12/31/21 07:46 Respiratory Pattern Normal 12/31/21 07:46 Blood Pressure 131/76 12/31/21 08:32 Blood Pressure Mean 58 12/27/21 17:30 Blood Pressure Position Sitting 12/27/21 10:57 Pulse Oximetry 97 12/31/21 08:32 Oxygen Delivery Method Room Air 12/31/21 08:32 Oxygen Flow Rate 0 12/31/21 08:32 Pain Level 0 12/31/21 07:23 Comment 12/31/21 07:10 Intake & Output 12/30/21 12/30/21 12/31/21 11:59 23:59 11:59 Intake Total 840 / 1480 640 / 1480 200 / 200 Output Total 300 / 300 700 / 700 Balance 540 / 1180 640 / 1180 -500 / -500 Intake: IV 200 / 600 400 / 600 200 / 200 Oral 640 / 880 240 / 880 Output: Urine 300 / 300 700 / 700 Other: Urine Color Dark Aurora Light Aurora Urine Appearance Sediment Sediment Clear Urine Odor Normal Comment pt voiding independently in toilet. pt voiding independently in toilet. up independently to toilet Voiding Methods Toilet Toilet Data Completed and Pending Labs on day of discharge: Labs from last 24 hours 12/31/21 06:20 WBC 9.39 RBC 3.93 Hgb 10.6 L Hct 32.5 L MCV 83 MCH 27.0 MCHC 32.6 RDW 14.0 Plt Count 546 H MPV 8.5 Preliminary micro results at discharge 12/29/21 23:40 Urine Culture - Preliminary Urine - Reflex from Ua 12/29/21 23:56 Blood Culture - Preliminary Blood NO GROWTH 24 HOURS 12/29/21 23:50 Blood Culture - Preliminary Blood NO GROWTH 24 HOURS PFSH All Active Problems (Updated 12/31/21 @ 09:50 by Robert Westbrook MD) Urinary tract infection (Acute) Colitis (Acute) Vomiting (Acute) Bilateral carotid bruits (Acute) Elevated LFTs (Acute) Cholelithiasis (Acute) Colostomy infection (Acute) Medical History Anxiety disorder Hyperlipidemia Hypertension Pancreatic lesion Shingles Tobacco use Vitamin D deficiency Surgical History H/O colectomy Social History Smoking/Tobacco Use Status: Current-Occasional Tobacco Type: cigarettes Smoking risk assessment performed?: Yes Alcohol Intake: never Drug use: Never Substance use type: does not use Do you feel safe at home: Yes Do you feel safe in your relationship?: Yes
--- NOTE | 2021-12-31 15:05 | PDOC.CMDIS ---
- If Service Date Differs Date of service: 12/31/21 Time of Service: 15:05 LACE Index Scoring Tool - Questions: Length of Stay (in days): 4 - 6 Acuity (Admit via E.D.?): Yes E.D. Visits: 2 - Answers: Total Score: 9 Risk of Readmission: Low Risk Care Management Discharge Reason for Hospitalization: Colitis Discharge Plan: Monse will return home with no new services. She will drive herself home, as her car is in the parking lot. She will follow up with Surgical services, her PCP, and her discharge plan of care. She is happy to be going home. Patient/Family Education Needs: Review discharge instructions and limitations, discussion of self care needs including ask me three.
== END 2021-12-31 12:58 | disposition home or self-care (01) | DRG 391 ==
LOC: ER 17:42 → MS 18:30
PROVIDERS: Physical Therapy Assistant; Surgery; Admitting Provider Surgery; Emergency Provider Emergency Medicine; PCP Family Medicine; Visit Provider Surgery
DX: K52.9 Noninfective gastroenteritis and colitis, unspecified (principal); U07.1 COVID-19; N39.0 Urinary tract infection, site not specified; Z93.3 Colostomy status; F41.9 Anxiety disorder, unspecified; E78.5 Hyperlipidemia, unspecified; F17.210 Nicotine dependence, cigarettes, uncomplicated; E55.9 Vitamin D deficiency, unspecified; K80.20 Calculus of gallbladder without cholecystitis without obstruction; R11.10 Vomiting, unspecified
CPT/HCPCS: 36415; 80053; 85027; 87040; 87493; 87505; 87635; 96361; 96365; 96375; 99285; J1650; 74177; 81003; 81015; 83735; 85025; 85379; 86140; 87086; J0295; J0744; J1885; J2270; J2405; J3475; J3490

== ENCOUNTER 2022-02-25 13:31 | Day surgery (SDC) | payer BC, SELFPAY ==
--- NOTE | 2022-02-25 08:19 | W.PM.DSUDISC ---
Discharge Plan Disposition Patient Disposition: HOME Condition: Good Discharge Details Reason For Visit: diagnostic colonoscopy Attending Provider: Robert Westbrook Primary Care Provider: Sue Sandoval Home Meds and New Rx's Prescriptions: Continued multivitamin Tablet 1 tab PO DAILY spironolactone 25 mg tablet 25 mg PO DAILY fluoxetine 40 mg capsule 40 mg PO DAILY aspirin [Adult Aspirin Regimen] 81 mg tablet,delayed release (DR/EC) 81 mg PO DAILY potassium citrate 99 mg capsule 99 mg PO DAILY atorvastatin 40 mg tablet 40 mg PO HS metoclopramide HCl [Reglan] 5 mg tablet 5 mg PO QACHS PRN (Reason: nausea and vomiting) Qty: 10 0RF metoprolol tartrate 50 mg tablet 50 mg PO BID Label Comments: TAKE ONE TABLET BY MOUTH TWICE A DAY Discontinued bisacodyl [Dulcolax (bisacodyl)] 5 mg tablet,delayed release (DR/EC) 5 mg PO ONCE Qty: 4 0RF Rx Instructions: Take according to provider's instructions for colonoscopy prep. polyethylene glycol 3350 17 gram/dose powder 17 g PO ONCE Qty: 238 0RF Rx Instructions: To be taken as directed by prescriber's office for colonoscopy prep. Discharge Instructions Additional Instructions: 1. If tolerated, consume a soft, low fiber diet for 1-2 days. [address] not drive, drink alcohol, operate machinery, make critical decisions, or do activities that require coordination or balance for 24 hours. 3. Because air was put into your colon during the procedure, expelling air from your rectum (passing gas or farting) is normal. 4. You may not have a bowel movement for 1-3 days because of the colonoscopy prep. This is normal. 5. Go directly to the emergency room if you notice any of the following: Develop chills (warm to touch), or if you have a thermometer and your temperature is above 101 Difficulty breathing or difficultly swallowing Persistent vomiting Severe abdominal pain, other than gas cramps Severe chest pain Black, tarry stools Any bleeding ? exceeding one tablespoon 6. Call your physician if the site where your intravenous was started becomes red, swollen, painful, and warm to touch. 7. Your physician has reviewed your pre-procedure medications. Please continue to take those medications as previously ordered. You will be given specific information/education regarding any changes to your medications before leaving. 8. Your rectum, as well as your colon were quite inflamed, and I would expect some bloody discharge in the ostomy bag, and perhaps some blood from your anus during the coming days Activity:: Activity as Tolerated Diet:: As Tolerated Discharge Orders Discharge Orders: Discharge Order (Routine); Ordered 02/25/22 Ordered By: Robert Westbrook DS: Diagnosis Discharge Diagnosis (1) Colitis: Status: Acute Asessment and Plan: I will contact you with results of the biopsies
[2022-02-25 13:48] VITALS: BP 148/82; PULSE 85; RESP 16; TEMP 36.8; O2SAT 98
[2022-02-25] MEDS: Lactated Ringers 1,000 ML 80 ML IV (13:55)
--- NOTE | 2022-02-25 14:03 | W.ANESPRE ---
General Info Height: 5 ft 2 in Weight: 59.421 kg Body Mass Index (BMI): 23.9 Surgical Procedure: Operation Date: 02/25/22 15:05 Proposed Procedure Side Surgeon michael Westbrook MD Meds Allergies and Home Medications Allergies Allergy/AdvReac Type Severity Reaction Status Date / Time No Known Allergies Allergy Verified 02/24/22 11:19 Home Medication Medication Instructions Recorded fluoxetine 40 mg capsule 40 mg PO DAILY 07/16/21 multivitamin 1 tab PO DAILY 07/16/21 spironolactone 25 mg tablet 25 mg PO DAILY 07/16/21 metoclopramide HCl 5 mg tablet 5 mg PO QACHS PRN nausea and 12/14/21 (Reglan) vomiting #10 tabs atorvastatin 40 mg tablet 40 mg PO HS 12/24/21 metoprolol tartrate 50 mg tablet 50 mg PO BID 12/29/21 aspirin 81 mg tablet,delayed 81 mg PO DAILY 02/01/22 release (Adult Aspirin Regimen) potassium citrate 99 mg capsule 99 mg PO DAILY 02/01/22 Current Visit Medications: Current Medications Generic Name Dose Route Start Last Admin Trade Name Freq PRN Reason Stop Dose Admin Hyoscyamine Sulfate 0.125 mg 02/25/22 08:23 Hyoscyamine 0.125 Mg Sl/Oral/Chew SL DIRECTED PRN Ringer's Solution 1,000 mls @ 80 mls/hr 02/25/22 06:00 02/25/22 13:55 IV 03/26/22 23:59 80 mls/hr INFUSION JUDY Administration IV Miscellaneous Supplies 1 each 02/25/22 06:00 Iv Access IV 03/26/22 23:59 DIRECTED JUDY Ondansetron HCl 4 mg 02/25/22 08:23 Ondansetron 4 Mg/2 Ml Vial IVP Q4H PRN PRN Nausea / Vomiting Sodium Chloride 0 ml 02/25/22 06:00 Normal Saline Flush 10 Ml Syr IV 03/26/22 23:59 PRN PRN Sodium Chloride 0 ml 02/25/22 06:00 Normal Saline 10 Ml Vial IJ 03/26/22 23:59 DIRECTED PRN Sterile Water 0 ml 02/25/22 06:00 Water,Injection,Sterile 10 Ml Vial IJ 03/26/22 23:59 DIRECTED PRN PFSH Active Problems Active Problems: Problem Status Onset Code Colostomy infection K94.02 Cholelithiasis K80.20 Elevated LFTs R79.89 Bilateral carotid bruits R09.89 Colitis K52.9 Urinary tract infection N39.0 Medical History Medical History Anxiety disorder Diverticulitis Hyperlipidemia Hypertension Pancreatic lesion Shingles Tobacco use Vitamin D deficiency Surgical History Surgical History (Updated 02/25/22 @ 13:45 by Alyssia Willingham RN) H/O colectomy History of colonoscopy Tobacco Smoking/Tobacco Use Status: Current-Occasional Tobacco Type: cigarettes Alcohol Alcohol Intake: never Substance Use Substance use: Never Substance use type: does not use Vital Signs and Lab Results Vital Signs Most Recent Vital Signs in EMR: Most Recent Vital Signs Temp Pulse Resp BP Pulse Ox 36.8 C 85 16 148/82 H 98 02/25/22 13:48 02/25/22 13:48 02/25/22 13:48 02/25/22 13:48 02/25/22 13:48 Lab Results Blood Type / Crossmatch: No Data to Display Complete Blood Count: No Data to Display Complete Metabolic Panel: No Data to Display Liver Function Panel: No Data to Display Coagulation Panel: No Data to Display Cardiac Panel: No Data to Display Arterial Blood Gas: No Data to Display Venous Blood Gas: No Data to Display Pancreas Panel: No Data to Display Thyroid Panel: No Data to Display Infectious Disease: No Data to Display Blood Cultures: No Data to Display Toxicology Panel: No Data to Display Anesthesia Assessment and Plan Anesthesia History Personal History: No History of Anesthesia Complications Family History: No Family History of Anesthesia Complications Implantable Cardiac Device Does patient have a Pacemaker or an ICD?: No Anesthesia Plan Resuscitation Status: Full Code Anesthesia Technique: General Anesthesia Airway Planned: Natural Airway Monitors Used: Standard Monitors Preoperative Comments:: 66 yo female for colo. Sig PMHx: anxiety, HTN (metoprolol, spironolactone), smoker, colectomy/colostomy,
--- NOTE | 2022-02-25 14:19 | W.ANESPRE ---
General Info Date of Service Date Performed: 02/25/22 Height: 5 ft 2 in Weight: 59.421 kg Body Mass Index (BMI): 23.9 Surgical Procedure: Operation Date: 02/25/22 15:05 Proposed Procedure Side Surgeon michael Westbrook MD Meds Allergies and Home Medications Allergies Allergy/AdvReac Type Severity Reaction Status Date / Time No Known Allergies Allergy Verified 02/24/22 11:19 Home Medication Medication Instructions Recorded fluoxetine 40 mg capsule 40 mg PO DAILY 07/16/21 multivitamin 1 tab PO DAILY 07/16/21 spironolactone 25 mg tablet 25 mg PO DAILY 07/16/21 metoclopramide HCl 5 mg tablet 5 mg PO QACHS PRN nausea and 12/14/21 (Reglan) vomiting #10 tabs atorvastatin 40 mg tablet 40 mg PO HS 12/24/21 metoprolol tartrate 50 mg tablet 50 mg PO BID 12/29/21 aspirin 81 mg tablet,delayed 81 mg PO DAILY 02/01/22 release (Adult Aspirin Regimen) potassium citrate 99 mg capsule 99 mg PO DAILY 02/01/22 Current Visit Medications: Current Medications Generic Name Dose Route Start Last Admin Trade Name Freq PRN Reason Stop Dose Admin Hyoscyamine Sulfate 0.125 mg 02/25/22 08:23 Hyoscyamine 0.125 Mg Sl/Oral/Chew SL DIRECTED PRN Ringer's Solution 1,000 mls @ 80 mls/hr 02/25/22 06:00 02/25/22 13:55 IV 03/26/22 23:59 80 mls/hr INFUSION JUDY Administration IV Miscellaneous Supplies 1 each 02/25/22 06:00 Iv Access IV 03/26/22 23:59 DIRECTED JUDY Ondansetron HCl 4 mg 02/25/22 08:23 Ondansetron 4 Mg/2 Ml Vial IVP Q4H PRN PRN Nausea / Vomiting Sodium Chloride 0 ml 02/25/22 06:00 Normal Saline Flush 10 Ml Syr IV 03/26/22 23:59 PRN PRN Sodium Chloride 0 ml 02/25/22 06:00 Normal Saline 10 Ml Vial IJ 03/26/22 23:59 DIRECTED PRN Sterile Water 0 ml 02/25/22 06:00 Water,Injection,Sterile 10 Ml Vial IJ 03/26/22 23:59 DIRECTED PRN PFSH Active Problems Active Problems: Problem Status Onset Code Colostomy infection K94.02 Cholelithiasis K80.20 Elevated LFTs R79.89 Bilateral carotid bruits R09.89 Colitis K52.9 Urinary tract infection N39.0 Medical History Medical History Anxiety disorder Diverticulitis Hyperlipidemia Hypertension Pancreatic lesion Shingles Tobacco use Vitamin D deficiency Surgical History Surgical History (Updated 02/25/22 @ 13:45 by Alyssia Willingham RN) H/O colectomy History of colonoscopy Tobacco Smoking/Tobacco Use Status: Current-Occasional Tobacco Type: cigarettes Alcohol Alcohol Intake: never Substance Use Substance use: Never Substance use type: does not use Vital Signs and Lab Results Vital Signs Most Recent Vital Signs in EMR: Most Recent Vital Signs Temp Pulse Resp BP Pulse Ox 36.8 C 85 16 148/82 H 98 02/25/22 13:48 02/25/22 13:48 02/25/22 13:48 02/25/22 13:48 02/25/22 13:48 Lab Results Blood Type / Crossmatch: No Data to Display Complete Blood Count: No Data to Display Complete Metabolic Panel: No Data to Display Liver Function Panel: No Data to Display Coagulation Panel: No Data to Display Cardiac Panel: No Data to Display Arterial Blood Gas: No Data to Display Venous Blood Gas: No Data to Display Pancreas Panel: No Data to Display Thyroid Panel: No Data to Display Infectious Disease: No Data to Display Blood Cultures: No Data to Display Toxicology Panel: No Data to Display Anesthesia Assessment and Plan Anesthesia History Personal History: No History of Anesthesia Complications Family History: No Family History of Anesthesia Complications Exercise Tolerance Exercise Tolerance: Metabolic Equivalents>4 Pertinent Negatives Pertinent Negatives: No Symptoms of GERD, No Major Cardiovascular Symptoms or Complaints, No Major Pulmonary Symptoms or Complaints and No History of CVA/TIA Cardiac & Pulmonary Exam Cardiac Exam: Normal S1/S2 Heart Sounds Pulmonary Exam: Clear Bilateral Breath Sounds Implantable Cardiac Device Does patient have a Pacemaker or an ICD?: No Airway Exam Known Difficult Airway: No Mallampati Class: 3 Mouth Opening: Narrow (< 3cm) Thyromental Distance: Greater than 3 cm Neck Range of Motion: Full ROM Neck Circumference: Normal Teeth Condition: Normal Dentition (Patient reports. When she opened mouth unable to visualize teeth) ASA Classification ASA Score: ASA 2 Emergency Case?: No NPO Status NPO Status: NPO Clears >2 hours, Solids >8 hours Anesthesia Plan Resuscitation Status: Full Code Anesthesia Technique: General Anesthesia Airway Planned: Natural Airway Monitors Used: Standard Monitors
[2022-02-25 14:20] VITALS: BMI 23.9
--- NOTE | 2022-02-25 14:28 | BOWEL_PTH ---
PATIENT: Monse Reyes LOC: [facility] U#:[id number] AGE/SX: 66/F ROOM: RE02/25/[address]: Robert Westbrook MD : 1955 BED: DIS: 02/25/2022 SPEC #: [id number] RECD: 02/25/22 17:15 STATUS: KRISTINE RE #: [id number] CHARITY: 02/25/22 14:[address]: Robert Westbrook DEPT: Surgical Specimen RECD BY: Emely Meza ENTERED: 02/25/22 17:17 SP TYPE: Bowel OTHR DR: Sue Sandoval Tissues: 1 - BIOPSY BOWEL 2 - BIOPSY BOWEL Procedures: GROSS AND MICRO LEVEL 4 Comments: [id number]
[2022-02-25 14:46] VITALS: BP 118/66; PULSE 87; RESP 20; TEMP 36.3; O2SAT 96
--- NOTE | 2022-02-25 14:53 | COLE_ITS ---
Colonoscopy Report Date of procedure: 02/25/22 Pre-op diagnosis general: Colitis Post-op diagnosis procedure note: other (Crohn's disease) Procedure: Diagnostic colonoscopy Surgeon: Robert Westbrook Anesthesia Type: General:No Airway Estimated blood loss (mL): 25 Pathology: other (Rectal biopsies, and biopsies of descending colon) Complications: None Disposition: same day Indications: Monse Reyes is a 66-year-old woman who was undergone a partial colectomy in the past for perforated diverticulitis. Attempts were made at colostomy reversal, which had anastomotic complications resulting in creation of a permanent colostomy. She had multiple episodes of colitis, even requiring hospitalization. Additionally, she has had several peristomal granuloma and fistulous complications raising concern for Crohn's disease Prep: Miralax/Dulcolax Procedure Start Time: 14:38 Procedure End Time: 14:48 Procedure Description: I began with an external digital rectal exam. The anus and anal verge are normal-appearing. There were some skin tags. Next, I inserted the colonoscope through the anus and began insufflation. The rectal mucosa was extremely fria ble. There were some granulomatous formations up to the staple line. I performed random biopsies of the rectum. Next, he assisted the patient back into the supine position. I then removed the stoma device, and performed a digital exam of the colostomy. Generally, it felt normal down through the fascia. I did not appreciate any obstruction. Next, I gently inserted the colonoscope through the colostomy. It was immediately apparent that the mucosa was inflamed and irritated. It was covered with granulomatous changes. There was active bleeding in multiple areas. I was able to advance the scope approximately 10 to 15 cm. The entire mucosa of the descending colon was injected, erythematous, and granulomatous. I performed multiple biopsies here. Grossly it appeared consistent with Crohn's disease. In order to minimize colonoscopic complications, and having satisfactorily obtained multiple biopsies and visual confirmation raising concern for Crohn's, I elected to stop the colonoscopy at that point. I gently desufflated the [id number], and withdrew the colonoscope. I applied a new stoma device.
--- NOTE | 2022-02-25 14:56 | W.ANESPOSTOP ---
Postoperative Evaluation Date, Time and Location Date Performed: 02/25/22 Time Performed: 14:56 Patient Location: Day Surgery Unit Vital Signs Most Recent Imported Vital Signs: Most Recent Vital Signs Temp Pulse Resp BP Pulse Ox 36.3 C L 87 20 118/66 96 02/25/22 14:46 02/25/22 14:46 02/25/22 14:46 02/25/22 14:46 02/25/22 14:46 Pain Score Most Recent Pain Score: Most Recent Pain Score Pain Level 2 02/25/22 13:48 Assessment Mental Status: Awake (Alert & Oriented to Patient Baseline) Airway and Respiratory Function: Patent airway with normal (patient baseline) respiratory exam Cardiovascular Function: Hemodynamically Stable Hydration Status: Adequately Hydrated Nausea & Vomiting: No Nausea or Vomiting Pain: Pt. Denies Any Pain Peripheral Nerve Block: Patient did not receive a nerve block
[2022-02-25 15:14] VITALS: BP 126/74; PULSE 80; RESP 17; TEMP 36.7; O2SAT 97
== END 2022-02-25 15:36 | disposition home or self-care (01) ==
PROVIDERS: PCP Family Medicine; Visit Provider Surgery
PROC: 0DJD8ZZ Inspection of Lower Intestinal Tract, Via Natural or Artificial Opening Endoscopic (ICD-10-PCS; CPT 45378; principal; 2022-02-25 15:00)
DX: K50.10 Crohn's disease of large intestine without complications (principal); Z90.49 Acquired absence of other specified parts of digestive tract; Z93.3 Colostomy status; K52.9 Noninfective gastroenteritis and colitis, unspecified
CPT/HCPCS: 45380; 44389; 88305

== ENCOUNTER → 2022-05-03 02:37 | Outpatient (CLI) | payer BC, SELFPAY ==
--- NOTE | 2022-05-03 | DI.MAMMO_ITS ---
Exam(s) MAMMO SCREENING EXAM: MAMMO SCREENING CLINICAL HISTORY: SCREENING FOR BREAST CANCER Z12.39. TECHNIQUE: Bilateral full field digital CC and MLO mammographic images were obtained with 3D tomosyn thesis and utilizing computer aided detection (CAD). COMPARISON: Prior mammograms were reviewed. FINDINGS: There are no new significant radiographic findings in the right breast. Posteriorly in left breast there is a new concerning spiculated 1.7x 1.1 cm asymmetric density-mass l ocated approximately 10 cm in from the nipple and with some adjacent new microcalcifications. There also tiny microcalcifications within this new nodular density which is 10 cm in from the nipple on tavon th CC and MLO views. IMPRESSION: Concerning new suspicious nodule in the posterior left breast, suspicious for malignancy. Spot compr ession views and ultrasound recommended. BI-RADS Category 0 - Assessment Incomplete: Need additional imaging evaluation Breast Density - Category C - Heterogeneously dense Breast density Category C or D implies that the patient has dense breast tissue. Dense breast tissue can make it harder to find cancer on a mammogram. Dense breast tissue is also associated with an incr eased risk of breast cancer. This information about the result of the mammogram report was provided to the patient to raise their awareness. Use this report when you speak with the patient about their risks for breast cancer, which includes their family history. At that time, you may recommend additional screening tests (Ultrasoun d or MRI) as these tests may add significant information. A negative radiographic report should not delay biopsy if a dominant or clinically suspicious mass is present. Up to ten percent of cancers are not identified on mammography. A negative report may reinforce clinical impression. Adenosis and dense breasts may obscure an underlying neoplasm. False positive reports average 6 to 10%. Patient will receive a letter notifying them of these results.
== END ==
PROVIDERS: PCP Family Medicine; Visit Provider Family Medicine
DX: Z12.31 Encounter for screening mammogram for malignant neoplasm of breast (principal); R92.8 Other abnormal and inconclusive findings on diagnostic imaging of breast
CPT/HCPCS: 77063; 77067

== ENCOUNTER → 2022-05-12 01:08 | Outpatient (CLI) | payer BC, SELFPAY ==
--- NOTE | 2022-05-12 13:18 | DI.MAMMO_ITS ---
Exam(s) MG MAMMO SCREEN CALL BACK UNI US BREAST LT COMPLETE EXAM: MG MAMMO SCREEN CALL BACK UNI -LEFT AND COMPLETE LEFT BREAST ULTRASOUND CLINICAL HISTORY: NEW SPICULATED 1.7 X 1.1 CM ASYMMETRIC DENSITY, LT BREAST,10 CM FROM NIPPLE. TECHNIQUE: Unilateral LEFT BREAST spot mammographic images obtained with 3D tomosynthesisand [employer] computer aided detection (CAD). . Complete LEFT breast Ultrasound was also performed, including all 4 quadrants, the retroareolar regio n, and the ipsilateral axilla. COMPARISON: Prior mammograms were reviewed. This additional imaging was performed due to findings described on the recent screening mammogram of 05/03/2022. FINDINGS: DIAGNOSTIC MAMMOGRAM: Additional spot compression views performed today bring out the concerning nodule/mass described on t he recent screening mammogram. We proceeded with ultrasound. COMPLETE LEFT BREAST ULTRASOUND: Ultrasound performed today reveals a solitary finding which is at the 12 o'clock position and which c orresponds to the finding on the mammogram. Size measurements are approximately 1.6 x 0.8 cm and the re is associated both neutral and slightly decreased through transmission. Suspicious for malignancy . There are no other focal ultrasound findings in all 4 quadrants of the left breast. Scanning of the ipsilateral axilla reveals no significant adenopathy. IMPRESSION: Findings on these additional mammographic views and today's ultrasound examination are suspicious for malignancy at 12 o'clock position of the left breast. Appropriate follow-up, as discussed by myself with the patient today, is ultrasound-guided core biops y of this concerning finding in the left breast. The patient was informed of these findings and recommendations by myself prior to leaving the departm ent today. Findings and recommendation for biopsy also called by myself to referring physician following her vis it in our department today. BI-RADS Category 4 - Suspicious Abnormality: Biopsy should be considered Breast Density - Category C - Heterogeneously dense Breast density Category C or D implies that the patient has dense breast tissue. Dense breast tissue can make it harder to find cancer on a mammogram. Dense breast tissue is also associated with an incr eased risk of breast cancer. This information about the result of the mammogram report was provided to the patient to raise their awareness. Use this report when you speak with the patient about their risks for breast cancer, which includes their family history. At that time, you may recommend additional screening tests (Ultrasoun d or MRI) as these tests may add significant information. A negative radiographic report should not delay biopsy if a dominant or clinically suspicious mass is present. Up to ten percent of cancers are not identified on mammography. A negative report may reinforce clinical impression. Adenosis and dense breasts may obscure an underlying neoplasm. False positive reports average 6 to 10%. Patient will receive a letter notifying them of these results.
== END ==
PROVIDERS: PCP Family Medicine; Visit Provider Family Medicine
DX: Z12.31 Encounter for screening mammogram for malignant neoplasm of breast (principal); R92.8 Other abnormal and inconclusive findings on diagnostic imaging of breast
CPT/HCPCS: 76642; 77063; 77067

== ENCOUNTER 2022-06-04 00:21 | Outpatient (CLI) | payer BC, SELFPAY ==
--- NOTE | 2022-06-04 14:29 | DI.US_ITS ---
Exam(s) US NEEDLE LOCAL BREAST WO RAD EXAM: LT BREAST MASS, ULTRASOUND GUIDED BX COMPARISON: No exams were available for comparison TECHNIQUE: Ultrasound performed using standard protocol. FINDINGS: Sonography was provided for Dr. Westbrook during the performance of a left breast biopsy. Please refer to the procedure report for complete details. DATA REPOSITORY:
--- NOTE | 2022-06-04 14:30 | BREAST_PTH ---
PATIENT: Monse Reyes LOC: [facility] U#:[id number] AGE/SX: 66/F ROOM: RE06/04/[address]: Robert Westbrook MD : 1955 BED: DIS: 06/04/2022 SPEC #: [id number] RECD: 06/04/22 17:44 STATUS: OMIKlarissa REQ #: [id number] CHARITY: 06/04/22 14:[address]: Robert Westbrook DEPT: Surgical Specimen RECD BY: Emely Meza ENTERED: 06/04/22 17:46 SP TYPE: Breast OTHR DR: Sue Sandoval Tissues: 1 - BREAST BX NEEDLE Procedures: GROSS AND MICRO LEVEL 4 [id number] IPEX ESTROGEN/PROGESTERONE RECEPTOR IPEX STAIN Comments: [id number]
--- NOTE | 2022-06-04 16:22 | OPPNE_ITS ---
Date of service: 06/04/22 Time of Service: 14:30 Procedure Note Date of procedure: 06/04/22 Procedure: Ultrasound-guided core needle biopsy Surgeon/Proceduralist/Physician: Robert Westbrook Procedure Diagnosis: Left breast mass Procedure Indications: Monse is a 66-year-old woman with a newly diagnosed left breast mass by mammography. This was followed up with an ultrasound that demonstrated a BI- RADS 4 lesion in the left breast approximately 8 cm from the nipple around 12 o'clock position. Ultrasound was performed today, which identified the mass, slightly closer to the 10 o'clock position relative to the nipple. Procedure Description: With the assistance of the research quality assurance specialist, we were able to identify the lesion in question. Next, I prepped the skin in the usual fashion, adjacent to the ultrasound probe. I then used local anesthetic, under the direct vision of the ultrasound to numb the skin, and establish a tract of local anesthetic towards the left breast mass. Next, I made a small skin incision with an 11 blade scalpel. I then advanced a 22 mm Bard core needle biopsy device towards the lesion. I obtained 3 passes of core needle biopsies using the device. Finally, I placed a radiopaque marker in the area of the mass in case of future localization is required. Specimens were placed in formalin, and I held some pressure over the breast biopsy site. I applied a Band-Aid over the skin puncture site. I explained basic postprocedure care, and answered her questions. She tolerated the procedure well.
== END 2022-06-04 00:41 ==
LOC: DI 00:21
PROVIDERS: PCP Family Medicine; Visit Provider Surgery
DX: C50.812 Malignant neoplasm of overlapping sites of left female breast (principal)
CPT/HCPCS: 19083; 88305; 88360; 76942

== ENCOUNTER 2023-03-28 12:42 | Outpatient (REF) | payer BC, OTHER, SELFPAY ==
--- NOTE | 2023-03-28 13:00 | PAPFT_PTH ---
PATIENT: Monse Reyes LOC: [facility]#:[id number] AGE/SX: 67/F ROOM: RE03/28/[address]: Sue Sandoval : 1955 BED: DIS: 03/28/2023 SPEC #: [id number] RECD: 03/29/23 13:02 STATUS: KRISTINE REÁlvaro #: [id number] CHARITY: 03/28/23 13:[address]: Sue Sandoval DEPT: [facility] Cytology RECD BY: Emely Meza Tissues: 1 - CX/ENDOCX FOR PAP SMEARS Procedures: PAP THIN PREP/UVM Screening HPV DNA PROBE Comments: [id number] (HPV 16 & 18/45)
== END 2023-03-28 12:43 | disposition home or self-care (01) ==
LOC: NCHCN 12:42
PROVIDERS: PCP Family Medicine; Visit Provider Family Medicine
DX: Z12.72 Encounter for screening for malignant neoplasm of vagina (principal); Z11.51 Encounter for screening for human papillomavirus (HPV); R87.811 Vaginal high risk human papillomavirus (HPV) DNA test positive
CPT/HCPCS: 88142; 87624

== ENCOUNTER 2023-09-15 14:44 | Inpatient (IN) | payer MEDICARE, OTHER, SELFPAY ==
[2023-09-15] VITALS (30 sets, daily range): BP systolic 98–146; BP diastolic 42–82; PULSE 75–99; RESP 15–22; TEMP 36.4–36.8; O2SAT 91–98; BMI 27.1
--- NOTE | 2023-09-15 15:15 | DI.CT_ITS ---
Exam(s) CT ABDOMEN PELVIS W EXAM: CT ABDOMEN PELVIS W CLINICAL HISTORY: red/swollen/tender around ostomy. TECHNIQUE: Imaging Protocol: Axial computed tomography images with coronal and sagittal reformatted images were created and reviewed CONTRAST MATERIAL: Intravenous: Omnipaque 350 Contrast volume:100 ml Oral: no COMPARISON: CT CT ABDOMEN PELVIS W from 12/27/2021 FINDINGS: ABDOMEN and PELVIS: Lung Bases: No acute findings. Liver: Normal density. No suspicious mass. Gallbladder and biliary tract: Gallbladder is contracted. No radiodense calculus or biliary dilation . Pancreas: Normal density. No abnormal calcifications or inflammatory process. No evidence of mass. Spleen: Normal. Kidneys: Normal size, contour and axis. None tiny nonobstructing stone upper pole left kidney. No o bstructive uropathy. No suspicious masses seen. Stable multiple tiny cysts. Adrenal glands: No masses seen. Vasculature: Abdominal aorta non-dilated. Soft tissues: Large abscess in the subcutaneous fat lateral to the left lower quadrant ostomy. Appro ximate dimensions 7.4 x 6.7 by 9.2 cm. Bladder: Left lower quadrant anastomosis. No gross wall thickening. No calculi.No focal mass. Bowel: No obstruction. No bowel wall thickening. Appendix normal. Peritoneal cavity: No ascites. No focal collection or mesenteric inflammatory response. Bones: Unremarkable for age. Reproductive organs: Within normal limits. Lymph nodes: Unremarkable. IMPRESSION:: Large abscess lateral to the left-sided ostomy. Findings called to Grabiel Gaitan, ER provider. RADIATION DOSE DELIVERED: 785.99mGy.cm Total DLP DATA REPOSITORY: All CT scans at this facility are submitted to the National Radiology Data Registry (NRDR) Dose Index Registry (DIR) with the [employer] (ACR). RADIATION OPTIMIZATION: All CT scans at this facility use at least one of these dose optimization te chniques: automated exposure control; mA and/or kV adjustment per patient size (includes targeted exa ms where dose is matched to clinical indication); or iterative reconstruction.
--- NOTE | 2023-09-15 15:18 | ED.GENADUL_ITS ---
Discharge Plan Disposition Patient Disposition: Admit to [facility] Discharge Details Clinical Impression: Intra-abdominal abscess Primary Care Provider: Sue Sandoval ED Provider: Grabiel Gaitan Home Meds and New Rx's Prescriptions: No Action multivitamin Tablet 1 tab PO DAILY spironolactone 25 mg tablet 25 mg PO DAILY fluoxetine 40 mg capsule 40 mg PO DAILY aspirin [Adult Aspirin Regimen] 81 mg tablet,delayed release (DR/EC) 81 mg PO DAILY potassium citrate 99 mg capsule 99 mg PO DAILY atorvastatin 40 mg tablet 40 mg PO HS metoclopramide HCl [Reglan] 5 mg tablet 5 mg PO QACHS PRN (Reason: nausea and vomiting) Qty: 10 0RF metoprolol tartrate 50 mg tablet 50 mg PO BID Patient Comments: TAKE ONE TABLET BY MOUTH TWICE A DAY letrozole 2.5 mg tablet Patient Comments: TAKE ONE TABLET BY MOUTH EVERY DAY HPI General Date/Time Provider Initiated Documentation: 09/15/23 15:09 . HPI Narrative: 68 year-old female presents to ED today by POV/ambulating with a chief complaint of abdominal pain, redness, swelling, tenderness with onset over the past month. Patient has ostomy to this area of swelling and redness due to chronic ulcerative colitis- ostomy performed here at [facility]. Quality described as tender to touch, states ostomy is working chronically, endorses redness and induration, no radiation to fever, black bloody stools, shortness of breath, nausea vomiting, cough, weakness. Severity is described as severe. Palliating factors include not responsive to OTC analgesics. Provoking factors include questions whether this is linked with her discontinuation of mesalamine for her ulcerative colitis. Patient not anticoagulated. Related Data Home Medications Medication Instructions Recorded Confirmed fluoxetine 40 mg capsule 40 mg PO DAILY 07/16/21 09/15/23 multivitamin 1 tab PO DAILY 07/16/21 09/15/23 spironolactone 25 mg tablet 25 mg PO DAILY 07/16/21 09/15/23 metoclopramide HCl 5 mg tablet 5 mg PO QACHS PRN nausea and 12/14/21 09/15/23 (Reglan) vomiting #10 tabs atorvastatin 40 mg tablet 40 mg PO HS 12/24/21 09/15/23 metoprolol tartrate 50 mg tablet 50 mg PO BID 08/09/22 04/25/24 aspirin 81 mg tablet,delayed 81 mg PO DAILY 02/01/22 09/15/23 release (Adult Aspirin Regimen) potassium citrate 99 mg capsule 99 mg PO DAILY 02/01/22 09/15/23 letrozole 2.5 mg tablet mg 09/15/23 Previous Rx's Medication Instructions Recorded metoclopramide HCl 5 mg tablet 5 mg PO QACHS PRN nausea and 12/14/21 (Reglan) vomiting #10 tabs Allergies Allergy/AdvReac Type Severity Reaction Status Date / Time No Known Allergies Allergy Verified 09/15/23 18:47 General Stated Complaint: Abd Prob EDWARD: 3 Review of Systems All systems reviewed & are unremarkable except as noted in HPI and below Exam Narrative Exam Narrative: GENERAL APPEARANCE: Well-nourished, non-toxic, awake and alert, atraumatic, no acute distress. SKIN: Warm, pink, dry, intact, without rashes/lesions/ulcerations. HEAD: Normocephalic, atraumatic, normal hair distribution for gender/age. EYES: Pupils PERRLA, EOMs intact without nystagmus, normal conjunctiva, no exudates on lids/lashes. ENT: Nares patent, no circumoral cyanosis, no facial swelling NECK: Supple, trachea midline, painless cervical ROM. LUNGS/CHEST: Lungs CTA bilaterally- no rhonchi/rales/wheezes diffusely, non- labored respirations, normal A/P diameter, symmetrical expansion, no chest wall deformity HEART (CV/PV): Regular rate and rhythm without murmur, no peripheral edema, no JVD. ABDOMEN: Soft, non-distended, no guarding, tender indurated area [id number] to the inf/lat portion of her ostomy site, very tender to touch, normoactive bowel sounds, no Rovsing's. MSK: Normal ROM, no swelling/deformity to bilateral UEs or LEs, moving all extremities without weakness, no cyanosis, spine midline without tenderness, normal curvature. NEURO: Mental Status AAOx4 - alert to person, place, time, events No facial droop, no forehead involvement. Motor: No focal weakness - strength 5/5 in bilateral UEs and LEs, proximal and distal, symmetric. Sensory: sensation intact to light touch globally. Gait normal: patient ambulated without ataxia into ED room. PSYCH: euthymic, cooperative, pleasant, appropriate speech Course Vital Signs Vital signs: Vital Signs Temperature 36.4 C L 09/15/23 14:46 Pulse 84 09/15/23 14:46 Respiratory Rate 15 09/15/23 14:46 Blood Pressure 137/58 L 09/15/23 14:46 Pulse Oximetry 98 09/15/23 14:46 Temperature 36.4 C L 09/15/23 14:48 Temperature Source Tympanic 09/15/23 14:48 Pulse 81 09/15/23 15:00 Respiratory Rate 15 09/15/23 14:48 Respiratory Effort Normal 09/15/23 14:48 Blood Pressure 136/62 09/15/23 15:00 Blood Pressure Mean 87 09/15/23 15:00 Blood Pressure Position Sitting 09/15/23 14:48 Pulse Oximetry 98 09/15/23 14:48 Oxygen Delivery Method Room Air 09/15/23 14:48 Oxygen Flow Rate 0 09/15/23 14:48 Pain Level 9 09/15/23 14:48 Medical Decision Making This dictation utilizes [id number] dictation software and may contain unedited grammatical errors. 68 y/o F presents to ED today with a chief complaint of increasing redness, tenderness and swelling to her abdomen near her ostomy site. Ostomy placed at [facility] in remote past due to Ulcerative Colitis. Patient had discontinued her mes alamine in anticipation of getting infusions, but insurance logistics delayed this process. That was about 3 weeks ago. In the 3-4 weeks since she has developed this swelling and pain and redness in her abdomen next to her site. She states that the ostomy is working correctly, denies fever, denies nausea/weakness/tachycardia, denies urinary changes. Patients' medical history: Diverticulitis, hypertension, hyperlipidemia, bilateral carotid bruits, cholelithiasis. Family and social history: Noncontributory. Pertinent exam findings / vital signs include ABDOMEN: Soft, non-distended, no guarding, tender indurated area [id number] to the inf/lat portion of her ostomy site, very tender to touch, normoactive bowel sounds, no Rovsing's.. Differential / pathologies of concern include abscess, cellulitis, ulcerative colitis flare, sepsis, SBO, biliary colic. Diagnostic studies of: -CBC, CMP, Lactate, Procalcitonin, Lipase, UA, CRP/ESR, CT ABD/Pelvis w Contrast. -CBC shows leukocytosis of 16, no anemia -CMP benign -Lactate neg, procalcitonin neg -Lipase WNL -CRP/ESR markedly elevated -CT shows large 7x6x9 subQ abscess adjacent to ostomy site, question involvement of the tract, discussing with surgery Interventions of: -Discussed ABX choice with Surgery, they will evaluate the patient in ED before making a decision on antibiotic of choice, provided Tylenol while in ED, no complications. ED Course/Assessment/Plan: 68-year-old female with ostomy placed here at [facility] in the remote past presents with a reddened tender area around her left lower quadrant stoma site going on for 1 month, states the stoma still operating as intended, course is complicated by her recent discontinuation of mesalamine for ulcerative colitis with plan to start infusion therapy but insurance logistics have delayed this until next week, she has been off these meds for 3 weeks. She has no elevation of leukocytes, lactate is within normal limits and her inflammatory markers are significantly elevated. Her CT shows an abdominal abscess lateral to her ostomy site, consulted with general surgery on-call, loaded with antibiotics and admitted for drainage of abscess, consider steroids for acute ulcerative colitis flare but I think this would be detrimental in the setting of abscess and antibiotic use until this infection is cleared. Dr. Harrell accepts patient for admission @ 1935. Disposition of Intra-Abdominal Abscess. Patient verbalized understanding of the plan and return to ED criteria and engaged in shared decision making. Medical Records Medical records reviewed: Yes I reviewed the patient's medical records. Imaging Data Radiologic Study: Attestation: I personally reviewed and interpreted this imaging study as follows: Imaging: CT Scan Radiologist's impression: EXAM: CT ABDOMEN PELVIS W CLINICAL HISTORY: red/swollen/tender around ostomy. TECHNIQUE: Imaging Protocol: Axial computed tomography images with coronal and sagittal reformatted images were created and reviewed CONTRAST MATERIAL: Intravenous: Omnipaque 350 Contrast volume:100 ml Oral: no COMPARISON: CT CT ABDOMEN PELVIS W from 12/27/2021 FINDINGS: ABDOMEN and PELVIS: Lung Bases: No acute findings. Liver: Normal density. No suspicious mass. Gallbladder and biliary tract: Gallbladder is contracted. No radiodense calculus or biliary dilation. Pancreas: Normal density. No abnormal calcifications or inflammatory process. No evidence of mass. Spleen: Normal. Kidneys: Normal size, contour and axis. None tiny nonobstructing stone upper pole left kidney. No obstructive uropathy. No suspicious masses seen. Stable multiple tiny cysts. Adrenal glands: No masses seen. Vasculature: Abdominal aorta non-dilated. Soft tissues: Large abscess in the subcutaneous fat lateral to the left lower quadrant ostomy. Approximate dimensions 7.4 x 6.7 by 9.2 cm. Bladder: Left lower quadrant anastomosis. No gross wall thickening. No calculi.No focal mass. Bowel: No obstruction. No bowel wall thickening. Appendix normal. Peritoneal cavity: No ascites. No focal collection or mesenteric inflammatory response. Bones: Unremarkable for age. Reproductive organs: Within normal limits. Lymph nodes: Unremarkable. IMPRESSION:: Large abscess lateral to the left-sided ostomy. Findings called to Grabiel Gaitan, ER provider. Lab Data Lab results reviewed: Yes I reviewed the patient's lab results. Labs: Laboratory Tests Range/Units 09/15/23 15:30 WBC (4.4-10.8) 10^3/uL 16.16 H RBC (3.93-5.22) 10^6/uL 4.81 Hgb (11.2-15.7) g/dL 12.6 Hct (36.0-46.0) % 39.3 MCV (80-95) fL 82 MCH (27.0-33.0) pg 26.2 L MCHC (32.0-36.0) % 32.1 RDW (11.7-14.6) % 13.6 Plt Count (130-400) 10^3/uL 503 H MPV (8.0-11.0) fL 9.0 Immature Gran % 0.0 Neutrophils % 72.0 Lymphocytes % 14.0 Atypical Lymphs % 1 Monocytes % 11.0 Eosinophils % 2.0 Basophils % 0.0 Nucleated RBC % (0.0-0.3) % 0.0 Absolute Neutrophils (1.2-6.7) 10^3/uL 11.64 H Absolute Lymphocytes (1.2-3.4) 10^3/uL 2.42 Absolute Monocytes (0.1-0.8) 10^3/uL 1.78 H Absolute Eosinophils (0.0-0.7) 10^3/uL 0.32 Absolute Basophils (0.0-0.2) 10^3/uL 0.00 RBC Morphology Normal ESR (0-30) mm/hr 94 H VBG Lactate (0.6-1.4) mmol/L 0.7 Sodium (136-145) mmol/L 137 Potassium (3.5-5.1) mmol/L 3.9 Chloride (98-107) mmol/L 99 Carbon Dioxide (21.0-32.0) mmol/L 27.6 Anion Gap (3-11) mmol/L 10.4 BUN (7-18) mg/dL 17 Creatinine (0.55-1.02) mg/dL 1.0 Est GFR (CKD-EPI 2020) (mL/min/1.73m2) 62.13 Glucose (74-106) mg/dL 107 H Calcium (8.5-10.1) mg/dL 9.8 Total Bilirubin (0.2-1.0) mg/dL 0.2 AST (15-37) U/L 14 L ALT (14-59) U/L 19 Alkaline Phosphatase (46-116) U/L 79 C-Reactive Protein (<or=0.5) mg/dL 9.49 H Total Protein (6.4-8.2) g/dL 8.1 Albumin (3.4-5.0) g/dL 2.9 L Lipase (16-77) U/L 29 Procalcitonin ng/mL < 0.1 Quality:SDOH Health Related Social Needs: No Data to Display PFSH All Active Problems (Updated 09/15/23 @ 19:49 by Nieves Harrell DO) Peristomal abscess, ileostomy (Acute) Intra-abdominal abscess (Acute) Breast cancer (Chronic) Crohn's disease (Chronic) Colostomy infection (Acute) Cholelithiasis (Acute) Elevated LFTs (Acute) Bilateral carotid bruits (Acute) Urinary tract infection (Acute) Medical History (Updated 09/15/23 @ 19:49 by Nieves Harrell DO) Diverticulitis Tobacco use Hypertension Hyperlipidemia Vitamin D deficiency Anxiety disorder Shingles Pancreatic lesion Surgical History (Updated 02/25/22 @ 13:45 by Alyssia Willingham RN) History of colonoscopy H/O colectomy Social History Smoking/Tobacco Use Status: Current-Occasional Tobacco Type: cigarettes Smoking risk assessment performed?: Yes Alcohol Intake: never Drug use: Never Substance use type: does not use Do you feel safe at home: Yes Do you feel safe in your relationship?: Yes
[2023-09-15 15:35] LABS: Lactate 0.7 mmol/L (0.6-1.4)
[2023-09-15 15:36] LABS: Abs Immature Grans 0.08 10^3/uL (0.0-0.06); HCT 39.3 % (36.0-46.0); HGB 12.6 g/dL (11.2-15.7); MCH 26.2 pg (27.0-33.0); MCHC 32.1 % (32.0-36.0); MCV 82 fL (80-95); RBC 4.81 10^6/uL (3.93-5.22); RDW 13.6 % (11.7-14.6); RDW-SD 40.7 fL; WBC 16.16 10^3/uL (4.4-10.8)
[2023-09-15 15:39] LABS: ESR 94 mm/hr (0-30)
[2023-09-15 15:45] LABS: Absolute Eosinophil Count 0.32 10^3/uL (0.0-0.7); Absolute Monocyte Count 1.78 10^3/uL (0.1-0.8); Absolute Neutrophil Count 11.64 10^3/uL (1.2-6.7)
[2023-09-15 15:46] LABS: Absolute Lymphocyte Count 2.42 10^3/uL (1.2-3.4); Atypical Lymphocytes % 1; Platelet Count 503 10^3/uL (130-400)
[2023-09-15 15:47] LABS: Diff Comment Diff Reviewed; RBC Morphology Normal
[2023-09-15 15:57] LABS: ALT 19 U/L (14-59); AST 14 U/L (15-37); Albumin 2.9 g/dL (3.4-5.0); Alkaline Phosphatase 79 U/L (46-116); Anion Gap 10.4 mmol/L (3-11); BUN 17 mg/dL (7-18); Bilirubin, Total 0.2 mg/dL (0.2-1.0); C-Reactive Protein 9.49 mg/dL (<or=0.5); CO2 27.6 mmol/L (21.0-32.0); Calcium 9.8 mg/dL (8.5-10.1); Chloride 99 mmol/L (98-107); Estimated GFR 62.13 (mL/min/1.73m2); Glucose 107 mg/dL (74-106); Lipase 29 U/L (16-77); Potassium 3.9 mmol/L (3.5-5.1); Sodium 137 mmol/L (136-145); Total Protein 8.1 g/dL (6.4-8.2)
[2023-09-15 16:21] LABS: Procalcitonin < 0.1 ng/mL
[2023-09-15] MEDS: Normal Saline - Diluent 50 ML VIAL IJ (17:13)
[2023-09-15] MEDS: Omnipaque 350 MG/ML 100 ML BTL IJ (17:17)
[2023-09-15] MEDS: Normal Saline Flush 10 ML SYR IVP (17:19)
--- NOTE | 2023-09-15 19:31 | HPE_ITS ---
Date of service: 09/15/23 Time of Service: 19:31 Assessment and Plan Assessment and plan (1) Peristomal abscess, ileostomy: Status: Acute Assessment and plan: Currently the patient is hemodynamically stable. It is unlikely that this abscess will resolve without surgical intervention therefore, incision and drainage of peristomal abscess was recommended. The risks and the benefits of the procedure were explained to the patient. Informed consent obtained - IV abx - IV resuscitation - post op pain control - restart mesalamine when appropriate - consult medicine for HTN, advanced age - due to patient's history of Crohn's there is concern for a peristomal fistula History of Present Illness History of Present Illness Chief Complaint: Abdominal pain and swelling near stoma Narrative: This patient is a pleasant 68-year-old female with past medical history of perforated diverticulitis status post Mati procedure and 2011, Crohn's inflammatory bowel disease and hypertension. Attempts were made at colostomy reversal however there were anastomotic complications resulting in creation of a permanent colostomy. The patient presents to the emergency department with 2 weeks of peristomal pain, erythema and swelling. Further evaluation in the emergency department demonstrated leukocytosis of 16,000. CT scan of the abd/pelvis demonstrated a 10 cm abscess in the subcutaneous tissue associated with the patient's left lower quadrant colostomy. Upon arrival to the bedside the patient is in no acute distress. The patient states that 2 years ago she was diagnosed with Crohn's. She was scheduled for mesalamine infusions however did that did not occur due to insurance reasons. Her last oral dose of mesalamine was approximately 1 month ago. The patient also complains of having nausea and vomiting that started Tuesday. She attributes this to a Crohn's flare up. Patient also states that she has chronic bloody stools. The patient is treated locally by her surgeon Dr. Westbrook and her GI doctor is at [facility]. Review of Systems Constitutional Constitutional: Reports as per HPI, Reports fever(s) and Reports weakness Gastrointestinal Gastrointestinal: Reports abdominal pain, Denies change in stool character, Reports nausea and Reports vomiting Neurologic Neurologic: Reports weakness PFSH All Active Problems (Updated 09/15/23 @ 19:49 by Nieves Harrell DO) Peristomal abscess, ileostomy (Acute) Intra-abdominal abscess (Acute) Breast cancer (Chronic) Crohn's disease (Chronic) Colostomy infection (Acute) Cholelithiasis (Acute) Elevated LFTs (Acute) Bilateral carotid bruits (Acute) Urinary tract infection (Acute) Medical History (Updated 09/15/23 @ 19:49 by Nieves Harrell DO) Diverticulitis Tobacco use Hypertension Hyperlipidemia Vitamin D deficiency Anxiety disorder Shingles Pancreatic lesion Surgical History (Updated 02/25/22 @ 13:45 by Alyssia Willingham RN) History of colonoscopy H/O colectomy Social History Smoking/Tobacco Use Status: Current-Occasional Tobacco Type: cigarettes Smoking risk assessment performed?: Yes Alcohol Intake: never Drug use: Never Substance use type: does not use Do you feel safe at home: Yes Do you feel safe in your relationship?: Yes Meds Allergies and Home Medications Allergies Allergy/AdvReac Type Severity Reaction Status Date / Time No Known Allergies Allergy Verified 09/15/23 18:47 Home Medications Medication Instructions Recorded Confirmed Type fluoxetine 40 mg capsule 40 mg PO DAILY 07/16/21 09/15/23 History multivitamin 1 tab PO DAILY 07/16/21 09/15/23 History spironolactone 25 mg tablet 25 mg PO DAILY 07/16/21 09/15/23 History metoclopramide HCl 5 mg tablet 5 mg PO QACHS PRN nausea and 12/14/21 09/15/23 Rx (Reglan) vomiting #10 tabs atorvastatin 40 mg tablet 40 mg PO HS 12/24/21 09/15/23 History metoprolol tartrate 50 mg tablet 50 mg PO BID 12/29/21 09/15/23 History aspirin 81 mg tablet,delayed 81 mg PO DAILY 02/01/22 09/15/23 History release (Adult Aspirin Regimen) potassium citrate 99 mg capsule 99 mg PO DAILY 02/01/22 09/15/23 History letrozole 2.5 mg tablet mg 09/15/23 History Exam Const General: cooperative, comfortable, no acute distress and well developed Nutritional Appearance: average body habitus Eyes General: appearance normal, both eyes and all related structures Sclera: sclerae normal Other: no sclera icterus Resp Effort & Inspection: normal respiratory effort and no respiratory distress Auscultation: clear to auscultation bilaterally Cardio Rate: regular rate Rhythm: regular rhythm Heart Sounds: S1 normal and S2 normal GI Inspection: normal to inspection and scar Palpation: soft Other: soft. midline incision, LLQ ostomy with associated erythema, swelling and tenderness to palpation Skin General skin exam: no rashes or lesions noted Wounds: no wounds Results Imaging Abdomen CT scan report/results: report reviewed, image reviewed and other (the abscess does not appear to be intra abdominal. it appears to be confined to the subcutaneous tissues.) Labs 09/15/23 15:30 09/15/23 15:30 Labs: Laboratory Results - last 24 hr 09/15/23 15:30 WBC 16.16 H RBC 4.81 Hgb 12.6 Hct 39.3 MCV 82 MCH 26.2 L MCHC 32.1 RDW 13.6 Plt Count 503 H MPV 9.0 Immature Gran % 0.0 Neutrophils % 72.0 Lymphocytes % 14.0 Atypical Lymphs % 1 Monocytes % 11.0 Eosinophils % 2.0 Basophils % 0.0 Nucleated RBC % 0.0 Absolute Neutrophils 11.64 H Absolute Lymphocytes 2.42 Absolute Monocytes 1.78 H Absolute Eosinophils 0.32 Absolute Basophils 0.00 RBC Morphology Normal ESR 94 H VBG Lactate 0.7 Sodium 137 Potassium 3.9 Chloride 99 Carbon Dioxide 27.6 Anion Gap 10.4 BUN 17 Creatinine 1.0 Est GFR (CKD-EPI 2020) 62.13 Glucose 107 H Calcium 9.8 Total Bilirubin 0.2 AST 14 L ALT 19 Alkaline Phosphatase 79 C-Reactive Protein 9.49 H Total Protein 8.1 Albumin 2.9 L Lipase 29 Procalcitonin < 0.1 Last Vital Signs Temp 97.5 F L 09/15/23 14:48 Pulse 91 H 09/15/23 18:30 Resp 15 09/15/23 14:48 BP 140/59 L 09/15/23 18:30 Pulse Ox 95 09/15/23 17:08 Time Spent Time spent with Patient: 55-74 minutes Time was spent: preparing to see the patient(eg.review tests), obtaining and/or reviewing separately otained hiistory, referring, communicating with other health manager of care, indepentently interpreting results, counseling the patient and care coordination
--- NOTE | 2023-09-15 19:50 | ANES.PREOP_ITS ---
General Info Date of Service Date Performed: 09/15/23 Height: 5 ft 1 in Weight: 65.317 kg Body Mass Index (BMI): 27.1 Meds Allergies and Home Medications Allergies Allergy/AdvReac Type Severity Reaction Status Date / Time No Known Allergies Allergy Verified 09/15/23 18:47 Home Medication Medication Instructions Recorded fluoxetine 40 mg capsule 40 mg PO DAILY 07/16/21 multivitamin 1 tab PO DAILY 07/16/21 spironolactone 25 mg tablet 25 mg PO DAILY 07/16/21 metoclopramide HCl 5 mg tablet 5 mg PO QACHS PRN nausea and 12/14/21 (Reglan) vomiting #10 tabs atorvastatin 40 mg tablet 40 mg PO HS 12/24/21 metoprolol tartrate 50 mg tablet 50 mg PO BID 12/29/21 aspirin 81 mg tablet,delayed 81 mg PO DAILY 02/01/22 release (Adult Aspirin Regimen) potassium citrate 99 mg capsule 99 mg PO DAILY 02/01/22 letrozole 2.5 mg tablet mg 09/15/23 Current Visit Medications: Current Medications Generic Name Dose Route Start Last Admin Trade Name Freq PRN Reason Stop Dose Admin Enoxaparin Sodium 40 mg 09/15/23 20:00 Enoxaparin 40 Mg/0.4 Ml Syr SC Q24H JUDY Sodium Chloride 1,000 mls @ 75 mls/hr 09/15/23 19:30 Saline 1000ml Bag IV INFUSION JUDY Piperacillin Sod/Tazobactam 50 mls @ 100 mls/hr 09/15/23 19:30 Sod 3.375 gm/ Sodium Chloride IVPB Q6H JUDY IV Miscellaneous Supplies 1 each 09/15/23 19:30 Iv Access IV DIRECTED JUDY Iohexol 100 ml 09/15/23 17:30 09/15/23 17:17 Omnipaque 350 Mg/Ml 100 Ml Btl IJ 10/15/23 23:59 100 ml DIRECTED JUDY Administration Morphine Sulfate 2 mg 09/15/23 19:24 Morphine 2 Mg/Ml Syr IVP Q1H PRN PRN Ondansetron HCl 4 mg 09/15/23 19:24 Ondansetron 4 Mg/2 Ml Vial IVP Q4H PRN PRN Sodium Chloride 50 ml 09/15/23 17:15 09/15/23 17:13 Normal Saline - Diluent 50 Ml Vial IJ 50 ml .FOR DI USE JUDY Administration Sodium Chloride 0 ml 09/15/23 17:18 09/15/23 17:19 Normal Saline Flush 10 Ml Syr IVP 10 ml PRN PRN Administration Sodium Chloride 0 ml 09/15/23 19:24 Normal Saline Flush 10 Ml Syr IVP PRN PRN Sodium Chloride 0 ml 09/15/23 20:00 Normal Saline Flush 10 Ml Syr IVP BID JUDY Sodium Chloride 0 ml 09/15/23 19:24 Normal Saline 10 Ml Vial IJ DIRECTED PRN PFSH Active Problems Active Problems: Problem Status Onset Code Peristomal abscess, ileostomy K94.12 Intra-abdominal abscess K65.1 Breast cancer C50.919 Crohn's disease K50.90 Colostomy infection K94.02 Cholelithiasis K80.20 Elevated LFTs R79.89 Bilateral carotid bruits R09.89 Urinary tract infection N39.0 Medical History Medical History (Updated 09/15/23 @ 19:49 by Nieves Harrell DO) Diverticulitis Tobacco use Hypertension Hyperlipidemia Vitamin D deficiency Anxiety disorder Shingles Pancreatic lesion Surgical History Surgical History (Updated 02/25/22 @ 13:45 by Alyssia Willingham RN) History of colonoscopy H/O colectomy Tobacco Smoking/Tobacco Use Status: Current-Occasional Tobacco Type: cigarettes Alcohol Alcohol Intake: never Substance Use Substance use: Never Substance use type: does not use Vital Signs and Lab Results Vital Signs Most Recent Vital Signs in EMR: Most Recent Vital Signs Temp Pulse Resp BP Pulse Ox 36.4 C L 93 H 15 126/58 L 95 09/15/23 14:48 09/15/23 19:44 09/15/23 14:48 09/15/23 19:44 09/15/23 17:08 Lab Results 09/15/23 15:30 09/15/23 15:30 Blood Type / Crossmatch: 2 No Data to Display Complete Blood Count: 2 White Blood Count 16.16 10^3/uL (4.4-10.8) H 09/15/23 15:30 Red Blood Count 4.81 10^6/uL (3.93-5.22) 09/15/23 15:30 Hemoglobin 12.6 g/dL (11.2-15.7) 09/15/23 15:30 Hematocrit 39.3 % (36.0-46.0) 09/15/23 15:30 Platelet Count 503 10^3/uL (130-400) H 09/15/23 15:30 Venous Blood Lactate 0.7 mmol/L (0.6-1.4) 09/15/23 15:30 Complete Metabolic Panel: 2 Sodium 137 mmol/L (136-145) 09/15/23 15:30 Potassium 3.9 mmol/L (3.5-5.1) 09/15/23 15:30 Chloride 99 mmol/L (98-107) 09/15/23 15:30 Carbon Dioxide 27.6 mmol/L (21.0-32.0) 09/15/23 15:30 BUN 17 mg/dL (7-18) 09/15/23 15:30 Creatinine 1.0 mg/dL (0.55-1.02) 09/15/23 15:30 Est GFR (CKD-EPI 2020) 62.13 (mL/min/1.73m2) 09/15/23 15:30 Calcium 9.8 mg/dL (8.5-10.1) 09/15/23 15:30 Albumin 2.9 g/dL (3.4-5.0) L 09/15/23 15:30 Glucose 107 mg/dL (74-106) H 09/15/23 15:30 C-Reactive Protein 9.49 mg/dL (<or=0.5) H 09/15/23 15:30 Liver Function Panel: 2 Alanine Aminotransferase (ALT/SGPT) 19 U/L (14-59) 09/15/23 15: 30 Aspartate Amino Transf (AST/SGOT) 14 U/L (15-37) L 09/15/23 15: 30 Coagulation Panel: 2 No Data to Display Cardiac Panel: 2 No Data to Display Arterial Blood Gas: 2 No Data to Display Venous Blood Gas: 2 No Data to Display Pancreas Panel: 2 Lipase 29 U/L (16-77) 09/15/23 15:30 Thyroid Panel: 2 No Data to Display Infectious Disease: 2 No Data to Display Blood Cultures: 2 No Data to Display Toxicology Panel: 2 No Data to Display Anesthesia Assessment and Plan Anesthesia History Personal History: No History of Anesthesia Complications Family History: No Family History of Anesthesia Complications Exercise Tolerance Exercise Tolerance: Metabolic Equivalents>4 Pertinent Negatives Pertinent Negatives: No Symptoms of GERD, No Major Cardiovascular Symptoms or Complaints, No Major Pulmonary Symptoms or Complaints and No History of CVA/TIA Cardiac & Pulmonary Exam Cardiac Exam: Normal S1/S2 Heart Sounds Pulmonary Exam: Clear Bilateral Breath Sounds Implantable Cardiac Device Does patient have a Pacemaker or an ICD?: No Airway Exam Known Difficult Airway: No Mallampati Class: 3 Mouth Opening: Narrow (< 3cm) Thyromental Distance: Greater than 3 cm Neck Range of Motion: Full ROM Neck Circumference: Normal Teeth Condition: Normal Dentition (Patient reports. When she opened mouth unable to visualize teeth) ASA Classification ASA Score: ASA 3 Emergency Case?: No NPO Status NPO Status: NPO Clears >2 hours, Solids >8 hours Anesthesia Plan Resuscitation Status: Full Code Anesthesia Technique: General Anesthesia Airway Planned: LMA Monitors Used: Standard Monitors
[2023-09-15] MEDS: PIPERACILLIN/TAZO 3.375 GM in Normal Saline 50 ML IVPB (20:00)
[2023-09-15] MEDS: Normal Saline 1,000 ML 75 ML IV ×2 (20:30→23:25)
--- NOTE | 2023-09-15 21:32 | W.PM.OP ---
Date of service: 09/15/23 Time of Service: 21:32 Operative Note Operative Note DATE OF PROCEDURE: 09/15/23 PRE-OP DIAGNOSIS: Parastomal abscess, history of Crohn's disease, history of permanent left lower quadrant colostomy POST-OP DIAGNOSIS: same PROCEDURE: Incision and drainage of peristomal abscess SURGEON: Nieves Harrell INFECTIOUS DISEASES PHYSICIAN: Jazmin Munoz ANESTHESIA TYPE: Local By Surgeon and General LMA/ETT Refer to Anesthesia Record ESTIMATED BLOOD LOSS: 10 PATHOLOGY: other (Cultures of peristomal abscess cavity) COMPLICATIONS: None Patient was transported to: PACU Patient's condition: stable Indications: This patient is a 68-year-old female with a permanent left lower quadrant colostomy. She presented to the emergency department with complaints of peristomal pain, swelling and erythema for approximately 2 weeks. She has a history of Crohn's disease. She has been off mesalamine for approximately 1 month. Further evaluation in the emergency department demonstrated leukocytosis of 16,000. CT scan demonstrated peristomal abscess confined to subcutaneous tissue. Surgical incision and drainage of the abscess was recommended. After risk and benefits of procedure were explained to the patient, informed consent was obtained and placed on chart. Findings: Left lower quadrant granulomatous stoma with purulent drainage. Abscess cavity was located lateral to the stoma. There was no evidence of intra abdominal entry. There is no evidence of bowel disruption. A Bradford drain was placed in a pocket superior to the main abscess pocket and brought out laterally. The wound was copiously irrigated and packed with half inch iodoform packing. Procedure Description: The patient was brought to the operating room where she was placed on the operating table in the supine position. After adequate general anesthesia was administered by the department of anesthesia, a surgical marking pen was used to outline the stoma appliance as to avoid incision where the stoma appliance is applied. The abdomen was prepped and draped in standard sterile fashion. patient already treated with preop antibiotics. A timeout was performed confirming the site of surgery. Upon visual inspection of the left lower quadrant ostomy it was noted to have heavily granulated tissue. There was purulent drainage from the os of the stoma. The ostomy was gently manually digitalized. There were no masses or strictures appreciated. There is no evidence of bowel disruption. Approximately 5 cm lateral to the mucocutaneous junction, the skin and subcutaneous tissue were anesthetized with local anesthetic. A #15 blade scalpel was used to make skin incision. Immediately upon making skin incision, there was a copious amount of purulent drainage. Copious drainage was suctioned. Retractors were placed. The wound was gently manually digitalized to break up loculations. The wound was then copiously irrigated with 3 L of saline solution. Cultures were obtained. Hemostasis was checked. The stoma again was manually digitalized. This was done to confirm that there was no bowel disruption during our procedure. The patient was noted to have an abscess pocket superior to the main abscess cavity. A Pillo drain was placed in the superior pocket and brought out through a stab incision. The Pillo drains was secured with a 2-0 nylon. The abscess cavity was packed with half-inch iodoform packing. The patient was then cleaned and dried. Sterile dressings were applied. Ostomy appliance was applied. The needle, sponge, and instrument counts were all correct at the end of the procedure. The patient tolerated procedure well and was taken to recovery in good condition.
--- NOTE | 2023-09-15 22:10 | W.ANESPOSTOP ---
Postoperative Evaluation Date, Time and Location Date Performed: 09/15/23 Time Performed: 22:10 Patient Location: PACU Vital Signs Most Recent Imported Vital Signs: Most Recent Vital Signs Temp Pulse Resp BP Pulse Ox 36.8 C 85 22 113/42 L 94 09/15/23 21:54 09/15/23 21:54 09/15/23 21:54 09/15/23 21:54 09/15/23 21:54 Pain Score Most Recent Pain Score: Most Recent Pain Score Pain Level 0 09/15/23 21:54 Assessment Mental Status: Awake (Alert & Oriented to Patient Baseline) Airway and Respiratory Function: Patent airway with normal (patient baseline) respiratory exam Cardiovascular Function: Hemodynamically Stable Hydration Status: Adequately Hydrated Nausea & Vomiting: No Nausea or Vomiting Pain: Pt. Denies Any Pain Peripheral Nerve Block: Patient did not receive a nerve block
[2023-09-15] MEDS: MORPHine 4 MG/ML SYR IVP (23:25)
[2023-09-16 00:15] VITALS: BP 112/58; PULSE 68; RESP 20; TEMP 35.5; O2SAT 95
[2023-09-16] MEDS: PIPERACILLIN/TAZO 3.375 GM in Normal Saline 50 ML IVPB ×4 (02:11→20:46)
[2023-09-16] MEDS: MORPHine 4 MG/ML SYR IVP ×2 (05:25→20:47)
[2023-09-16 06:39] LABS: HCT 38.4 % (36.0-46.0); HGB 12.3 g/dL (11.2-15.7); MCH 26.5 pg (27.0-33.0); MCV 83 fL (80-95); MPV 9.2 fL (8.0-11.0); Platelet Count 471 10^3/uL (130-400); RBC 4.65 10^6/uL (3.93-5.22); RDW 13.9 % (11.7-14.6); RDW-SD 41.8 fL; WBC 14.54 10^3/uL (4.4-10.8)
[2023-09-16 07:02] LABS: ALT 15 U/L (14-59); AST 10 U/L (15-37); Albumin 2.5 g/dL (3.4-5.0); Alkaline Phosphatase 71 U/L (46-116); Anion Gap 11.7 mmol/L (3-11); BUN 13 mg/dL (7-18); Bilirubin, Total 0.2 mg/dL (0.2-1.0); CO2 24.3 mmol/L (21.0-32.0); CREATININE 0.7 mg/dL (0.55-1.02); Calcium 8.8 mg/dL (8.5-10.1); Chloride 103 mmol/L (98-107); Estimated GFR 95.32 (mL/min/1.73m2); Glucose 146 mg/dL (74-106); Potassium 4.2 mmol/L (3.5-5.1); Sodium 139 mmol/L (136-145); Total Protein 7.4 g/dL (6.4-8.2)
[2023-09-16] MEDS: oxyCODONE 5 mg/Acetaminophen 325 mg TAB 1 TAB PO ×2 (07:14→13:52)
[2023-09-16 08:03] VITALS: BP 113/59; PULSE 65; RESP 16; TEMP 35.6; O2SAT 91
[2023-09-16] MEDS: Metoprolol 50 MG TAB PO ×2 (08:06→20:46)
[2023-09-16] MEDS: Letrozole 2.5 MG TAB PO (08:06)
[2023-09-16] MEDS: Spironolactone 25 MG TAB PO (08:06)
[2023-09-16] MEDS: Normal Saline Flush 10 ML SYR IVP (08:07)
--- NOTE | 2023-09-16 08:56 | PDOC.CMIN ---
Date of service: 09/16/23 Care Management Initial Assmt Initial Assessment REASON FOR HOSPITALIZATION:: Colitis PREVIOUS FUNCTIONAL STATUS/SOCIAL/FAMILY SUPPORTS:: Monse lives in [place] with her daughter, Shirin. 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 She is independent at baseline. CURRENT FUNCTIONAL STATUS:: Monse lying in bed talking with daughter and her boyfriend when CM arrived. Monse reports feeling better and looking forward to potential discharge tomorrow per surgeon. ADVANCE DIRECTIVES:: None on file. Has patient been provided with info about the portal/API?: Yes Did the patient sign up for the portal?: Yes CODE STATUS:: Full Code INSURANCE COVERAGE / FINANCIAL ISSUES:: Medicare Part A & B [employer] Medicare Supplement Ins CURRENT HOME/COMMUNITY SERVICES/EQUIPMENT:: No services/equipment PRIMARY CARE PHYSICIAN:: Sue Sandoval POTENTIAL DISCHARGE NEEDS:: Evaluations for further needs, follow up appointments. PATIENT/FAMILY EDUCATION NEEDS:: Review discharge instructions and limitations, discussion of self care needs including Ask Me Three ANTICIPATED BARRIERS TO DISCHARGE:: None. TRANSPORTATION:: Via private vehicle by family PLAN:: Anticipate Monse will return home once medically cleared. Her daughter will drive her home via private vehicle when ready. She will follow up with her PCP and discharge plan of care. CM will continue to follow. PFSH All Active Problems Aortic atherosclerosis (Acute) Pre-diabetes (Acute) a1c 6.5 10/02 Abscess of colostomy (Acute) Intra-abdominal abscess (Acute) Crohn's disease (Chronic) Colostomy infection (Acute) Cholelithiasis (Acute) Bilateral carotid bruits (Acute) Medical History Breast cancer Diverticulitis Tobacco use Hypertension Hyperlipidemia Vitamin D deficiency Anxiety disorder Shingles Pancreatic lesion Surgical History History of colonoscopy H/O colectomy Social History Smoking/Tobacco Use Status: Current-Occasional Tobacco Type: cigarettes Smoking risk assessment performed?: Yes Alcohol Intake: current Alcohol Intake frequency: holidays/special occasions only Alcohol type: wine Drug use: Never Substance use type: does not use Housing: house Do you feel safe at home: Yes Do you feel safe in your relationship?: Yes SDOH(Care Management) Screening Will the Patient Participate in the Screening?: Yes Do you worry about having a steady place to live?: no Problems where you live: no known problems In the past 12 months, have you had to go without electric, gas, oil or water in your home?: no Have you or anyone in your house had to go without enough food to eat?: no Has lack of transportation kept you from medical appointments or from doing things needed for daily living?: no Has anyone in your support network made you feel unsafe for any reason?: no
[2023-09-16] MEDS: Enoxaparin 40 MG/0.4 ML SYR SC (09:07)
--- NOTE | 2023-09-16 11:55 | PHA.REVIEW2 ---
Pharmacy Admission Review Admission Clinical Review Admission Pharmacy Review: Peristomal abscess, ileostomy (Acute) No Known Allergies Allergy (Verified 09/15/23 18:47) Resuscitation Status Full Code Height 5 ft 1 in Weight 65.3 kg Comments Comments/Follow Ups: Surgical intervention for abscess of ileostomy this morning, Afebrile, stable, pain controlled, watch for restart specifically of Fluoxetine post-op Pharmacy Admission Review Renal Dosing Renal Dosing: BUN 13 mg/dL (7-18) 09/16/23 06:22 Creatinine 0.7 mg/dL (0.55-1.02) 09/16/23 06:22 CrCl~ 47 ml/min Anticoagulation Anticoagulation: Hgb 12.3 g/dL (11.2-15.7) 09/16/23 06:22 Hct 38.4 % (36.0-46.0) 09/16/23 06:22 Plt Count 471 10^3/uL (130-400) H 09/16/23 06:22 Creatinine 0.7 mg/dL (0.55-1.02) 09/16/23 06:22 History of chronic bloody stools d/t Chron's disease DVT Prophylaxis: Reviewed Medications: Enoxaparin (This was given before surgical case today) Opiate Usage Scheduled Bowel Reg ordered if on Opiates?: No (Ileostomy, went to the OR) Relevant Labs Relevant Labs: ESR 94 mm/hr (0-30) H 09/15/23 15:30 Sodium 139 mmol/L (136-145) 09/16/23 06:22 Potassium 4.2 mmol/L (3.5-5.1) 09/16/23 06:22 Chloride 103 mmol/L (98-107) 09/16/23 06:22 C-Reactive Protein 9.49 mg/dL (<or=0.5) H 09/15/23 15:30 Platelets elevated 471, H/H 12.3/38.4 Electrolytes, C-Reactive P, ESR: Reviewed (ESR 94) Cardiac Review BP, HR, EF%: Reviewed (BP 113/59, HR 65) Home Meds Home Med List reviewed: Reviewed Relevent Home Meds Not ordered & why?: Asa, Fluoxetine (will f/u post-op), Reglan, MVI, Potassium Pharmacy Antibiotic Review Relevant Labs: Relevant Labs 09/15/23 15:30 C-Reactive Protein 9.49 H Procalcitonin < 0.1 Pharmacy Antibiotic Activity: Reviewed, no change (Zosyn day #2 for abscess) Comments Comments/Follow Ups: Surgical intervention for abscess of ileostomy this morning, Afebrile, stable, pain controlled, watch for restart specifically of Fluoxetine post-op
--- NOTE | 2023-09-16 12:21 | W.PM.PROGNOT ---
Date of Service Date of service: 09/16/23 Time of Service: 10:45 Subjective Subjective Interval history since last seen: Patient seen and examined on morning rounds. Now POD#1, s/p I&D of peristomal abscess. Patient reports feeling better. Exam Narrative Exam Narrative: GEN: Patient seen in her room on regular nursing floor. Alert, comfortable, tolerating PO diet. HEENT: non-icteric. EOMI, neck supple. ABDOMEN: soft, non-tender, BS are present, there is no guarding and no rebound. Changed dressings, Wound intact, [place] drain in place. place fresh ABD dressing. EXT: there is no calf pain. LABS: Reviewed labs. WBC\: 16.1 --> 14.5 IMP/PLAN: (1) POD#1, s/p I&D of peristomal abdominal wall abscess (2) Doing well, tolerating PO diet (3) Continue IVPB Zosyn (4) Will leave [place] drain in for now. (5) Possibly home tomorrow. Sarbjit De Leon, D.O. Objective Last Vital Signs Temp 96.1 F L 09/16/23 08:03 Pulse 65 09/16/23 08:03 Resp 16 09/16/23 08:03 BP 113/59 L 09/16/23 08:03 Pulse Ox 91 L 09/16/23 08:03 Laboratory Results - last 24 hr 09/15/23 09/15/23 09/15/23 15:30 23:18 23:21 WBC 16.16 H Cancelled RBC 4.81 Cancelled Hgb 12.6 Cancelled Hct 39.3 Cancelled MCV 82 Cancelled MCH 26.2 L Cancelled MCHC 32.1 Cancelled RDW 13.6 Cancelled Plt Count 503 H Cancelled MPV 9.0 Cancelled Immature Gran % 0.0 Neutrophils % 72.0 Lymphocytes % 14.0 Atypical Lymphs % 1 Monocytes % 11.0 Eosinophils % 2.0 Basophils % 0.0 Nucleated RBC % 0.0 Absolute Neutrophils 11.64 H Absolute Lymphocytes 2.42 Absolute Monocytes 1.78 H Absolute Eosinophils 0.32 Absolute Basophils 0.00 RBC Morphology Normal ESR 94 H VBG Lactate 0.7 Sodium 137 Potassium 3.9 Chloride 99 Carbon Dioxide 27.6 Anion Gap 10.4 BUN 17 Creatinine 1.0 Est GFR (CKD-EPI 2020) 62.13 Glucose 107 H Calcium 9.8 Total Bilirubin 0.2 Cancelled Conjugated Bilirubin Cancelled AST 14 L Cancelled ALT 19 Cancelled Alkaline Phosphatase 79 Cancelled Ammonia Cancelled C-Reactive Protein 9.49 H Total Protein 8.1 Cancelled Albumin 2.9 L Cancelled Lipase 29 Procalcitonin < 0.1 09/16/23 06:22 WBC 14.54 H RBC 4.65 Hgb 12.3 Hct 38.4 MCV 83 MCH 26.5 L MCHC 32.0 RDW 13.9 Plt Count 471 H MPV 9.2 Immature Gran % Neutrophils % Lymphocytes % Atypical Lymphs % Monocytes % Eosinophils % Basophils % Nucleated RBC % Absolute Neutrophils Absolute Lymphocytes Absolute Monocytes Absolute Eosinophils Absolute Basophils RBC Morphology ESR VBG Lactate Sodium 139 Potassium 4.2 Chloride 103 Carbon Dioxide 24.3 Anion Gap 11.7 H BUN 13 Creatinine 0.7 Est GFR (CKD-EPI 2020) 95.32 Glucose 146 H Calcium 8.8 Total Bilirubin 0.2 Conjugated Bilirubin AST 10 L ALT 15 Alkaline Phosphatase 71 Ammonia C-Reactive Protein Total Protein 7.4 Albumin 2.5 L Lipase Procalcitonin Time Spent with Patient Time Spent with Patient: <25 minutes Time was spent: preparing to see the patient(eg.review tests) and indepentently interpreting results
--- NOTE | 2023-09-16 13:16 | CHAPLAIN ---
Monse was in bed when I visited. She was pleasant, but did not seem interested in further conversation. Shes said she's in touch with family. I explained my role and offered support.
[2023-09-16] MEDS: Normal Saline 1,000 ML 75 ML IV (13:53)
[2023-09-16 15:15] VITALS: BP 106/58; PULSE 63; RESP 15; TEMP 36.5; O2SAT 91
[2023-09-16] MEDS: Atorvastatin 40 MG TAB PO (20:46)
[2023-09-16 23:19] VITALS: BP 109/65; PULSE 63; RESP 15; TEMP 36.3; O2SAT 94
[2023-09-17] MEDS: PIPERACILLIN/TAZO 3.375 GM in Normal Saline 50 ML IVPB ×2 (01:55→07:37)
[2023-09-17] MEDS: Normal Saline 1,000 ML 75 ML IV (05:48)
[2023-09-17 07:20] VITALS: BP 102/54; PULSE 52; RESP 16; TEMP 35.1; O2SAT 93
[2023-09-17] MEDS: Metoprolol 50 MG TAB PO (07:38)
[2023-09-17] MEDS: Spironolactone 25 MG TAB PO (07:38)
[2023-09-17] MEDS: Letrozole 2.5 MG TAB PO (07:38)
[2023-09-17] MEDS: Normal Saline Flush 10 ML SYR IVP (07:39)
[2023-09-17] MEDS: Enoxaparin 40 MG/0.4 ML SYR SC (09:46)
--- NOTE | 2023-09-17 11:33 | W.PM.PROGNOT ---
Date of Service Date of service: 09/17/23 Time of Service: 11:00 Subjective Subjective Interval history since last seen: Patient seen and examined on rounds today. Feeling good. Ready to go home. Scheduled for infusion of Crohn's medication on this at [facility]. Tolerating PO intake. Colostomy is functional. WBC has decreased (16.1 --> 14.5 yesterday). Exam Narrative Exam Narrative: GENERAL: non-toxic appearing, comfortable, no acute distress. HENMT Other: Non-icteric, neck supple. Oral mucosa moist. Eyes Other: EOMI. Neck Other: Supple GI Other: Soft, non-tender, BS are present, there is no guarding and no rebound. Removed [place] drain and Iodoform wick. Instructed patient regarding local wound care. Extrem Other: There is no calf pain. Psych Other: Good-spirited. Objective Last Vital Signs Temp 95.2 F L 09/17/23 07:20 Pulse 52 L 09/17/23 07:20 Resp 16 09/17/23 07:20 BP 102/54 L 09/17/23 07:20 Pulse Ox 93 09/17/23 07:20 Objective Narrative Objective Narrative: (1) POD#2, s/p I&D of peristomal abscess. (2) Cx reported Gram positive cocci (3) Removed [place] drain and Iodoform wick (4) Will discharge home today with Rx for 7 days of Augmentin 875mg PO BID. (5) Follow-up in General Surgery Office in about 10-14 days; call for an appointment. Time Spent with Patient Time Spent with Patient: 25-34 minutes Time was spent: preparing to see the patient(eg.review tests), indepentently interpreting results, counseling the patient and care coordination
--- NOTE | 2023-09-17 12:01 | DSE_ITS ---
Date of service: 09/17/23 Time of Service: 12:00 DS: Diagnosis Discharge Diagnosis (1) Peristomal abscess, ileostomy: Status: Acute Asessment and Plan: (1) POD#2, s/p I&D of peristomal abscess. (2) IVPB Zosyn in-hospital, will send home with Rx for [id number] PO BID x 7 days (#14) (3) Follow-up in General Surgery Office in about 10-14 days; call for an appointment. (4) Resume all usual home meds and diet. (5) Keep scheduled appointment with [facility] for September 21 to have Crohn's Med infusion. Discharge Plan Disposition Patient Disposition: Home Condition: Improving Discharge Details Reason For Visit: Parastomal Abscess Admit Date/Time: 09/15/23 22:05 Admit Provider: Nieves Harrell Attending Provider: Nieves Harrell Primary Care Provider: Sue Sandoval [facility] Course Hospital Course: Patient admitted via ED, taken to O.R. by Dr. Harrell where patient underwent I&D of LLQ peristomal abscess on 09/15/2023. Patient kept on IVF and IVPB Zosyn. Had uneventful post-operative course. WBC fell 16,100 to 14,500. She was afebrile, tolerating PO, colostomy remained functional, was voiding on her own, and wished to be discharged to home. She was given Rx for 7 days of PO Augmentin, was to take OTC Tylenol or Advil PRN pain, was to keep her scheduled appointment at the [facility] for September 21 to begin Crohn's Med infusion. Patient was instructed to follow-up at the General Surgery office and was to call for an appointment to be seen in about 10-14 days. Home Meds and New Rx's Prescriptions: New amoxicillin-pot clavulanate 875-125 mg tablet 1 tab PO BID Qty: 14 0RF Rx Instructions: Augmentin 875mg one PO BID x 7days; finish all med Continued multivitamin Tablet 1 tab PO DAILY spironolactone 25 mg tablet 25 mg PO DAILY fluoxetine 40 mg capsule 40 mg PO DAILY aspirin [Adult Aspirin Regimen] 81 mg tablet,delayed release (DR/EC) 81 mg PO DAILY potassium citrate 99 mg capsule 99 mg PO DAILY atorvastatin 40 mg tablet 40 mg PO HS metoclopramide HCl [Reglan] 5 mg tablet 5 mg PO QACHS PRN (Reason: nausea and vomiting) Qty: 10 0RF metoprolol tartrate 50 mg tablet 50 mg PO BID Patient Comments: TAKE ONE TABLET BY MOUTH TWICE A DAY letrozole 2.5 mg tablet 2.5 mg PO DAILY Patient Comments: TAKE ONE TABLET BY MOUTH EVERY DAY Discharge Instructions Additional Instructions: (1) Keep area clean and dry (2) Use clean dry dressing to site daily (3) Resume all usual home meds and diet (4) No tub bathing, no swimming (5) May shower, pat area dry. (6) Expect some ongoing drainage for a little while. (7) Keep scheduled appointment for September 21 at the [facility] to begin Crohn's Med infusion. (8) Rx: Augmentin 875mg one by mouth twice daily for 7 days (9) [id number] Tylenol or Advil as needed for pain. (10) Follow-up at the General Surgery Office in about 10-14 days; call for an appointment, Activity:: Activity as Tolerated Equipment/Supplies:: Wound dressings Diet:: As Tolerated DS: Summary Time Spent with Patient providing and/or coordinating discharge services: Greater than 30 minutes Status at Discharge Functional status at discharge: independent ambulation Overall status at discharge: patient is progressing back to baseline Mental Status: mental status grossly normal Speech and Movement: speech and movement normal Mood: congruent mood Affect: normal affect Quality:SDOH Health Related Social Needs: No Data to Display Exam Narrative Exam Narrative: Doing well POD#2, s/p I&D LLQ peristomal abscess. Const Other: GEN: non-toxic appearing Eyes Other: Non-icteric Neck Other: Supple Resp Other: Clear GI Other: Soft, Non-tender, BS are present, there is no guarding and no rebound. Removed [place] drain and Iodoform wick. Placed fresh dressings. Instructed patient. Extrem Other: There is no calf pain. Psych Mental Status: mental status grossly normal Speech and Movement: speech and movement normal Mood: congruent mood Affect: normal affect Other: Good-spirited. DS: Data Vitals/I&O Vitals and I&O: Vital Signs Temperature 95.2 F L 09/17/23 07:20 Temperature Source Tympanic 09/17/23 07:20 Pulse 52 L 09/17/23 07:20 Pulse Rhythm Regular 09/17/23 07:30 Respiratory Rate 16 09/17/23 07:20 Respiratory Effort Normal, Non-Labored 09/17/23 07:30 Respiratory Depth Normal 09/17/23 07:30 Respiratory Pattern Normal 09/17/23 07:30 Blood Pressure 102/54 L 09/17/23 07:20 Blood Pressure Mean 74 09/15/23 20:16 Blood Pressure Position Sitting 09/15/23 14:48 Pulse Oximetry 93 09/17/23 07:20 Respiratory End-tidal CO2 30 09/15/23 21:54 Oxygen Delivery Method Room Air 09/17/23 07:20 Oxygen Flow Rate 0 09/17/23 07:20 Pain Level 1 09/17/23 07:30 Comment BP called over radio 09/17/23 07:20 Intake & Output 09/16/23 09/17/23 09/17/23 23:59 11:59 23:59 Intake Total 1100 / 1350 1050 / 1050 Balance 1100 / 950 1050 / 1050 Intake: IV 1100 / 1200 1050 / 1050 Other: Urine Appearance Clear Comment voids independently Voiding Methods Toilet Data Completed and Pending Completed studies during hospitalization [Text1]: Cx: Gram positive cocci Labs on day of discharge: 09/15/23 21:18 Abdomen Anaerobic Culture - Pending Preliminary micro results at discharge 09/15/23 21:18 Abscess Culture - Preliminary Abdomen Gram Positive Ragini 09/15/23 21:18 Anaerobic Culture - Pending Abdomen Additional Comments Additional comments: See home going instructions. Patient to follow-up in General Surgery Office in about 10-14 days, instructed to call office for an appointment. PFSH All Active Problems (Updated 09/15/23 @ 19:49 by Nieves Harrell DO) Peristomal abscess, ileostomy (Acute) Intra-abdominal abscess (Acute) Breast cancer (Chronic) Crohn's disease (Chronic) Colostomy infection (Acute) Cholelithiasis (Acute) Elevated LFTs (Acute) Bilateral carotid bruits (Acute) Urinary tract infection (Acute) Medical History (Updated 09/15/23 @ 19:49 by Nieves Harrell DO) Diverticulitis Tobacco use Hypertension Hyperlipidemia Vitamin D deficiency Anxiety disorder Shingles Pancreatic lesion Surgical History (Updated 02/25/22 @ 13:45 by Alyssia Willingham RN) History of colonoscopy H/O colectomy Social History Smoking/Tobacco Use Status: Current-Occasional Tobacco Type: cigarettes Smoking risk assessment performed?: Yes Alcohol Intake: never Drug use: Never Substance use type: does not use Housing: house Do you feel safe at home: Yes Do you feel safe in your relationship?: Yes Time Spent with Patient Time Spent with Patient: <45 minutes Time was spent: preparing to see the patient(eg.review tests), ordering medications,tests, procedures, indepentently interpreting results and counseling the patient
== END 2023-09-17 13:35 | disposition home or self-care (01) | DRG 394 ==
LOC: ER 19:44 → SUR 20:36 → MS 22:25
PROVIDERS: Admitting Provider Surgery; Emergency Provider Physician Assistant; PCP Family Medicine; Visit Provider Surgery
PROC: 0J9800Z Drainage of Abdomen Subcutaneous Tissue and Fascia with Drainage Device, Open Approach (ICD-10-PCS; CPT 10061; principal; 2023-09-15 19:55)
DX: K94.12 Enterostomy infection (principal); K50.90 Crohn's disease, unspecified, without complications; L02.211 Cutaneous abscess of abdominal wall; I10 Essential (primary) hypertension; F17.210 Nicotine dependence, cigarettes, uncomplicated; E78.5 Hyperlipidemia, unspecified; E55.9 Vitamin D deficiency, unspecified; F41.9 Anxiety disorder, unspecified; C50.912 Malignant neoplasm of unspecified site of left female breast
CPT/HCPCS: 10061; 00123; 36415; 80053; 80076; 83690; 84145; 85027; 85652; 87077; 96365; 99222; 99285; J1650; 74177; 82140; 83605; 85025; 86140; 87070; 87075; 87186; 87205; J1100; J2001; J2250; J2270; J2405; J2543; J2704; J3010; J3490

== ENCOUNTER → 2023-10-03 13:48 | Outpatient (CLI) | payer MEDICARE, OTHER, SELFPAY ==
--- NOTE | 2023-10-03 11:24 | DI.CT_ITS ---
Exam(s) CT ABDOMEN PELVIS W EXAM: CT ABDOMEN PELVIS W CLINICAL HISTORY: K65.1,K57.92 previous colostomy abscess- does not appear resolv TECHNIQUE: Imaging Protocol: Axial computed tomography images with coronal and sagittal reformatted images were created and reviewed. CONTRAST MATERIAL: Intravenous: Omnipaque 350 Contrast volume:90 mL Oral: yes / no COMPARISON: CT CT ABDOMEN PELVIS W from 12/09/[address] ABDOMEN PELVIS W from 12/27/[address] ABDOMEN PELVIS W from 09/15/2023 FINDINGS: ABDOMEN: Lung Bases: There is dependent atelectasis present. Liver: Normal density. There is a tiny cyst in the right lobe. No suspicious hepatic masses are seen . Portal, Superior Mesenteric, and Splenic Veins: Unremarkable. Gallbladder and Biliary Tract: The gallbladder is contracted. No biliary ductal dilatation is presen t. Pancreas: Normal density, no abnormal calcifications or inflammatory process. Spleen: Normal. Adrenals: No masses seen. Kidneys: Normal size, contour and axis. No radiodense stones or obstructive uropathy. Simple bilatera l renal cysts. No follow-up is recommended. Abdominal Aorta: Abdominal portion non-dilated. Atherosclerotic calcification is present. Bowel: The patient has had a sigmoid colectomy with a left lower quadrant colostomy in place. There is no evidence of obstruction. The oral contrast passes all the way through the bowel. There is a p eristomal hernia containing an unremarkable loop of small bowel. There is no bowel wall thickening. Appendix is unremarkable. Peritoneal Cavity: No ascites, collection or mesenteric inflammatory response. No free air. Lymph Nodes: Within normal limits. Bones: Within normal limits for the patient's age. Soft Tissues: There is a left lower quadrant colostomy. There has been interval decrease in size of the left abdominal wall abscess which now measures 2.1 AP by 4.5 transverse by 5.7 craniocaudad. The abscess lies lateral to the stoma. PELVIS: Bladder: Symmetric distention, no gross wall thickening. Reproductive Organs: Unremarkable as visualized. Lymph Nodes: Within normal limits. Bones: Within normal limits for the patient's age. IMPRESSION: Interval decrease in size in left anterior abdominal wall abscess. It measures 2.1 x 4.5 x 5.7 cm. This compares to 7.4 x 6.7 x 9.2 cm on the prior examination. RADIATION DOSE DELIVERED: 826mGy.cm Total DLP DATA REPOSITORY: All CT scans at this facility are submitted to the National Radiology Data Registry (NRDR) Dose Index Registry (DIR) with the [employer] (ACR). RADIATION OPTIMIZATION: All CT scans at this facility use at least one of these dose optimization te chniques: automated exposure control; mA and/or kV adjustment per patient size (includes targeted exa ms where dose is matched to clinical indication); or iterative reconstruction.
[2023-10-03] MEDS: Barium Sulfate 2% W/V-Berry Smoothie 450 ML BTL PO ×2 (11:31→11:32)
[2023-10-03] MEDS: Normal Saline - Diluent 50 ML VIAL IJ (13:25)
[2023-10-03] MEDS: Omnipaque 350 MG/ML 100 ML BTL 90 ML IJ (13:32)
== END ==
PROVIDERS: PCP Family Medicine; Visit Provider Surgery
DX: K80.20 Calculus of gallbladder without cholecystitis without obstruction (principal); R79.89 Other specified abnormal findings of blood chemistry; K94.02 Colostomy infection
CPT/HCPCS: 36415; 80053; 74177; 82977; 83036; 85025; 86140; J3490

== ENCOUNTER 2023-10-03 13:54 | Outpatient (CLI) | payer MEDICARE, OTHER, SELFPAY ==
[2023-10-03 11:02] LABS: Abs Immature Grans 0.03 10^3/uL (0.0-0.06); Absolute Basophil Count 0.06 10^3/uL (0.0-0.2); Absolute Eosinophil Count 0.48 10^3/uL (0.0-0.7); Absolute Lymphocyte Count 2.31 10^3/uL (1.2-3.4); Basophils % 0.5 %; Eosinophils % 4.4 %; HCT 40.1 % (36.0-46.0); HGB 12.4 g/dL (11.2-15.7); Immature Grans % 0.3 %; MCH 26.1 pg (27.0-33.0); MCHC 30.9 % (32.0-36.0); MCV 84 fL (80-95); MPV 9.1 fL (8.0-11.0); Monocytes % 7.4 %; Neutrophils % 66.4 %; Platelet Count 474 10^3/uL (130-400); RBC 4.75 10^6/uL (3.93-5.22); RDW 15.3 % (11.7-14.6); RDW-SD 46.6 fL; WBC 11.02 10^3/uL (4.4-10.8)
[2023-10-03 11:03] LABS: Absolute Monocyte Count 0.82 10^3/uL (0.1-0.8); Absolute Neutrophil Count 7.32 10^3/uL (1.2-6.7)
[2023-10-03 11:16] LABS: Hemoglobin A1C 6.5 % (<5.7)
[2023-10-03 11:18] LABS: ALT 20 U/L (14-59); AST 12 U/L (15-37); Albumin 3.2 g/dL (3.4-5.0); Alkaline Phosphatase 97 U/L (46-116); Anion Gap 9.4 mmol/L (3-11); BUN 15 mg/dL (7-18); Bilirubin, Total 0.2 mg/dL (0.2-1.0); C-Reactive Protein 4.15 mg/dL (<or=0.5); CO2 29.6 mmol/L (21.0-32.0); CREATININE 0.9 mg/dL (0.55-1.02); Calcium 9.4 mg/dL (8.5-10.1); Chloride 103 mmol/L (98-107); Estimated GFR 70.51 (mL/min/1.73m2); GGT 28 U/L (5-55); Glucose 101 mg/dL (74-106); Potassium 4.5 mmol/L (3.5-5.1); Sodium 142 mmol/L (136-145)
== END 2023-10-03 13:55 | disposition home or self-care (01) ==
LOC: LBO 13:55
PROVIDERS: PCP Family Medicine; Visit Provider Surgery
DX: K80.20 Calculus of gallbladder without cholecystitis without obstruction; R79.89 Other specified abnormal findings of blood chemistry; K94.02 Colostomy infection; K65.1 Peritoneal abscess; I10 Essential (primary) hypertension; E78.5 Hyperlipidemia, unspecified; Z72.0 Tobacco use
CPT/HCPCS: 36415; 80053; 82977; 83036; 85025; 86140

== ENCOUNTER 2023-10-04 12:45 | Observation (INO) | payer MEDICARE, OTHER, SELFPAY ==
[2023-10-04] VITALS (14 sets, daily range): BP systolic 97–149; BP diastolic 44–64; PULSE 62–80; RESP 10–20; TEMP 36.1–36.7; O2SAT 92–97; BMI 27.3
[2023-10-04] MEDS: Gabapentin 300 MG CAP 600 MG PO (13:08)
[2023-10-04] MEDS: Acetaminophen 500 MG TAB 1000 MG PO (13:08)
--- NOTE | 2023-10-04 13:22 | ANES.PREOP_ITS ---
General Info Date of Service Date Performed: 10/04/23 Height: 5 ft 1 in Weight: 65.5 kg Body Mass Index (BMI): 27.3 Surgical Procedure: Operation Date: 10/04/23 14:25 Proposed Procedure Side Surgeon p Debbie Colostomy Abscess Renata Mcmahon, DO Meds Allergies and Home Medications Allergies Allergy/AdvReac Type Severity Reaction Status Date / Time No Known Allergies Allergy Verified 10/04/23 13:04 Home Medication Medication Instructions Recorded fluoxetine 40 mg capsule 40 mg PO DAILY 07/16/21 multivitamin 1 tab PO DAILY 07/16/21 spironolactone 25 mg tablet 25 mg PO DAILY 07/16/21 metoprolol tartrate 50 mg tablet 50 mg PO BID 12/29/21 aspirin 81 mg tablet,delayed 81 mg PO DAILY 02/01/22 release (Adult Aspirin Regimen) potassium citrate 99 mg capsule 99 mg PO DAILY 02/01/22 letrozole 2.5 mg tablet 2.5 mg PO DAILY 09/15/23 vedolizumab 300 mg intravenous 300 mg IV Q8W 10/03/23 solution (Nba) Current Visit Medications: Current Medications Generic Name Dose Route Start Last Admin Trade Name Freq PRN Reason Stop Dose Admin Acetaminophen 1,000 mg 10/04/23 06:00 10/04/23 13:08 Acetaminophen 500 Mg Tab PO 11/02/23 23:59 1,000 mg PREOP JUDY Administration Gabapentin 600 mg 10/04/23 06:00 10/04/23 13:08 Gabapentin 300 Mg Cap PO 11/02/23 23:59 600 mg PREOP JUDY Administration Ringer's Solution 1,000 mls @ 80 mls/hr 10/04/23 06:00 IV 11/02/23 23:59 INFUSION JUDY Ertapenem/Sodium Chloride 1 gm 50 mls @ 100 mls/hr 10/04/23 06:00 / Sodium Chloride IVPB 10/04/23 23:59 PREOP JUDY IV Miscellaneous Supplies 1 each 10/04/23 06:00 Iv Access IV 11/02/23 23:59 DIRECTED JUDY Sodium Chloride 0 ml 10/04/23 06:00 Normal Saline Flush 10 Ml Syr IV 11/02/23 23:59 PRN PRN Sodium Chloride 0 ml 10/04/23 06:00 Normal Saline 10 Ml Vial IJ 11/02/23 23:59 DIRECTED PRN Sterile Water 0 ml 10/04/23 06:00 Water,Injection,Sterile 10 Ml Vial IJ 11/02/23 23:59 DIRECTED PRN PFSH Active Problems Active Problems: Problem Status Onset Code Aortic atherosclerosis I70.0 Pre-diabetes R73.03 Abscess of colostomy K94.02 Intra-abdominal abscess K65.1 Crohn's disease K50.90 Colostomy infection K94.02 Cholelithiasis K80.20 Bilateral carotid bruits R09.89 Medical History Medical History Breast cancer Diverticulitis Tobacco use Hypertension Hyperlipidemia Vitamin D deficiency Anxiety disorder Shingles Pancreatic lesion Surgical History Surgical History History of colonoscopy H/O colectomy Tobacco Smoking/Tobacco Use Status: Current-Occasional Tobacco Type: cigarettes Alcohol Alcohol Intake: current Alcohol intake frequency: holidays/special occasions only Alcohol type: wine Substance Use Substance use: Never Substance use type: does not use Vital Signs and Lab Results Vital Signs Most Recent Vital Signs in EMR: Most Recent Vital Signs Temp Pulse Resp BP Pulse Ox 36.2 C L 80 16 149/64 H 97 10/04/23 12:52 10/04/23 12:52 10/04/23 12:52 10/04/23 12:52 10/04/23 12:52 Lab Results Blood Type / Crossmatch: No Data to Display Complete Blood Count: White Blood Count 11.02 10^3/uL (4.4-10.8) H 10/03/23 10:55 Red Blood Count 4.75 10^6/uL (3.93-5.22) 10/03/23 10:55 Hemoglobin 12.4 g/dL (11.2-15.7) 10/03/23 10:55 Hematocrit 40.1 % (36.0-46.0) 10/03/23 10:55 Platelet Count 474 10^3/uL (130-400) H 10/03/23 10:55 Venous Blood Lactate 0.7 mmol/L (0.6-1.4) 09/15/23 15:30 Complete Metabolic Panel: Sodium 142 mmol/L (136-145) 10/03/23 10:55 Potassium 4.5 mmol/L (3.5-5.1) 10/03/23 10:55 Chloride 103 mmol/L (98-107) 10/03/23 10:55 Carbon Dioxide 29.6 mmol/L (21.0-32.0) 10/03/23 10:55 BUN 15 mg/dL (7-18) 10/03/23 10:55 Creatinine 0.9 mg/dL (0.55-1.02) 10/03/23 10:55 Est GFR (CKD-EPI 2020) 70.51 (mL/min/1.73m2) 10/03/23 10:55 Calcium 9.4 mg/dL (8.5-10.1) 10/03/23 10:55 Albumin 3.2 g/dL (3.4-5.0) L 10/03/23 10:55 Glucose 101 mg/dL (74-106) 10/03/23 10:55 Hemoglobin A1c 6.5 % (<5.7) H 10/03/23 10:55 C-Reactive Protein 4.15 mg/dL (<or=0.5) H 10/03/23 10:55 Liver Function Panel: Alanine Aminotransferase (ALT/SGPT) 20 U/L (14-59) 10/03/23 10: 55 Aspartate Amino Transf (AST/SGOT) 12 U/L (15-37) L 10/03/23 10: 55 Gamma Glutamyl Transpeptidase 28 U/L (5-55) 10/03/23 10:55 Coagulation Panel: No Data to Display Cardiac Panel: No Data to Display Arterial Blood Gas: No Data to Display Venous Blood Gas: No Data to Display Pancreas Panel: Lipase 29 U/L (16-77) 09/15/23 15:30 Thyroid Panel: No Data to Display Infectious Disease: No Data to Display Blood Cultures: No Data to Display Toxicology Panel: No Data to Display Anesthesia Assessment and Plan Anesthesia History Personal History: No History of Anesthesia Complications Family History: No Family History of Anesthesia Complications Exercise Tolerance Exercise Tolerance: Metabolic Equivalents>4 Cardiac & Pulmonary Exam Cardiac Exam: Normal S1/S2 Heart Sounds Pulmonary Exam: Clear Bilateral Breath Sounds Implantable Cardiac Device Does patient have a Pacemaker or an ICD?: No Airway Exam Known Difficult Airway: No Mallampati Class: 3 Mouth Opening: Narrow (< 3cm) Thyromental Distance: Greater than 3 cm Neck Range of Motion: Full ROM Neck Circumference: Normal Teeth Condition: Normal Dentition (Patient reports. When she opened mouth unable to visualize teeth) ASA Classification ASA Score: ASA 2 Emergency Case?: No NPO Status NPO Status: NPO Clears >2 hours, Solids >8 hours Anesthesia Plan Resuscitation Status: Full Code Anesthesia Technique: General Anesthesia Airway Planned: Natural Airway Monitors Used: Standard Monitors Preoperative Comments:: 68 yo female for debbie colostomy abscess I/D. Sig PMHx: HTN (metoprolol, spironolactone), PreDM, Crohn's, anxiety, occ smoker/EtOH. Previous Anes: - I/D abdominal wall, LMA 4, no issues. - colo, no issues.
[2023-10-04] MEDS: Lactated Ringers 1,000 ML 80 ML IV (13:28)
[2023-10-04] MEDS: ERTAPENEM 1 GM in Normal Saline 50 ML IVPB (14:23)
--- NOTE | 2023-10-04 14:41 | ABS_PTH ---
PATIENT: Monse Reyes LOC: [place] [facility]#:[id number] AGE/SX: 68/F ROOM: RE10/04/[address]: Renata Mcmahon : 1955 BED: A DIS: 10/05/2023 SPEC #: [id number] RECD: 10/04/23 17:28 STATUS: KRISTINE REQ #: [id number] CHARITY: 10/04/23 14:[address]: Renata Mcmahon DEPT: Surgical Specimen RECD BY: Emely Meza ENTERED: 10/04/23 17:28 SP TYPE: Abscess OTHR DR: Nilda Bazan,Cinthia Angelo, Sue Vyas Tissues: 1 - ABSCESS Procedures: GROSS AND MICRO LEVEL 3 Comments: [id number]
--- NOTE | 2023-10-04 15:10 | W.ANESPOSTOP ---
Postoperative Evaluation Date, Time and Location Date Performed: 10/04/23 Time Performed: 15:10 Patient Location: PACU Vital Signs Most Recent Imported Vital Signs: Most Recent Vital Signs Temp Pulse Resp BP Pulse Ox 36.2 C L 80 16 149/64 H 97 10/04/23 12:52 10/04/23 12:52 10/04/23 12:52 10/04/23 12:52 10/04/23 12:52 Pain Score Most Recent Pain Score: Most Recent Pain Score Pain Level 0 10/04/23 12:52 Assessment Mental Status: Awake (Alert & Oriented to Patient Baseline) Airway and Respiratory Function: Patent airway with normal (patient baseline) respiratory exam Cardiovascular Function: Hemodynamically Stable Hydration Status: Adequately Hydrated Nausea & Vomiting: No Nausea or Vomiting Pain: Pain is tolerable per patient Peripheral Nerve Block: Patient did not receive a nerve block
[2023-10-04] MEDS: Lidocaine 1% Multi-Dose W/EPI 1/100,000 50 ML VIAL (15:12)
--- NOTE | 2023-10-04 15:23 | PDOC.DSDIS_ITS ---
Date of service: 10/04/23 Time of Service: 15:23 Discharge Plan Disposition Patient Disposition: Home Condition: Improving Discharge Details Admit Date/Time: 10/04/23 12:45 Admit Provider: Renata Mcmahon Attending Provider: Renata Mcmahon Primary Care Provider: Sue Sandoval Home Meds and New Rx's Prescriptions: New tramadol 50 mg tablet 50 mg PO Q4H PRNQty: 14 0RF Continued multivitamin Tablet 1 tab PO DAILY spironolactone 25 mg tablet 25 mg PO DAILY fluoxetine 40 mg capsule 40 mg PO DAILY potassium citrate 99 mg capsule 99 mg PO DAILY Entyvio 300 mg recon soln 300 mg IV Q8W Rx Instructions: administer over 30 mins metoprolol tartrate 50 mg tablet 50 mg PO BID Patient Comments: TAKE ONE TABLET BY MOUTH TWICE A DAY letrozole 2.5 mg tablet 2.5 mg PO DAILY Patient Comments: TAKE ONE TABLET BY MOUTH EVERY DAY Held aspirin [Adult Aspirin Regimen] 81 mg tablet,delayed release (DR/EC) 81 mg PO DAILY Hold Instructions: Resume on 10/17/23. don't take w/ ibuprofen Discharge Instructions Additional Instructions: Keep an ice bag on the incision. 20 minutes on and 20 minutes off. Ice keeps the swelling down and swelling causes pain. Make sure you wrap the ice pack in a towel and don't apply directly to the skin. -No driving for 24hrs or of you are taking narcotic pain medications. -Dr. Westbrook 8:00am -pain meds are very constipating: if you do not move your bowels daily take a dose of OTC Miralax -It is ok to shower. No bathe, soaking, swimming or hot tubs -Keep wound clean and dry. Wash incision with soap and water daily. Have to you can remove the packing in the shower. Then just let the water roll into the wound and flush it out a little bit. And then after you get out of the shower change packing. -Protein supplements daily. You may find that your appetite is smaller. Eat 3-6 small meals throughout the day. It is important to drink lots of water after surgery, 6-10 glasses a day. 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 -We do want you up walking, at least 5-6 times per day. This is very important to prevent pneumonia and blood clots. You can climb stairs, take them slowly. -No lifting over 5 pounds. This is very important to avoid developing a hernia in your incision. -You may find that you are very tired after surgery- this is normal. -please do not smoke for a minimum of 72 hours after surgery. ? Pain Management Protocol -Tylenol 1000mg every 6 hours.? Tylenol is an anti-inflammatory. -Ibuprofen 600mg every 6hrs prn pain.? Do not take aspirin while taking this medication.? Take this medication w/ food. Do not take on an empty stomach. -Use ice.? This also helps to keep swelling down *?It is important to take these medications to keep the swelling down.? Swelling is what causes pain. --Tramadol: muscle relaxant you can take as needed for pain >7. -Metamucil daily for bowels/constipation.? Do NOT strain to move your bowels!? This is like lifting 50#'s.? ?OR- Mirlax daily to prevent constipation. -We will arrange home health RN. They will bring supplies in the am. Packing needs to be changes daily. Wet to Dry Dressing Changes Your health care provider has covered your wound with a wet-to-dry dressing. With this type of dressing, a wet (or moist) gauze dressing is put on your wound and allowed to dry. Wound drainage and tissue can be removed when you take off the old dressing. Follow any instructions you are given on how to change the dressing. Use this sheet as a reminder. What to Expect at Home Your provider will tell you how often you should change your dressing at home. As the wound heals, you should not need as much gauze or packing gauze. Removing the Old Dressing Follow these steps to remove your dressing: ? Wash your hands thoroughly with soap and warm water before and after each dressing change. Remove the old dressing. If it is sticking to your skin, wet it with warm water to loosen it. ? Remove the gauze pads or packing tape from inside your wound. ? Changing Your Dressing Follow these steps to put a new dressing on: ? Place the gauze pads or packing tape in your wound. Carefully fill in the wound and any spaces under the skin.? Use a cotton tip applicator to gently push the packing material into the wound. ? Cover the wet gauze or packing tape with a large dry dressing pad. Use tape or rolled gauze to hold this dressing in place. ? Wash your hands again when you are finished. When to Call the Doctor Call your doctor if you have any of these changes around your wound: ? Worsening redness ? More pain ? Swelling ? Bleeding ? It is larger or deeper ? It looks dried out or dark ? The drainage is increasing ? The drainage has a bad smell Also call your doctor if: ? Your temperature is 100.5?F (38?C), or higher, for more than 4 hours ? Drainage is coming from or around the wound ? Drainage is not decreasing after 3 to 5 days ? Drainage is increasing ? Drainage becomes thick, henriquez, yellow, or smells bad ? Activity:: see above Equipment/Supplies:: No Equipment Needed Diet:: Carb Counting DS: Diagnosis Discharge Diagnosis (1) Aortic atherosclerosis: Status: Acute (2) Pre-diabetes: Status: Acute (3) Cholelithiasis: Status: Acute (4) Colostomy infection: Status: Acute (5) Crohn's disease: Status: Chronic Asessment and Plan: The patient is doing well post-op from their I&D of dominic-stomal abscess.? They are having no nausea or vomiting. They are tolerating liquids and a snack. The pt is not having any chest pain or SOB.? Their pain is adequately controlled. They have been able to urinate.? ?HEENT:? no eye pain/drainage/redness/swelling. Mild sore throat ?Cardio- NSR, no chest pain, BP stable- see VS record ?Pulm: no sob or productive cough. No hemoptysis ?Incision- dressing is c/d/i w/ no excessive bleeding or drainage ?I discussed with the patient the findings at the time of surgery and the jamarcus ent?s progress. ?We reviewed expectations at home; what the patient could expect for recovery time, and in the post-operative period.? We discussed the importance of walking to avoid blood clots and pneumonia.? We discussed and reviewed the patient's post-operative wound care and dressing needs.?? We reviewed their step-landeros pain management plan, Rx called to the pharmacy of their choice.? We reviewed activity and limitations-see discharge instructions. We reviewed warning signs, and when to seek medical attention- see d/c instructions.?? Patient was given a postoperative follow-up appointment. Patient verbalized understanding of their postoperative instructions, how do to take care of themselves and their incision, and the pain management plan. Please see discharge instructions.? (6) Abscess of colostomy: Status: Acute (7) Intra-abdominal abscess: Status: Acute (8) Hyperlipidemia: (9) Hypertension: (10) Tobacco use:
--- NOTE | 2023-10-04 15:29 | PDOC.HHF2F_ITS ---
Home Health Referral Home Health Orders Clinical synopsis of why skilled professionals are needed: Patient has a history of Crohn's disease and has a long-term permanent stoma. She has developed a peristomal abscess. She underwent incision and drainage on 10/03. She will need daily packing and dressing changes until healed. She is on an Tebo which is a biologic and an immunosuppressant. She recently had her A1c checked and it was 6.5. Medical diagnosis necessitation home health referral: Patient has a history of Crohn's disease and has a long-term permanent stoma. She has developed a peristomal abscess. She underwent incision and drainage on 10/03. She will need daily packing and dressing changes until healed. She is on an Tebo which is a biologic and an immunosuppressant. She recently had her A1c checked and it was 6.5. Registered Nurse: Check all that apply Assess for exacerbation of medical condition, instruct patient/caregivers on signs and symptoms to report for early detection: Ordered Assess wound for signs and symptoms of infection, instruct on wound care and/or provide skilled wound care consisting of: Peristomal abscess at 4 o'clock position. Incision and drainage was done on 10/03. Will need daily packing with wet-to-dry plain gauze or alginate. Home Bound Status Patient has a condition such that leaving home is medically contraindicated (Describe): Recent surgery and infection. Taking narcotic pain medication Describe why leaving home would require a considerable and taxing effort: Side effects from pain medication (sedation/drowsiness) and Requires frequent rest periods Encounter Date and Reason: I certify that a FTF encounter for this patient was performed on October 04, 2023 and that such encounter was related to the primary reason the patient requires home health services. The encounter was conducted in the following manner: * By me as the certifying physician, MANAGER LABOR DELIVERY, PA or * By an inpatient physician, MANAGER LABOR DELIVERY or PA during an inpatient stay who communicated findings to me, Certification And Authentication I certify that I composed the above information based on my clinical judgment relating to this patient's medical condition and, if applicable, clinical findings communicated to me by the NPP or inpatient physician who performed the FTF encounter. Name of Provider that will be monitoring home health services: Renata Mcmahon
[2023-10-04 16:34] LABS: Abs Immature Grans 0.02 10^3/uL (0.0-0.06); Absolute Basophil Count 0.07 10^3/uL (0.0-0.2); Absolute Eosinophil Count 0.53 10^3/uL (0.0-0.7); Absolute Lymphocyte Count 3.15 10^3/uL (1.2-3.4); Absolute Monocyte Count 0.81 10^3/uL (0.1-0.8); Basophils % 0.7 %; Eosinophils % 5.1 %; HCT 34.9 % (36.0-46.0); HGB 11.1 g/dL (11.2-15.7); Immature Grans % 0.2 %; Lymphocytes % 30.1 %; MCH 26.4 pg (27.0-33.0); MCHC 31.8 % (32.0-36.0); MCV 83 fL (80-95); MPV 9.5 fL (8.0-11.0); Monocytes % 7.7 %; Neutrophils % 56.2 %; Platelet Count 447 10^3/uL (130-400); RDW 15.4 % (11.7-14.6); RDW-SD 45.9 fL; WBC 10.48 10^3/uL (4.4-10.8)
[2023-10-04 16:56] LABS: ALT 17 U/L (14-59); AST 12 U/L (15-37); Albumin 2.9 g/dL (3.4-5.0); Alkaline Phosphatase 76 U/L (46-116); BUN 12 mg/dL (7-18); Bilirubin, Total 0.3 mg/dL (0.2-1.0); CREATININE 0.9 mg/dL (0.55-1.02); Calcium 9.1 mg/dL (8.5-10.1); Chloride 102 mmol/L (98-107); Estimated GFR 70.51 (mL/min/1.73m2); Glucose 103 mg/dL (74-106); Magnesium 1.6 mg/dL (1.8-2.4); Potassium 3.9 mmol/L (3.5-5.1); Sodium 138 mmol/L (136-145); Total Protein 7.2 g/dL (6.4-8.2); Troponin I < 50 ng/L (< or =60)
[2023-10-04] MEDS: Enoxaparin 40 MG/0.4 ML SYR SC (17:33)
[2023-10-04] MEDS: Ketorolac 15 MG/ML VIAL IVP (17:33)
[2023-10-04] MEDS: Normal Saline Flush 10 ML SYR IVP (17:33)
[2023-10-05] MEDS: Ketorolac 15 MG/ML VIAL IVP ×2 (01:00→11:49)
[2023-10-05] MEDS: Lactated Ringers 1,000 ML 80 ML IV (03:52)
[2023-10-05 06:47] LABS: Abs Immature Grans 0.02 10^3/uL (0.0-0.06); Absolute Basophil Count 0.04 10^3/uL (0.0-0.2); Absolute Lymphocyte Count 1.57 10^3/uL (1.2-3.4); Absolute Monocyte Count 0.51 10^3/uL (0.1-0.8); Absolute Neutrophil Count 5.43 10^3/uL (1.2-6.7); Basophils % 0.5 %; Eosinophils % 6.2 %; HCT 34.7 % (36.0-46.0); HGB 10.8 g/dL (11.2-15.7); Immature Grans % 0.2 %; Lymphocytes % 19.5 %; MCH 26.2 pg (27.0-33.0); MCHC 31.1 % (32.0-36.0); MCV 84 fL (80-95); Monocytes % 6.3 %; Neutrophils % 67.3 %; Platelet Count 357 10^3/uL (130-400); RBC 4.13 10^6/uL (3.93-5.22); RDW 15.3 % (11.7-14.6); RDW-SD 46.8 fL; WBC 8.07 10^3/uL (4.4-10.8)
[2023-10-05 07:53] VITALS: BP 134/63; PULSE 82; RESP 15; TEMP 36.3; O2SAT 90
--- NOTE | 2023-10-05 08:14 | ROE_ITS ---
Date of service: 10/04/23 Time of Service: 15:00 Operative Note Operative Note DATE OF PROCEDURE: 10/04/23 PRE-OP DIAGNOSIS: Peristomal abscess history of Crohn's POST-OP DIAGNOSIS: same PROCEDURE: Incision and drainage of abscess and interrogation of colostomy SURGEON: Renata Mcmahon ANESTHESIA TYPE: Local By Surgeon and General:No Airway Refer to Anesthesia Record ESTIMATED BLOOD LOSS: 5 PATHOLOGY: other COMPLICATIONS: None Patient was transported to: PACU Patient's condition: stable Procedure Description: Patient is a 68-year-old female with a history of Crohn's. She had a peristomal abscess 2 or 3 weeks ago. This is not completely healed. As demonstrated by CT and ongoing drainage and elevated lab work. Patient is here today for repeat I&D. Informed consent is obtained explaining risks and benefits of the procedure including not limited to: Bleeding, infection, pneumonia, blood clots, damage to the colostomy resulting in need for exploratory laparotomy and redo of colostomy. Chronic pain and numbness. Delayed healing, and need to heal by secondary intent with daily dressing changes. Patient is brought to the operative suite and placed in the supine position. General anesthesia is administered is per the department of anesthesia. The colostomy appliance is removed. She has significant cobblestoning seen on her s samara that is indicative of Crohn's disease. Patient is prepped and draped in usual sterile fashion using a Betadine scrub solution she received preop antibiotics. Timeout is performed. 30 cc of 1% lidocaine is used for local anesthesia. The site of the previous I&D is opened up. Cultures are taken. We encountered purulent fluid. Curette is used to clean out the cavity. The cavity is: [id number] This is curetted and all necrotic tissue removed. Tissue was sent for biopsy. Cautery was used to provide hemostasis. The wound was irrigated with a liter of saline. It is then packed with plain packing and sterile compression dressings are applied. O'clock colostomy appliance is applied. She will need home health for dressing changes and continued antibiotics. Patient Toller procedure without complication transferred to cover room stable condition.
--- NOTE | 2023-10-05 08:19 | W.PM.PROGNOT ---
Date of Service Date of service: 10/05/23 Time of Service: 08:19 Assessment and Plan Assessment and plan (1) Pre-diabetes: Status: Acute (2) Abscess of colostomy: Status: Acute Assessment and plan: POD #1 s/p I&D of dominic-stomal abscess. Dressing in place. Dr. Mcmahon will take down later today and evaluate this. Regular diet. Activity as tolerated. Continue with pain control Invanz for abx Wound education and dressing change later today. Possible d/c home later today. (3) Crohn's disease: Status: Chronic Subjective Subjective Interval history since last seen: Monse states she was not able to sleep much last night. But otherwise is feeling well. She is motivated to learn how to proceed with dressing changes so that she can be d/c home. Exam Const General: cooperative, healthy appearing and comfortable Orientation: alert and oriented x3 Resp Effort & Inspection: normal respiratory effort, no audible wheezes and no cough GI Inspection: normal to inspection and non-distended Palpation: soft, no guarding and tender (Around stoma and I&D site) Other: Dressing in place. Objective Last Vital Signs Temp 36.3 C L 10/05/23 07:53 Pulse 82 10/05/23 07:53 Resp 15 10/05/23 07:53 BP 134/63 10/05/23 07:53 Pulse Ox 90 L 10/05/23 07:53 Laboratory Results - last 24 hr 10/04/23 10/05/23 16:20 06:30 WBC 10.48 8.07 RBC 4.20 4.13 Hgb 11.1 L 10.8 L Hct 34.9 L 34.7 L MCV 83 84 MCH 26.4 L 26.2 L MCHC 31.8 L 31.1 L RDW 15.4 H 15.3 H Plt Count 447 H 357 MPV 9.5 9.0 Immature Gran % 0.2 0.2 Neutrophils % 56.2 67.3 Lymphocytes % 30.1 19.5 Monocytes % 7.7 6.3 Eosinophils % 5.1 6.2 Basophils % 0.7 0.5 Nucleated RBC % 0.0 0.0 Absolute Neutrophils 5.90 5.43 Absolute Lymphocytes 3.15 1.57 Absolute Monocytes 0.81 H 0.51 Absolute Eosinophils 0.53 0.50 Absolute Basophils 0.07 0.04 Sodium 138 Potassium 3.9 Chloride 102 Carbon Dioxide 28.0 Anion Gap 8.0 BUN 12 Creatinine 0.9 Est GFR (CKD-EPI 2020) 70.51 Glucose 103 Calcium 9.1 Magnesium 1.6 L Total Bilirubin 0.3 AST 12 L ALT 17 Alkaline Phosphatase 76 Troponin I < 50 Total Protein 7.2 Albumin 2.9 L PAWSS Have you Been Recently Intoxicated or Drunk Within the Last 30 days?: No Have you Ever Experienced Previous Episodes of Alcohol Withdrawal?: No Have you ever Experienced Withdrawal Seizures?: No Have you ever Experienced Delirium Tremens(DT)s?: No Have you ever undergone Alcohol Rehabilitation Treatment (i.e, inpt ot outpatient treatment programs)?: No Have you ever Experienced Blackouts?: No Have you ever Combined Alcohol with other Downers within the last 90 days?: No Have you ever Combined Alcohol with any other Substance of Abuse during the last 90 days?: No Positive Blood Alcohol level on Presentation? [PCS.BAL]: No Evidence of Increased Autonomic Activity (i.e. HR>120, tremor, sweating, agitation, nausea)?: No Result: 0 Time Spent with Patient Time Spent with Patient: <25 minutes Time was spent: preparing to see the patient(eg.review tests), obtaining and/or reviewing separately otained hiistory and counseling the patient
[2023-10-05] MEDS: Spironolactone 25 MG TAB PO (08:24)
[2023-10-05] MEDS: Letrozole 2.5 MG TAB PO (08:24)
[2023-10-05] MEDS: Metoprolol 50 MG TAB PO (08:24)
[2023-10-05] MEDS: FLUoxetine 20 MG CAP 40 MG PO (08:24)
[2023-10-05] MEDS: Normal Saline Flush 10 ML SYR IVP ×4 (08:25→13:31)
[2023-10-05] MEDS: MORPHine 2 MG/ML SYR IVP (12:50)
--- NOTE | 2023-10-05 13:14 | INITIAL_ITS ---
Date of service: 10/05/23 Time of Service: 13:14 Care Management Initial Assmt Initial Assessment REASON FOR HOSPITALIZATION:: Perisomal abscess PREVIOUS FUNCTIONAL STATUS/SOCIAL/FAMILY SUPPORTS:: Monse lives in [place] with her daughter, Shirin. 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 She is independent at baseline. CURRENT FUNCTIONAL STATUS:: Per Surgeon, Monse is motivated to learn how to proceed with dressing changes so that she can possibly be discharged home later today. ADVANCE DIRECTIVES:: None on file. Has patient been provided with info about the portal/API?: Yes Did the patient sign up for the portal?: Yes CODE STATUS:: Full Code INSURANCE COVERAGE / FINANCIAL ISSUES:: Medicare Part A & B, [employer] Medicare Supplement Ins PRIMARY CARE PHYSICIAN:: Sue Sandoval POTENTIAL DISCHARGE NEEDS:: Evaluations for further needs, follow up appointments. PATIENT/FAMILY EDUCATION NEEDS:: Review discharge instructions and limitations, discussion of self care needs including Ask Me Three TRANSPORTATION:: Via private vehicle with family. PLAN:: Monse had incision and drainage for perisomal abscess yesterday, Dr. Mcmahon will re-evaluate later today. Anticipate Monse will return home once medically cleared with new home health orders for dressing changes. Her daughter will drive her home via private vehicle when ready. She will follow up with her PCP and discharge plan of care. CM will continue to follow. PFSH All Active Problems Aortic atherosclerosis (Acute) Pre-diabetes (Acute) a1c 6.5 10/02 Abscess of colostomy (Acute) Intra-abdominal abscess (Acute) Crohn's disease (Chronic) Colostomy infection (Acute) Cholelithiasis (Acute) Bilateral carotid bruits (Acute) Medical History Breast cancer Diverticulitis Tobacco use Hypertension Hyperlipidemia Vitamin D deficiency Anxiety disorder Shingles Pancreatic lesion Surgical History History of colonoscopy H/O colectomy Social History Smoking/Tobacco Use Status: Current-Occasional Tobacco Type: cigarettes Smoking risk assessment performed?: Yes Alcohol Intake: current Alcohol Intake frequency: holidays/special occasions only Alcohol type: wine Drug use: Never Substance use type: does not use Housing: house Do you feel safe at home: Yes Do you feel safe in your relationship?: Yes
[2023-10-05] MEDS: ERTAPENEM 1 GM in Normal Saline 50 ML IVPB (13:30)
--- NOTE | 2023-10-05 13:42 | W.INDIABCONS ---
Date of service: 10/05/23 Time of Service: 13:42 Diabetes Inpatient Consult Reason for Visit: consult regarding A1C 6.5% - diabetes education DESCRIPTION/ASSESSMENT: Received consult regarding the above. Monse doesn't remember ever being told she had prediabetes, and now a little suprised to hear a1c hit diabetes dx level. However I reassured her that glucose numbers look good and the fact that she has no need for insulin while admitted points to this not being a very acute situation needs to be overly concerned about, but does need to be more conscious about regular meals, quality and quantity of carbs and getting consistent activity...basically eating good and having active lifestyle like we should all be working towards. 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 We did look at carb recs of 150g per day or 10 servings and reviewed some supporting education materials. She did take my card and will consider for further outpatient support in diabetes education and menu planning INTERVENTION: pt ordered for consistent carb diet appropriately. we reviewed carb goals and carb sources today PLAN: follow up in the outpt setting post discharge. will monitor glucose labs and general nutrition status the remainder of her admission Time Spent in Nutritional Counseling and Treatment: 10 minutes
--- NOTE | 2023-10-05 14:07 | DSE_ITS ---
Date of service: 10/05/23 Time of Service: 14:07 DS: Diagnosis Discharge Diagnosis (1) Pre-diabetes: Status: Acute (2) Abscess of colostomy: Status: Acute (3) Crohn's disease: Status: Chronic Discharge Plan Disposition Patient Disposition: Home Condition: Improving Discharge Details Reason For Visit: Peristomal Abcess Admit Date/Time: 10/04/23 12:45 Admit Provider: Renata Mcmahon Attending Provider: Renata Mcmahon Primary Care Provider: Sue Sandoval [facility] Hospital Course: Patient was seen in clinic on 10/02. This was her first outpatient visit since she was originally diagnosed with a Peris stomal abscess 3 weeks ago. The wound was not packed. She has recently been diagnosed with Crohn's and has been started on Entyvio by GI at [facility]. I do not think the cause of the abscess has ever been elucidated. I am concerned that this is a fistulous tract from her stoma. We did irrigate and look for a fistula at the time of surgery but none was visualized. There is no gross stool seen in the wound today. Patient went to the OR on 10/03 for incision and drainage. She tolerated this well. We changed packing at bedside today. She tolerated this well. She received 2 doses of Invanz in the hospital and will go home on Augmentin. Yogurt daily while on antibiotics. Continue her NT Voet dosing, however her next dose is not for 6 weeks. Patient was counseled on smoking cessation. She was also found to have the A1c is 6.5. Interesting him and talk to her about carb control. The redness and swelling is decreased around the incision. She is skilled and knowledgeable of changing her colostomy bags. She will follow-up in clinic next week. All questions were answered to her satisfaction. See discharge instructions. Home Meds and New Rx's Prescriptions: New tramadol 50 mg tablet 50 mg PO Q4H PRNQty: 14 0RF amoxicillin-pot clavulanate 875-125 mg tablet 1 tab PO Q12H 5 Days Qty: 10 0RF Rx Instructions: First dose should be 516 in a.m. yogurt daily while on antibiotics. Finish all Continued multivitamin Tablet 1 tab PO DAILY spironolactone 25 mg tablet 25 mg PO DAILY fluoxetine 40 mg capsule 40 mg PO DAILY potassium citrate 99 mg capsule 99 mg PO DAILY Entyvio 300 mg recon soln 300 mg IV Q8W Rx Instructions: administer over 30 mins metoprolol tartrate 50 mg tablet 50 mg PO BID Patient Comments: TAKE ONE TABLET BY MOUTH TWICE A DAY letrozole 2.5 mg tablet 2.5 mg PO DAILY Patient Comments: TAKE ONE TABLET BY MOUTH EVERY DAY Held aspirin [Adult Aspirin Regimen] 81 mg tablet,delayed release (DR/EC) 81 mg PO DAILY Hold Instructions: Resume on 10/17/23. don't take w/ ibuprofen Discharge Instructions Additional Instructions: Keep an ice bag on the incision. 20 minutes on and 20 minutes off. Ice keeps the swelling down and swelling causes pain. Make sure you wrap the ice pack in a towel and don't apply directly to the skin. -No driving for 24hrs or of you are taking narcotic pain medications. -Dr. Westbrook 8:00am 10/10 at surgical [facility]. [facility] across from the hospital. [phone] -pain meds are very constipating: if you do not move your bowels daily take a dose of OTC Miralax -It is ok to shower. No bathe, soaking, swimming or hot tubs -Keep wound clean and dry. Wash incision with soap and water daily. Have to you can remove the packing in the shower. Then just let the water roll into the wound and flush it out a little bit. And then after you get out of the shower change packing. -Protein supplements daily. You may find that your appetite is smaller. Eat 3-6 small meals throughout the day. It is important to drink lots of water after surgery, 6-10 glasses a day. 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 -We do want you up walking, at least 5-6 times per day. This is very important to prevent pneumonia and blood clots. You can climb stairs, take them slowly. -No lifting over 5 pounds. This is very important to avoid developing a hernia in your incision. -You may find that you are very tired after surgery- this is normal. -please do not smoke for a minimum of 72 hours after surgery. ? Pain Management Protocol -Tylenol 1000mg every 6 hours.? Tylenol is an anti-inflammatory. -Ibuprofen 600mg every 6hrs prn pain.? Do not take aspirin while taking this medication.? Take this medication w/ food. Do not take on an empty stomach. -Use ice.? This also helps to keep swelling down *?It is important to take these medications to keep the swelling down.? Swelling is what causes pain. --Tramadol: muscle relaxant you can take as needed for pain >7. -Metamucil daily for bowels/constipation.? Do NOT strain to move your bowels!? This is like lifting 50#'s.? ?OR- Mirlax daily to prevent constipation. -Tramadol 60 minutes prior to dressing changes You do have 1 bottle of packing that you are taking home with you from the hospital- Start Augmentin/antibiotics- a.m. 10/05. -You will have to drainage from the incision site. This is normal. You may need to change the dressing once or twice a day as needed. If there is any increase in redness/drainage/swelling/pain/fever greater than 101, call our office or go to the ER. -We will arrange home health RN. They will bring supplies in the am. Packing needs to be changes daily. Wet to Dry Dressing Changes Your health care provider has covered your wound with a wet-to-dry dressing. With this type of dressing, a wet (or moist) gauze dressing is put on your wound and allowed to dry. Wound drainage and tissue can be removed when you take off the old dressing. Follow any instructions you are given on how to change the dressing. Use this sheet as a reminder. What to Expect at Home Your provider will tell you how often you should change your dressing at home. As the wound heals, you should not need as much gauze or packing gauze. Removing the Old Dressing Follow these steps to remove your dressing: ? Wash your hands thoroughly with soap and warm water before and after each dressing change. Remove the old dressing. If it is sticking to your skin, wet it with warm water to loosen it. ? Remove the gauze pads or packing tape from inside your wound. ? Changing Your Dressing Follow these steps to put a new dressing on: ? Place the gauze pads or packing tape in your wound. Carefully fill in the wound and any spaces under the skin.? Use a cotton tip applicator to gently push the packing material into the wound. ? Cover the wet gauze or packing tape with a large dry dressing pad. Use tape or rolled gauze to hold this dressing in place. ? Wash your hands again when you are finished. When to Call the Doctor Call your doctor if you have any of these changes around your wound: ? Worsening redness ? More pain ? Swelling ? Bleeding ? It is larger or deeper ? It looks dried out or dark ? The drainage is increasing ? The drainage has a bad smell Also call your doctor if: ? Your temperature is 100.5?F (38?C), or higher, for more than 4 hours ? Drainage is coming from or around the wound ? Drainage is not decreasing after 3 to 5 days ? Drainage is increasing ? Drainage becomes thick, henriquez, yellow, or smells bad ? Activity:: see above Equipment/Supplies:: No Equipment Needed Diet:: Carb Counting DS: Summary Time Spent with Patient providing and/or coordinating discharge services: Greater than 30 minutes Status at Discharge Functional status at discharge: independent ambulation Overall status at discharge: patient is progressing back to baseline Mental Status: mental status grossly normal Speech and Movement: speech and movement normal Mood: congruent mood Affect: normal affect Quality:SDOH Health Related Social Needs: No Data to Display Exam Psych Mental Status: mental status grossly normal Speech and Movement: speech and movement normal Mood: congruent mood Affect: normal affect DS: Data Vitals/I&O Vitals and I&O: Vital Signs Temperature 36.3 C L 10/05/23 07:53 Temperature Source Tympanic 10/05/23 07:53 Pulse 82 10/05/23 07:53 Pulse Rhythm Regular 10/05/23 09:52 Respiratory Rate 15 10/05/23 07:53 Respiratory Effort Normal 10/05/23 09:52 Respiratory Depth Normal 10/05/23 09:52 Respiratory Pattern Normal 10/05/23 09:52 Blood Pressure 134/63 10/05/23 07:53 Pulse Oximetry 90 L 10/05/23 07:53 Respiratory End-tidal CO2 27 10/04/23 15:48 Oxygen Delivery Method Room Air 10/05/23 07:53 Oxygen Flow Rate 0 10/05/23 07:53 Pain Level 4 10/05/23 12:50 Intake & Output 10/04/23 10/05/23 10/05/23 23:59 11:59 23:59 Intake Total 1100 / 1100 400 / 800 400 / 800 Output Total 300 / 300 300 / 300 Balance 800 / 800 100 / 500 400 / 500 Weight 65.5 kg Intake: IV 1100 / 1100 Oral 400 / 800 400 / 800 Output: Urine 300 / 300 300 / 300 Other: Urine Color Yellow Urine Appearance Clear Clear Urine Odor Normal Comment per patient she has been upntonthe bathroom Stool Size Moderate Stool Characteristics Soft Emesis Description None Data Completed and Pending Labs on day of discharge: Labs from last 24 hours 10/05/23 10/04/23 06:30 16:20 WBC 8.07 10.48 RBC 4.13 4.20 Hgb 10.8 L 11.1 L Hct 34.7 L 34.9 L MCV 84 83 MCH 26.2 L 26.4 L MCHC 31.1 L 31.8 L RDW 15.3 H 15.4 H Plt Count 357 447 H MPV 9.0 9.5 Immature Gran % 0.2 0.2 Neutrophils % 67.3 56.2 Lymphocytes % 19.5 30.1 Monocytes % 6.3 7.7 Eosinophils % 6.2 5.1 Basophils % 0.5 0.7 Nucleated RBC % 0.0 0.0 Absolute Neutrophils 5.43 5.90 Absolute Lymphocytes 1.57 3.15 Absolute Monocytes 0.51 0.81 H Absolute Eosinophils 0.50 0.53 Absolute Basophils 0.04 0.07 Sodium 138 Potassium 3.9 Chloride 102 Carbon Dioxide 28.0 Anion Gap 8.0 BUN 12 Creatinine 0.9 Est GFR (CKD-EPI 2020) 70.51 Glucose 103 Calcium 9.1 Magnesium 1.6 L Total Bilirubin 0.3 AST 12 L ALT 17 Alkaline Phosphatase 76 Troponin I < 50 Total Protein 7.2 Albumin 2.9 L 10/04/23 14:29 Abdomen Anaerobic Culture - Pending Preliminary micro results at discharge 10/04/23 14:29 Surgical Culture - Preliminary Abdomen Gram Negative Atif 10/04/23 14:29 Anaerobic Culture - Pending Abdomen PFSH All Active Problems Aortic atherosclerosis (Acute) Pre-diabetes (Acute) a1c 6.5 10/02 Abscess of colostomy (Acute) Intra-abdominal abscess (Acute) Crohn's disease (Chronic) Colostomy infection (Acute) Cholelithiasis (Acute) Bilateral carotid bruits (Acute) Medical History Breast cancer Diverticulitis Tobacco use Hypertension Hyperlipidemia Vitamin D deficiency Anxiety disorder Shingles Pancreatic lesion Surgical History History of colonoscopy H/O colectomy Social History Smoking/Tobacco Use Status: Current-Occasional Tobacco Type: cigarettes Smoking risk assessment performed?: Yes Alcohol Intake: current Alcohol Intake frequency: holidays/special occasions only Alcohol type: wine Drug use: Never Substance use type: does not use Housing: house Do you feel safe at home: Yes Do you feel safe in your relationship?: Yes Time Spent with Patient Time Spent with Patient: 45-69 minutes Time was spent: preparing to see the patient(eg.review tests), obtaining and/or reviewing separately otained hiistory, ordering medications,tests, procedures, referring, communicating with other health child care centre director, indepentently interpreting results, counseling the patient and care coordination
== END 2023-10-05 15:27 | disposition home or self-care (01) ==
LOC: PDS 15:29 → MS 16:43 → PDS 16:48
PROVIDERS: Admitting Provider Surgery; PCP Family Medicine; Visit Provider Surgery
PROC: (CPT 44340; principal; 2023-10-04 13:30)
DX: L02.211 Cutaneous abscess of abdominal wall; K94.02 Colostomy infection; R73.03 Prediabetes; K50.90 Crohn's disease, unspecified, without complications; I10 Essential (primary) hypertension; E78.5 Hyperlipidemia, unspecified; K80.20 Calculus of gallbladder without cholecystitis without obstruction; I70.0 Atherosclerosis of aorta
CPT/HCPCS: 44340; 10060; 00123; 80053; 87077; J1650; 83735; 84484; 85025; 87070; 87075; 87186; 87205; 88304; J1335; J1885; J2004; J2250; J2270; J2405; J2704

== ENCOUNTER → 2023-10-11 07:47 | Outpatient (BNVA) | payer MEDICARE, OTHER, SELFPAY | PROVIDERS: PCP Family Medicine; Referring Provider Family Medicine; Visit Provider Surgery | DX: K94.12 Enterostomy infection (principal) | CPT/HCPCS: 99215 ==

== ENCOUNTER 2023-10-14 02:21 | Outpatient (RCR) | payer MEDICARE, OTHER, SELFPAY ==
[2023-09-29] MEDS: VEDOLIZUMAB 300 MG in Normal Saline 250 ML 500 MG IVPB (08:30)
[2023-09-29] MEDS: Normal Saline Flush 10 ML SYR IVP (08:30)
[2023-10-14 08:25] LABS: HCT 39.6 % (36.0-46.0); HGB 12.2 g/dL (11.2-15.7); MCH 25.8 pg (27.0-33.0); MCHC 30.8 % (32.0-36.0); MCV 84 fL (80-95); MPV 9.1 fL (8.0-11.0); Platelet Count 562 10^3/uL (130-400); RBC 4.72 10^6/uL (3.93-5.22); RDW 15.1 % (11.7-14.6); RDW-SD 45.6 fL; WBC 13.55 10^3/uL (4.4-10.8)
[2023-10-14] MEDS: VEDOLIZUMAB 300 MG in Normal Saline 250 ML 500 MG IVPB (08:33)
[2023-10-14] MEDS: Normal Saline Flush 10 ML SYR IVP (08:33)
[2023-10-14 08:41] LABS: ALT 20 U/L (14-59); AST 12 U/L (15-37); Alkaline Phosphatase 98 U/L (46-116); Bilirubin, Direct 0.1 mg/dL (0.0-0.2); Bilirubin, Total 0.2 mg/dL (0.2-1.0); C-Reactive Protein 2.75 mg/dL (<or=0.5); Total Protein 7.7 g/dL (6.4-8.2)
== END 2023-10-21 23:59 | disposition home or self-care (01) ==
LOC: INF 02:21
PROVIDERS: PCP Family Medicine; Visit Provider Nurse Practitioner Family
DX: K51.919 Ulcerative colitis, unspecified with unspecified complications (principal)
CPT/HCPCS: 80076; 85027; 96365; 86140; J3380

== ENCOUNTER → 2023-10-18 13:06 | Outpatient (BNVA) | payer MEDICARE, OTHER, SELFPAY | PROVIDERS: PCP Family Medicine; Visit Provider Surgery | DX: Z48.815 Encounter for surgical aftercare following surgery on the digestive system (principal); K94.02 Colostomy infection ==

== ENCOUNTER → 2023-10-25 10:19 | Outpatient (BNVA) | payer MEDICARE, OTHER, SELFPAY | PROVIDERS: PCP Family Medicine; Referring Provider Family Medicine; Visit Provider Surgery | DX: Z48.815 Encounter for surgical aftercare following surgery on the digestive system (principal); K94.12 Enterostomy infection ==

== ENCOUNTER → 2023-11-01 07:48 | Outpatient (BNVA) | payer MEDICARE, OTHER, SELFPAY | PROVIDERS: PCP Family Medicine; Referring Provider Family Medicine; Visit Provider Surgery | DX: K94.12 Enterostomy infection (principal) | CPT/HCPCS: 99213 ==

== ENCOUNTER 2024-01-19 02:33 | Outpatient (CLI) | payer MEDICARE, OTHER, SELFPAY ==
--- NOTE | 2024-01-19 | DI.MRI_ITS ---
Exam(s) MR PELVIS WO/W EXAM: MR PELVIS WO/W CLINICAL HISTORY: S/P TOTAL COLECTOMY, Z90.49 TECHNIQUE: Multiplanar multisequence MRI of Pelvis was performed. CONTRAST MATERIAL: IV Contrast: 11 mL of Dotarem contrast administered. COMPARISON: CT CT ABDOMEN PELVIS W from 12/27/[address] ABDOMEN PELVIS W from 09/15/[address] ABDOMEN PELVIS W from 10/03/2023 FINDINGS: Soft tissues: The previously noted left lower quadrant ostomy has been closed. There is no residual wall abscess in this location. Mild scarring. There is a new right lower quadrant ostomy which is u nremarkable. Bowel: The patient is now status post total colectomy. There is rectal remnant noted which is unrema rkable. There is an adjacent area of low signal scarring. No bowel dilatation or wall thickening. Uterus is retroverted. There is an adjacent right ovarian cyst measuring 2.7 cm. There is mild dila tation of the right fallopian tube. The findings appear similar to prior examinations. No evidence of free fluid. The bladder is unremarkable. Bones: There is no fracture or contusion pattern. The SI joints and symphysis pubis are well maintai ophelia. Degenerative changes in the lower lumbar spine. IMPRESSION: Status post colectomy. Right lower quadrant ostomy is unremarkable. Small bowel is unremarkable. N o fistula is demonstrated. DATA REPOSITORY:
[2024-01-19] MEDS: Gadoterate meglumine 20 ML SYRINGE 11 ML IVP (14:47)
[2024-01-19] MEDS: Normal Saline Flush 10 ML SYR IVP (14:48)
--- NOTE | 2024-01-19 15:35 | DI.VRAD_ITS ---
PROCEDURE INFORMATION: Exam: MR Pelvis Without and With Contrast Exam date and time: 01/19/2024 2:33 PM Age: 68 years old Clinical indication: Other: S/P total colectomy, S/P tac. 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 Contrast material: DOTAREM; Contrast volume: 11 ml; Contrast route: INTRAVENOUS (IV); COMPARISON: CT ABD PELVIS W LEB 11/08/2023 12:43 AM FINDINGS: Intestine: Left hemicolectomy. Ostomy right lower quadrant. Intraperitoneal space: No free fluid. Urinary bladder: Bladder is unremarkable. Reproductive: Rectosigmoid remnant present in the upper portion of the rectosigmoid fragment is adjacent to the posterior wall of the upper vagina. There is no appreciable fat plane between the upper rectosigmoid prominent and the vagina and the fissures of cannot be excluded. Lymph nodes: No enlarged nodes. Bones/joints: Degenerative arthritis lower lumbar spine. Soft tissues: Postoperative changes ventral pelvic wall. Other findings: Images are degraded by motion. 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 Fistulagram would be helpful in further evaluation. Dictated and Authenticated by: Fatimah Chapin MD. Ordering:ARELY DALTON MD
== END 2024-01-19 02:53 ==
LOC: DI 02:34
PROVIDERS: PCP Family Medicine; Visit Provider Physician Assistant
DX: Z90.49 Acquired absence of other specified parts of digestive tract (principal)
CPT/HCPCS: 72197

== ENCOUNTER 2024-02-20 12:23 | Outpatient (REF) | payer MEDICARE, OTHER, SELFPAY ==
[2024-02-20 15:08] LABS: Calculated LDL 171 mg/dL (<100); Cholesterol 262 mg/dL (<200); HDL Cholesterol 56 mg/dL (40-60); Triglyceride 178 mg/dL (<150)
== END 2024-02-20 12:24 | disposition home or self-care (01) ==
LOC: NCHCN 12:23
PROVIDERS: PCP Family Medicine; Visit Provider Family Medicine
DX: E78.5 Hyperlipidemia, unspecified (principal); Z00.00 Encounter for general adult medical examination without abnormal findings
CPT/HCPCS: 80061; 83036

== ENCOUNTER 2025-03-05 10:58 | Outpatient (REF) | payer MEDICARE, OTHER, SELFPAY ==
[2025-03-05 15:45] LABS: Hemoglobin A1C 6.0 % (<5.7)
[2025-03-05 15:51] LABS: Calculated LDL 91 mg/dL (<100); Cholesterol 176 mg/dL (<200); HDL Cholesterol 54 mg/dL (>or=50); Triglyceride 157 mg/dL (<150)
== END 2025-03-05 10:59 | disposition home or self-care (01) ==
LOC: NCHCN 10:58
PROVIDERS: PCP Family Medicine; Visit Provider Family Medicine
DX: R73.03 Prediabetes (principal); E78.5 Hyperlipidemia, unspecified
CPT/HCPCS: 80061; 83036